=== PATIENT | male | born 1980 | race Caucasian/White ===

== ENCOUNTER 2016-09-13 18:03 | Inpatient (IN) | payer OTHER ==
[~2016-09-13] VITALS: Ht 182.9 cm; Wt 82.4 kg
[2016-09-13] MEDS ORDERED: SODIUM CHLORIDE 0.9% 1000ML 1,000 ML IV STA ×2 (18:22→19:43)
[2016-09-13] MEDS ORDERED: KETOROLAC TROMETHAMINE 30 MG/ML VIAL IV STA (18:22)
[2016-09-13] MEDS ORDERED: LIDOCAINE/EPINEPHRINE 1% 20 ML VIAL INFIL ONE (18:30)
[2016-09-13] MEDS ORDERED: CEFTRIAXONE SOD INJ 1 GM ADDVIAL IV STA (18:41)
[2016-09-13 18:57] LABS: BASO % 0.1 %; BASO ABS # 0.02 K/uL (0-0.2); COMPLETE YES; EOS % 0.3 %; HEMATOCRIT 45.5 % (42-52); IG% 0.3 %; LYMPH % 14.6 %; LYMPH ABS # 2.68 K/uL (1.2-3.4); MEAN CELL VOLUME 89.2 fL (80-100); MEAN CORPUSCULAR HGB CONC 35.8 g/dl (32-36); MEAN PLATELET VOLUME 9.8 fL (7.4-10.4); MONO % 9.7 %; PLATELET COUNT 310 K/uL (130-400); WHITE BLOOD COUNT 18.38 K/uL (4.8-10.8)
[2016-09-13 19:13] LABS: BUN/CREATININE RATIO 9.4 (10-20); CALCIUM 9.4 mg/dl (8.5-10.1); CREATININE 0.98 mg/dl (0.60-1.40); POTASSIUM 3.8 mmol/L (3.5-5.1)
[2016-09-13] MEDS ORDERED: MoRPHine SULFATE 10 MG/ML CARP/VIAL IV STA (19:32)
--- NOTE | 2016-09-13 19:33 | DIAGNOSTIC IMAGING REPORT ---
LEFT FOREARM 2 VIEWS HISTORY: left arm abscess, IV drug user, r/o foreign body COMPARISON: None. FINDINGS: There is no fracture or dislocation. Soft tissue swelling anteriorly. No radiopaque foreign bodies. IMPRESSION: Anterior soft tissue swelling. No radiopaque foreign bodies. Electronically signed by: Arun Pagan M.D. 09/13/2016 7:31 PM Dictated Date/Time: 09/13/2016 7:31 PM
[2016-09-13] MEDS ORDERED: CLINDAMYCIN IV 900 MG in DEXTROSE 5% ADD-VANTAGE 100ML 100 ML IV ONE (19:45)
[2016-09-13] MEDS ORDERED: ACETAMINOPHEN 500 MG TAB PO STA (20:24)
--- NOTE | 2016-09-13 20:50 | EMERGENCY ROOM VISIT NOTE ---
History First contact with patient: 18:11 Chief Complaint: WOUND INFECTION Stated Complaint: LUMP ON LF ARM Nursing Triage Summary: Left anterior forearm with redness/swelling in the shape of a [place]. Three raised bumps noted. He relates that it is painful. He relates that he injected heroine with a mixture of water into the vein with a clean needle. He relates that a small amount was administered. History of Present Illness The patient is a 35 year old male who presents to the Emergency Room with complaints of left arm pain and swelling. The patient states that he is an IV drug user. He notes that 3-4 days ago, he attempted to inject heroin into his left forearm but missed. He reports that there was initially a small bump on the forearm, but this has gradually increased in size and become red and warm to touch over the past several days. He denies fevers but states that he has been nauseous. He denies any history of infections. He has not taken any medication for his pain. He rates his discomfort a 9/10. The patient reports he has used heroin for the past 3-4 years. He has recently been buying Subutex from his friends in an attempt to quit using heroin. He has never been to rehabilitation and states this is because he does not have health insurance. He is requesting help quitting heroin. He denies any suicidal or homicidal ideations. He reports a history of mild asthma but denies any daily medications. He reports a penicillin allergy and states he has not had this since he was very young, but believes he had a rash. Review of Systems A complete 10 point review of systems was reviewed with the patient with pertinent positives and negatives as per history of present illness. All else were negative. Past Medical/Surgical History Medical Problems: (1) Cellulitis and abscess of upper arm and forearm (2) Sepsis affecting skin Social History Smoking Status: Current Every Day Smoker Current/Historical Medications No Active Prescriptions or Reported Meds Allergies Coded Allergies: Penicillins (Unverified Allergy, Mild, 09/13/16) Physical Exam Vital Signs Date Time Temp Pulse Resp B/P Pulse Ox O2 Delivery O2 Flow Rate FiO2 09/13/16 20:38 110 09/13/16 20:17 37.7 96 20 129/76 97 Room Air 09/13/16 20:16 100 Room Air 09/13/16 18:06 37.5 129 20 138/84 98 Room Air Physical Exam VITALS: Vitals are noted on the nurse's note and reviewed by myself. Vital signs stable. GENERAL: This is a 35-year-old male, uncomfortable appearing, nondiaphoretic, well-developed well-nourished. SKIN: There is an area of erythema, warmth and fluctuance over the left anterior proximal forearm which measures approximately 3.5 cm in diameter. There is no drainage or pointing. Significant tenderness to palpation. There is mild erythema over the anterior aspect of the left upper arm. HEENT: Normocephalic. PERRLA. EOMI. Nares patent. Mucous membranes moist. Neck is supple without nuchal rigidity. HEART: Regular rate and rhythm without murmurs gallops or rubs. LUNGS: Clear to auscultation bilaterally without wheezes, rales or rhonchi. MUSCULOSKELETAL: Full range of motion of the left elbow and wrist. Radial pulses 2+. NEURO: Patient was alert and oriented to person place and time. Normal sensation to light and sharp touch. Medical Decision & Procedures ER Provider Diagnostic Interpretation: LEFT FOREARM 2 VIEWS HISTORY: left arm abscess, IV drug user, r/o foreign body COMPARISON: None. FINDINGS: There is no fracture or dislocation. Soft tissue swelling anteriorly. No radiopaque foreign bodies. IMPRESSION: Anterior soft tissue swelling. No radiopaque foreign bodies. Laboratory Results 09/13/16 18:40 Red Blood Count 5.10, Mean Corpuscular Volume 89.2, Mean Corpuscular Hemoglobin 32.0, Mean Corpuscular Hemoglobin Concent 35.8, Mean Platelet Volume 9.8, Neutrophils (%) (Auto) 75.0, Lymphocytes (%) (Auto) 14.6, Monocytes (%) (Auto) 9.7, Eosinophils (%) (Auto) 0.3, Basophils (%) (Auto) 0.1, Neutrophils # (Auto) 13.79, Lymphocytes # (Auto) 2.68, Monocytes # (Auto) 1.79, Eosinophils # (Auto) 0.05, Basophils # (Auto) 0.02 09/13/16 18:40 Test 09/13/16 18:40 09/13/16 21:12 White Blood Count 18.38 K/uL (4.8-10.8) Red Blood Count 5.10 M/uL (4.7-6.1) Hemoglobin 16.3 g/dL (14.0-18.0) Hematocrit 45.5 % (42-52) Mean Corpuscular Volume 89.2 fL (80-100) Mean Corpuscular Hemoglobin 32.0 pg (25-34) Mean Corpuscular Hemoglobin Concent 35.8 g/dl (32-36) Platelet Count 310 K/uL (130-400) Mean Platelet Volume 9.8 fL (7.4-10.4) Neutrophils (%) (Auto) 75.0 % Lymphocytes (%) (Auto) 14.6 % Monocytes (%) (Auto) 9.7 % Eosinophils (%) (Auto) 0.3 % Basophils (%) (Auto) 0.1 % Neutrophils # (Auto) 13.79 K/uL (1.4-6.5) Lymphocytes # (Auto) 2.68 K/uL (1.2-3.4) Monocytes # (Auto) 1.79 K/uL (0.11-0.59) Eosinophils # (Auto) 0.05 K/uL (0-0.5) Basophils # (Auto) 0.02 K/uL (0-0.2) RDW Standard Deviation 42.7 fL (36.4-46.3) RDW Coefficient of Variation 13.0 % (11.5-14.5) Immature Granulocyte % (Auto) 0.3 % Immature Granulocyte # (Auto) 0.05 K/uL (0.00-0.02) Anion Gap 10.0 mmol/L (3-11) Est Creatinine Clear Calc Drug Dose 116.6 ml/min Estimated GFR () 116.1 Estimated GFR (Non- 100.2 BUN/Creatinine Ratio 9.4 (10-20) Calcium Level 9.4 mg/dl (8.5-10.1) Medications Administered Medications (Trade) Dose Ordered Sig/Marilee Route Start Time Stop Time Status Last Admin Dose Admin Lidocaine/ Epinephrine (Xylocaine/Epine 1% Inj) 20 ml ONE ONCE INFIL 09/13/16 18:30 09/13/16 18:31 DC 09/13/16 19:04 20 ML Ketorolac Tromethamine 30 mg 30 mg NOW STAT IV 09/13/16 18:22 09/13/16 18:25 DC 09/13/16 19:05 30 MG Sodium Chloride (Nss 1000ml) 1,000 ml @ 999 mls/hr Q1H1M STAT IV 09/13/16 18:22 09/13/16 19:22 DC 09/13/16 19:04 999 MLS/HR Ceftriaxone Sodium 1 gm 1 gm NOW STAT IV 09/13/16 18:41 09/13/16 18:42 DC 09/13/16 19:05 1 GM Clindamycin Phosphate/Dextrose (Cleocin Iv/ Dextrose Add-Loomis 100ML) 106 ml @ 100 mls/hr ONE ONCE IV 09/13/16 19:45 09/13/16 20:48 DC 09/13/16 19:53 100 MLS/HR Morphine Sulfate 8 mg 8 mg NOW STAT IV 09/13/16 19:32 09/13/16 19:33 DC 09/13/16 19:32 8 MG Sodium Chloride (Nss 1000ml) 1,000 ml @ 999 mls/hr Q1H1M STAT IV 09/13/16 19:43 09/13/16 20:43 DC 09/13/16 20:00 999 MLS/HR Acetaminophen (Tylenol Tab) 1,000 mg NOW STAT PO 09/13/16 20:24 09/13/16 20:25 DC 09/13/16 20:29 1,000 MG Acetaminophen (Tylenol Tab) 650 mg Q4H PRN PO 09/13/16 21:15 10/13/16 21:14 09/13/16 22:32 650 MG Ondansetron HCl (Zofran Inj) 4 mg Q6H PRN IV 09/13/16 21:15 10/13/16 21:14 09/13/16 22:32 4 MG Procedure Verbal consent was obtained to perform the procedure. After saline and Betadine cleansing and 5 mL of 1% buffered lidocaine with epinephrine anesthesia , the abscess was incised with a number 11 scalpel blade. A large amount of purulent material was released with more expressed by pressure. A swab was obtained for culture. The abscess cavity was further probed with a needle furniture mover driver and the deep pocket expressed. The abscess cavity was then copiously irrigated with sterile saline under pressure. The area was then packed with sterile packing. The area was cleaned with sterile saline and dressed with bacitracin and a bulky bandage. The patient tolerated the procedure well. ED Course The patient was evaluated as above. Labs were drawn and IV access was obtained. Blood cultures were drawn. Patient was medicated with 1 g Rocephin. He was given 30 mg Toradol for pain. Patient was reevaluated and had continued pain. Patient was given 8 mg morphine IV. Incision and drainage was performed as noted in the procedure section. [facility] They agreed to evaluate the patient for admission. Medical Decision Differential diagnosis includes cellulitis, abscess, sepsis, among others. The patient is a 35-year-old male who presents today complaining of left forearm swelling and pain. Physical exam reveals a large abscess with surrounding cellulitis. Labs revealed a leukocytosis of greater than 18,000. Lactic acid was elevated at 3.4. Blood cultures are pending. The patient was given initial doses of Rocephin and clindamycin. Incision and drainage was performed. Wound culture was obtained and is pending. The patient is febrile and tachycardic. He is septic secondary to the forearm abscess. He does have a history of IV drug use and states he would like help getting clean. The case was discussed with Dr. Gonzalez, ED attending physician. The patient was admitted to the [facility] service for further evaluation and care. Impression Primary Impression: Sepsis Additional Impression: Abscess of left forearm Departure Information Prescriptions No Active Prescriptions or Reported Meds Referrals Ousmane Loja M.D. (PCP) Patient Instructions My [facility] Problem Qualifiers Primary Impression: Sepsis Sepsis type: sepsis due to unspecified organism Qualified Codes: A41.9 - Sepsis, unspecified organism
--- NOTE | 2016-09-13 21:56 | History and Physical ---
History & Physical Date & Time of Service: September 13, 2016 at 21:23 Chief Complaint: Lump On Lf Arm Primary Care Physician: Ousmane Loja M.D. History of Present Illness Source: patient This is a 35 yo m that is presenting to us with redness/ pain in the left upper extremity after the patient tried to inject heroin into that arm "and missed". he stated that it started out as a small bump and has been progressively getting worse. It is an "ache like" pain and currently grades it as a 6/10. The wound was drained in the ED and pus was noted and sent for culture. He denies any chest pain, SOB, numbness/ tingling, weakness of the upper extremity. he had a subjective fever over the last 24 hours however. He does not take any medications and no known PMHx. He has not had surgeries in the past. He has not had any dental work recently nor any dental infection. Aside from heroin patient does note he smokes marijuana occasionally. Patient consented to HIV testing. PDMP reviewed and no concerns. Past Medical/Surgical History Drug Abuser Family History No significant family history Social History Smoking Status: Current Every Day Smoker (1 PPDx 15 year) Smokeless Tobacco Use: No Drug Use: heroin, marijuana Marital Status: single Housing status: lives with family (lives with parents) Multi-Drug Resistant Organisms History of MDRO: No Allergies Coded Allergies: Penicillins (Unverified Allergy, Mild, 09/13/16) Home Medications No Active Prescriptions or Reported Meds Review of Systems Constitutional: + chills, + fever Eyes: No worsening of vision ENT: No hearing loss Respiratory: No cough, No dyspnea at rest, No dyspnea on exertion, No shortness of breath, No sputum, No wheezing Cardiovascular: No chest pain Abdomen: No constipation, No diarrhea, No nausea, No pain, No vomiting Musculoskeletal: + swelling (as noted above), No joint pain, No muscle pain Genitourinary - Male: No dysuria, No hematuria Neurologic: No numbness/tingling, No weakness Endocrine: + fatigue Integumentary: + color change (as noted above) Physical Exam Vital Signs Date Time Temp Pulse Resp B/P Pulse Ox O2 Delivery O2 Flow Rate FiO2 09/13/16 20:38 110 09/13/16 20:17 37.7 96 20 129/76 97 Room Air 09/13/16 20:16 100 Room Air 09/13/16 18:06 37.5 129 20 138/84 98 Room Air General Appearance: no apparent distress Head: normocephalic, atraumatic Eyes: normal inspection ENT: normal ENT inspection, + pertinent finding (poor dentition) Neck: supple Respiratory/Chest: + pertinent finding (coarse breath sounds, occasional wheeze ) Cardiovascular: regular rate, rhythm, no murmur Abdomen/GI: normal bowel sounds, non tender, soft Back: normal inspection Extremities/Musculoskelatal: normal inspection, no calf tenderness, no pedal edema, + swelling (cellulitis noted from the left mid forarm on the palmar aspect and extends to the mid upper arm ) Neurologic/Psych: alert, normal mood/affect, oriented x 3 Skin: normal color, warm/dry, no rash Lymphatic: no adenopathy Diagnostics Laboratory Results Results Past 24 Hours Test 09/13/16 18:40 09/13/16 21:12 Range/Units White Blood Count 18.38 4.8-10.8 K/uL Red Blood Count 5.10 4.7-6.1 M/uL Hemoglobin 16.3 14.0-18.0 g/dL Hematocrit 45.5 42-52 % Mean Corpuscular Volume 89.2 80-100 fL Mean Corpuscular Hemoglobin 32.0 25-34 pg Mean Corpuscular Hemoglobin Concent 35.8 32-36 g/dl Platelet Count 310 130-400 K/uL Mean Platelet Volume 9.8 7.4-10.4 fL Neutrophils (%) (Auto) 75.0 % Lymphocytes (%) (Auto) 14.6 % Monocytes (%) (Auto) 9.7 % Eosinophils (%) (Auto) 0.3 % Basophils (%) (Auto) 0.1 % Neutrophils # (Auto) 13.79 1.4-6.5 K/uL Lymphocytes # (Auto) 2.68 1.2-3.4 K/uL Monocytes # (Auto) 1.79 0.11-0.59 K/uL Eosinophils # (Auto) 0.05 0-0.5 K/uL Basophils # (Auto) 0.02 0-0.2 K/uL RDW Standard Deviation 42.7 36.4-46.3 fL RDW Coefficient of Variation 13.0 11.5-14.5 % Immature Granulocyte % (Auto) 0.3 % Immature Granulocyte # (Auto) 0.05 0.00-0.02 K/uL Sodium Level 136 136-145 mmol/L Potassium Level 3.8 3.5-5.1 mmol/L Chloride Level 98 98-107 mmol/L Carbon Dioxide Level 28 21-32 mmol/L Anion Gap 10.0 3-11 mmol/L Blood Urea Nitrogen 9 7-18 mg/dl Creatinine 0.98 0.60-1.40 mg/dl Est Creatinine Clear Calc Drug Dose 116.6 ml/min Estimated GFR () 116.1 Estimated GFR (Non- 100.2 BUN/Creatinine Ratio 9.4 10-20 Random Glucose 102 70-99 mg/dl Lactic Acid Level 3.4 0.4-2.0 mmol/L Calcium Level 9.4 8.5-10.1 mg/dl Microbiology Results 09/13/16 Blood Culture, Received Pending 09/13/16 Blood Culture, Received Pending 09/13/16 Gram Stain, Received Pending 09/13/16 Wound Culture, Received Pending Diagnostic Radiology LEFT FOREARM 2 VIEWS HISTORY: left arm abscess, IV drug user, r/o foreign body COMPARISON: None. FINDINGS: There is no fracture or dislocation. Soft tissue swelling anteriorly. No radiopaque foreign bodies. IMPRESSION: Anterior soft tissue swelling. No radiopaque foreign bodies. Impression Assessment and Plan This is a 35 yo m suffering from sepsis secondary to cellulitis in the left forearm Sepsis secondary to left forearm cellulitis (leukocytosis, fever, elevated lactate) - Medsurg admission, hemodynamically stable - Cont Rocephin and add Vanco - Repeat lactate and a procal - trend CBC - to kofi cellulitis with a marker - NSS with 20 KCL @ 150cc/h - echo to r/o endocarditis - blood culture pending - wound culture pending Coarse breath sounds; tobacco abuser - CXR to evaluate - Duoneb prn - smoking cessation counselling Heroin Abuser - Ativan and BB prn - HIV and HCV DVT Prophylaxis - SCD, patient is mobile Resident Physician Supervision Note: I was present with Dr. Gotti during the history and exam. I discussed the case with the resident and agree with the findings and plan as documented in the note. Any exceptions or clarifications are listed here: 35 y/o M Hx intermittent IVDU - long-term Heroin abuse - presenting with injection site abscess, fevers - leukocytosis and lactic acidosis on initial labs. I&D peformed in ER OE AAO x 3 S1,2 R CTAB NT, ND, BS + No CCE + abscess/cellulitis L arm P: Vanc + Rocephin pending cultures Withdrawal measures inc PRN Ativan and Clonidine - may need referral to rehab following D/C If fevers persist and blood cultures pos - may need endocarditis w/u Documented By: Julian Rangel Level of Care Med/Surg Resuscitation Status FULL RESUSCITATION VTE Prophylaxis VTE Risk Assessment Done? Y/N: Yes Risk Level: Moderate Given or contraindicated: SCD's Social Service Consult None Apply Note Total Time: Critical Care 30 - 74 minutes Additional Copies To Ousmane Loja M.D.
[2016-09-13] MEDS ORDERED: ALBUT/IPRATROP 3MG/0.5MG NEB 3 ML VIAL INH PRN (22:00)
[2016-09-13] MEDS ORDERED: LORAZEPAM 2 MG/ML 1 ML VIAL IV PRN (22:00)
[2016-09-13] MEDS ORDERED: METOPROLOL TARTRATE 1 MG/ML VIAL IV PRN (22:00)
[2016-09-13 22:10] VITALS: BP 129/75; PULSE 100; TEMP 37.8; O2SAT 96
--- NOTE | 2016-09-13 22:11 | DIAGNOSTIC IMAGING REPORT ---
CHEST 2 VIEWS ROUTINE HISTORY: coarse breath sounds, fever COMPARISON: None. FINDINGS: The lungs are clear. Cardiac silhouette is normal in size. No pleural effusions. No pneumothorax. IMPRESSION: No acute process. Electronically signed by: Arun Pagan M.D. 09/13/2016 10:09 PM Dictated Date/Time: 09/13/2016 10:08 PM
[2016-09-13 22:18] VITALS: BP 129/75; PULSE 100; TEMP 37.8; O2SAT 96; Ht 182.9 cm; Wt 82.4 kg
[2016-09-13] MEDS ORDERED: VANCOMYCIN INJ 2,000 MG in SODIUM CHLORIDE 0.9% 500ML 500 ML IV ONE (22:30)
[2016-09-13] MEDS ORDERED: VANCOMYCIN CONSULT ACTIVE PRN (22:30)
[2016-09-13] MEDS ORDERED: NSS + 20MEQ KCL 1000ML 1,000 ML IV SCH (22:30)
[2016-09-13] MEDS: ONDANSETRON INJ 2 MG/ML 2 ML VIAL IV PRN (22:32)
[2016-09-13] MEDS: ACETAMINOPHEN 325 MG TAB PO PRN (22:32)
[2016-09-13] MEDS ORDERED: MoRPHine SULFATE 4 MG/ML 1 ML CARP\\VIAL ONE (23:11)
[2016-09-13 23:24] VITALS: BP 131/81; PULSE 99; TEMP 37.4; O2SAT 99
[2016-09-13] MEDS: LORAZEPAM INJ 1 MG in SYRINGE 0.5 ML IV PRN (23:24)
[2016-09-14] VITALS (11 sets, daily range): BP systolic 107–131; BP diastolic 61–83; PULSE 90–104; TEMP 36.7–37.6; O2SAT 94–99
[2016-09-14] MEDS: MoRPHine SULFATE 4 MG/ML 1 ML CARP\\VIAL IV PRN ×2 (01:48→03:26)
[2016-09-14] MEDS: LORAZEPAM INJ 1 MG in SYRINGE 0.5 ML IV PRN (03:14)
[2016-09-14] MEDS ORDERED: HYDROmorphone INJ 1 MG/ML SYR ONE (05:26)
[2016-09-14] MEDS: SODIUM CHLORIDE 0.9% 1000ML 1,000 ML IV SCH ×3 (05:28→18:28)
[2016-09-14] MEDS: VANCOMYCIN INJ 1,300 MG in SODIUM CHLORIDE 0.9% 250ML 250 ML IV SCH ×3 (05:33→21:52)
[2016-09-14 07:24] LABS: HEMATOCRIT 38.7 % (42-52); MEAN CELL VOLUME 88.4 fL (80-100); MEAN CORPUSCULAR HEMOGLOBIN 29.7 pg (25-34); MEAN CORPUSCULAR HGB CONC 33.6 g/dl (32-36); MEAN PLATELET VOLUME 9.3 fL (7.4-10.4); PLATELET COUNT 231 K/uL (130-400); RED BLOOD COUNT 4.38 M/uL (4.7-6.1); WHITE BLOOD COUNT 16.46 K/uL (4.8-10.8)
[2016-09-14 08:11] LABS: BUN/CREATININE RATIO 16.7 (10-20); CALCIUM 7.4 mg/dl (8.5-10.1); CREATININE 0.71 mg/dl (0.60-1.40)
[2016-09-14] MEDS: METOPROLOL TARTRATE 25 MG TAB PO SCH ×3 (08:18→20:46)
[2016-09-14] MEDS: ACETAMINOPHEN 325 MG TAB PO PRN (08:19)
[2016-09-14] MEDS: HYDROmorphone INJ 1 MG/ML SYR IV PRN ×4 (08:20→20:06)
--- NOTE | 2016-09-14 11:21 | Pharmacy Progress Note ---
Pharmacy Antibiotic Consult Date of Service: September 14, 2016. Pharmacy Dosing Scope Pharmacy is consulted to initiate vancomycin IV dosing therapy, order appropriate labs and adjust drug dose/frequency. Subjective The patient is a 35 year old male admitted on September 13, 2016 at 21:21. Objective Height (Feet): 6 Height (Inches): 0.00 Weight (Kilograms): 82.400 Lab Results (24hrs): Test 09/13/16 18:40 09/13/16 23:54 09/14/16 06:56 09/14/16 07:55 White Blood Count 18.38 K/uL (4.8-10.8) 16.46 K/uL (4.8-10.8) Red Blood Count 5.10 M/uL (4.7-6.1) 4.38 M/uL (4.7-6.1) Hemoglobin 16.3 g/dL (14.0-18.0) 13.0 g/dL (14.0-18.0) Hematocrit 45.5 % (42-52) 38.7 % (42-52) Mean Corpuscular Volume 89.2 fL (80-100) 88.4 fL (80-100) Mean Corpuscular Hemoglobin 32.0 pg (25-34) 29.7 pg (25-34) Mean Corpuscular Hemoglobin Concent 35.8 g/dl (32-36) 33.6 g/dl (32-36) Platelet Count 310 K/uL (130-400) 231 K/uL (130-400) Mean Platelet Volume 9.8 fL (7.4-10.4) 9.3 fL (7.4-10.4) Neutrophils (%) (Auto) 75.0 % Lymphocytes (%) (Auto) 14.6 % Monocytes (%) (Auto) 9.7 % Eosinophils (%) (Auto) 0.3 % Basophils (%) (Auto) 0.1 % Neutrophils # (Auto) 13.79 K/uL (1.4-6.5) Lymphocytes # (Auto) 2.68 K/uL (1.2-3.4) Monocytes # (Auto) 1.79 K/uL (0.11-0.59) Eosinophils # (Auto) 0.05 K/uL (0-0.5) Basophils # (Auto) 0.02 K/uL (0-0.2) RDW Standard Deviation 42.7 fL (36.4-46.3) 42.3 fL (36.4-46.3) RDW Coefficient of Variation 13.0 % (11.5-14.5) 13.0 % (11.5-14.5) Immature Granulocyte % (Auto) 0.3 % Immature Granulocyte # (Auto) 0.05 K/uL (0.00-0.02) Sodium Level 136 mmol/L (136-145) 141 mmol/L (136-145) Potassium Level 3.8 mmol/L (3.5-5.1) 4.0 mmol/L (3.5-5.1) Chloride Level 98 mmol/L (98-107) 110 mmol/L (98-107) Carbon Dioxide Level 28 mmol/L (21-32) 25 mmol/L (21-32) Anion Gap 10.0 mmol/L (3-11) 6.0 mmol/L (3-11) Blood Urea Nitrogen 9 mg/dl (7-18) 12 mg/dl (7-18) Creatinine 0.98 mg/dl (0.60-1.40) 0.71 mg/dl (0.60-1.40) Est Creatinine Clear Calc Drug Dose 116.6 ml/min 160.9 ml/min Estimated GFR () 116.1 141.9 Estimated GFR (Non- 100.2 122.4 BUN/Creatinine Ratio 9.4 (10-20) 16.7 (10-20) Random Glucose 102 mg/dl (70-99) 95 mg/dl (70-99) Lactic Acid Level 3.4 mmol/L (0.4-2.0) 2.6 mmol/L (0.4-2.0) Calcium Level 9.4 mg/dl (8.5-10.1) 7.4 mg/dl (8.5-10.1) Procalcitonin < 0.05 ng/ml (0-0.5) Hepatitis C Antibody PRELIM POS (NEG) HIV (1&2) Ab and P24 Ag, 4th Gener NEG (NEG) Assessment & Plan Patient started on vancomycin and rocephin (not consult) for sepsis/cellulitis. BC x 2 are pending, arm abscess culture pending. Of note, hx of IV drug abuse Vancomycin: * Received LD of vancomycin 2 gm x 1 (~25mg/kg) last evening * Started on MD of vancomycin 1300 mg (~15 mg/kg) iv q 8 hrs to achieve an estimated trough ~15-20 mcg/ml (goal for sepsis/abscess) * Trough level ordered prior to the 0600 dose on 09/15 to ensure therapeutic * Estimated kinetics: t1/2~7 hrs, ke~0.01, CrCl >100 ml/min Pharmacy will continue to follow and will adjust dose/frequency as necessary. Thank you
--- NOTE | 2016-09-14 12:04 | Family Medicine Progress Note ---
Progress Note Date of Service September 14, 2016. Subjective Pt evaluation today including: conversation w/ patient, physical exam, chart review, lab review Pain: continues to have pain in the arm Voiding: no voiding problems, no incontinence Complains of some nausea currently Last had heroin 3 days ago; states that he really wants to get off it or on a suboxone program Feels slightly agitated at this time but medications are helping him with pain No other issues overnight or since admission Constitutional: No chills, No fever, No sweats Eyes: No eye pain, No redness, No worsening of vision ENT: No hearing loss, No nasal symptoms, No sore throat Respiratory: No cough, No dyspnea on exertion, No shortness of breath, No sputum Cardiovascular: No PND, No chest pain, No edema, No orthopnea Abdomen: No diarrhea, No nausea, No pain, No vomiting Male : No dysuria, No incontinence, No urinary frequency Neurologic: No memory loss, No numbness/tingling, No paralysis, No weakness Heme: No abnormal bleeding/bruising, No night sweats, No swollen lymph nodes Skin: + problem reported (left arm,foerarm redness) Medications Current Inpatient Medications Medications (Trade) Dose Ordered Sig/Marilee Route Start Time Stop Time Status Last Admin Dose Admin Acetaminophen (Tylenol Tab) 650 mg Q4H PRN PO 09/13/16 21:15 10/13/16 21:14 09/14/16 08:19 650 MG Ondansetron HCl 4 mg 4 mg Q6H PRN IV 09/13/16 21:15 10/13/16 21:14 09/13/16 22:32 4 MG Sodium Chloride 1,000 ml @ 150 mls/hr Q6H40M IV 09/14/16 05:00 09/15/16 00:59 09/14/16 05:28 150 MLS/HR Ceftriaxone Sodium/Dextrose (Rocephin Inj/ Dextrose Add-Pullman 50ML) 50 ml @ 100 mls/hr Q24H IV 09/14/16 19:00 09/23/16 18:59 Albuterol/ Ipratropium (Duoneb) 3 ml Q4R PRN INH 09/13/16 22:00 10/13/16 21:59 Vancomycin HCl (Consult) 1 ea UD PRN N/A 09/13/16 22:30 10/13/16 22:29 Metoprolol Tartrate 12.5 mg 12.5 mg TID PO 09/14/16 09:00 10/14/16 08:59 09/14/16 08:18 12.5 MG Lorazepam 1 mg/ Syringe 1 ml @ 1 mls/min Q2H PRN IV 09/13/16 23:15 10/13/16 23:14 09/14/16 03:14 1 MLS/MIN Vancomycin HCl/ Sodium Chloride (Vancomycin Inj/ Nss 250ml) 276 ml @ 125 mls/hr Q8H IV 09/14/16 06:00 09/24/16 05:59 09/14/16 05:33 125 MLS/HR Morphine Sulfate (MoRPHine SULFATE INJ) 4 mg Q2H PRN IV 09/14/16 05:15 09/28/16 05:14 Hydromorphone HCl (Dilaudid Inj) 1 mg Q2H PRN IV 09/14/16 04:45 09/28/16 04:44 09/14/16 08:20 1 MG Objective Vital Signs Date Time Temp Pulse Resp B/P Pulse Ox O2 Delivery O2 Flow Rate FiO2 09/14/16 10:59 37.2 09/14/16 07:50 Room Air 09/14/16 07:01 37.6 104 20 115/78 98 Room Air 09/13/16 23:24 37.4 99 16 131/81 99 Room Air 09/13/16 23:02 Room Air 09/13/16 22:18 37.8 100 16 129/75 96 Room Air 09/13/16 22:10 37.8 100 16 129/75 96 Room Air 09/13/16 21:50 37.3 09/13/16 20:38 110 09/13/16 20:17 37.7 96 20 129/76 97 Room Air 09/13/16 20:16 100 Room Air 09/13/16 18:06 37.5 129 20 138/84 98 Room Air Physical Exam General Appearance: WD/WN, no apparent distress Eyes: normal inspection, EOMI ENT: hearing grossly normal, pharynx normal Neck: supple, no adenopathy, no JVD Respiratory/Chest: chest non-tender, no respiratory distress, no accessory muscle use, + wheezing (bilateral) Cardiovascular: regular rate, rhythm, no gallop, no murmur Extremities: non-tender, no pedal edema, + pertinent finding (left arm swelling and tenderness) Neurologic/Psychiatric: no motor/sensory deficits, alert, oriented x 3 Skin: + pertinent finding (marked purulence from left forearm; erythema extended to upper arm; marked with marker, has not extended yet; distal pulses in hand are both present, good capillary refill) Laboratory Results Last 24 Hours Test 09/13/16 18:40 09/13/16 23:54 09/14/16 06:56 09/14/16 07:55 White Blood Count 18.38 K/uL 16.46 K/uL Red Blood Count 5.10 M/uL 4.38 M/uL Hemoglobin 16.3 g/dL 13.0 g/dL Hematocrit 45.5 % 38.7 % Mean Corpuscular Volume 89.2 fL 88.4 fL Mean Corpuscular Hemoglobin 32.0 pg 29.7 pg Mean Corpuscular Hemoglobin Concent 35.8 g/dl 33.6 g/dl Platelet Count 310 K/uL 231 K/uL Mean Platelet Volume 9.8 fL 9.3 fL Neutrophils (%) (Auto) 75.0 % Lymphocytes (%) (Auto) 14.6 % Monocytes (%) (Auto) 9.7 % Eosinophils (%) (Auto) 0.3 % Basophils (%) (Auto) 0.1 % Neutrophils # (Auto) 13.79 K/uL Lymphocytes # (Auto) 2.68 K/uL Monocytes # (Auto) 1.79 K/uL Eosinophils # (Auto) 0.05 K/uL Basophils # (Auto) 0.02 K/uL RDW Standard Deviation 42.7 fL 42.3 fL RDW Coefficient of Variation 13.0 % 13.0 % Immature Granulocyte % (Auto) 0.3 % Immature Granulocyte # (Auto) 0.05 K/uL Sodium Level 136 mmol/L 141 mmol/L Potassium Level 3.8 mmol/L 4.0 mmol/L Chloride Level 98 mmol/L 110 mmol/L Carbon Dioxide Level 28 mmol/L 25 mmol/L Anion Gap 10.0 mmol/L 6.0 mmol/L Blood Urea Nitrogen 9 mg/dl 12 mg/dl Creatinine 0.98 mg/dl 0.71 mg/dl Est Creatinine Clear Calc Drug Dose 116.6 ml/min 160.9 ml/min Estimated GFR () 116.1 141.9 Estimated GFR (Non- 100.2 122.4 BUN/Creatinine Ratio 9.4 16.7 Random Glucose 102 mg/dl 95 mg/dl Lactic Acid Level 3.4 mmol/L 2.6 mmol/L Calcium Level 9.4 mg/dl 7.4 mg/dl Procalcitonin < 0.05 ng/ml Hepatitis C Antibody PRELIM POS HIV (1&2) Ab and P24 Ag, 4th Gener NEG Assessment and Plan This is a 35 year old male with history of opioid abuse with purulent left forearm cellulitis, secondary to IVDU. Patient has also expressed desire to stop heroine use. Sepsis secondary to left forearm cellulitis (leukocytosis, fever, elevated lactate) - Remains afebrile, mild tachycardia at low 100s - Repeat lactate coming down; repeat Lactate and procalcitonin with AM labs - Continue Rocephin and Vancomycin - Purulence warrants surgical consultation; recommendations appreciated Discussed case with consulting team, needs to have surgical intervention, will go today; see their note for details of consult - NPO, continue IVF at maintenance NSS + 20mEq KCL at 150 - Echo done this morning, report pending - blood and wound cultures are pending Coarse breath sounds; tobacco abuser - Bilateral wheezing - Recommend treatment with Duoneb this morning - No evidence of respiratory distress or hypoxia - Wound benefit from smoking cessation counselling - Nicotine patch Heroin Abuser - Continue Ativan and Metoprolol - Hep C screen positive --> confirmatory testing is pending - HIV testing pending - 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 and to determine what options are available to him DVT Prophylaxis - SCD - Hold pharmacological anticoagulation as patient is for surgery today Disposition - Med/Surg Continued [facility] stay due to: fever Discharge planning: uncertain Reviewed: Pt Seen/Exam by Me History continuing to have pain in left arm Constitutional: denies: fever Respiratory: negative: short of breath Cardiovascular: denies chest pain General Appearance: mild distress Respiratory: no respiratory distress Cardiovascular: regular rate, rhythm Neurologic/Psychiatric: alert, oriented x 3 Skin Characteristics: other (left forearm - erythema has receded the pen- marked area but the forearm wound is draining purulent material and the area around the arm is tender. Neuro-vasuclar intact. ) Assessment/Plan I have reviewed the medical record and performed a history and physical examination of this patient today. I have discussed the case with Dr. Holley. The above note reflects my findings, conclusions, and recommendations.
--- NOTE | 2016-09-14 12:36 | CONSULTATION REPORT ---
DATE OF CONSULTATION: 09/14/2016 At request of the medical service for an abscess of the left forearm. SUMMARY: This is a 35-year-old gentleman who injected his left forearm approximately 3 days ago with heroin. The family, father and mother are aware of what was going on and they noticed some lump there with some drainage and was brought into the Emergency Room where this was spontaneously draining and apparently was packed, cultures were taken and we were asked to see him for the possibility that this is a compartment syndrome since the patient has quite a bit of pain in his left forearm and left upper arm. PAST MEDICAL HISTORY: Pretty much unremarkable. His heroin (not sure if black tar variety) dose is also supplemented with marijuana occasionally. He denies any oxycodone use. ALLERGIES: HE HAS AN ALLERGY TO PENICILLIN. PAST SURGICAL HISTORY: He has had no previous surgeries. PHYSICAL EXAMINATION: GENERAL: At this time, the patient is in no acute distress. He has a dressing in his left forearm. HEAD: Normocephalic. EYES: PERRLA. The sclerae is nonicteric. NECK: There is no cervical lymphadenopathy. HEART: Normal sinus. LUNGS: Clear. ABDOMEN: Benign. EXTREMITIES: Grossly normal in the lower extremity and left upper extremity has a dressing, which I removed and it basically had some packing, a quarter-inch packing in the abscess cavity which was spontaneously draining some whitish purulent material. He also had an outlined by a marker in the left upper arm and apparently the cellulitis extended up to that area but this seems to be subsided, most of the discomfort seems to be around the elbow area. He is able to flex his left forearm somewhat. There is no problem with extension. He has a good +4 radial pulses. 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 IMPRESSION AND PLAN: At this point, I think he needs wider incision and drainage of this abscess or inflammatory tissue and we will plan for it at approximately 4 hours since the patient had breakfast this morning and would like to give general anesthesia since just removing the dressing the patient was in quite a bit of pain. The situation was discussed with the patient and the parents(given permission by pt) and they agree to proceed accordingly. MIKEY
--- NOTE | 2016-09-14 12:41 | ECHOCARDIOGRAM REPORT ---
*NOTICE TO RECEIVING CONSTITUTION PARTY AGENCY This information is strictly Confidential and protected under [place] law. [place] law prohibits you from making any further disclosure of this information unless further disclosure is expressly permitted by the written consent of the person to whom it pertains or is authorized by law. A general authorization for the release of medical or other information is not sufficient for this purpose. Hospital accepts no responsibility if the information is made available to any other person, INCLUDING THE PATIENT. Interpretation Summary * Name: BLAS HUNT Study Date: 09/14/2016 09:38 AM BP: 115/78 mmHg * Patient [place] [place]\S\1 HR: 96 * : 1980 (M/d/yyyy) Gender: Male Height: 72 in * Age: 35 yrs Ethnicity: CA Weight: 181 lb * Ordering Physician: Zeinab Gotti * Referring Physician: Self, Referred * Performed By: Ruchi Hernandez [facility] * * Reason For Study: R/O ENDOCARDITIS * BSA: 2.0 m2 * -- Conclusions -- * 1. Normal left ventricular size and systolic function. EF 60-65%. No regional wall motion abnormalities. Mild concentric left ventricular hypertrophy. No significant diastolic dysfunction. * 2. No significant valvular abnormalities visualized. * 3. No visualized vegetation. * 4. No prior study available for comparison. Procedure Details * A complete two-dimensional transthoracic echocardiogram was performed (2D, M-mode, Doppler and color flow Doppler). Left Ventricle * The left ventricle is normal in size. * There is mild concentric left ventricular hypertrophy. * Ejection Fraction = 60-65%. * Left ventricular systolic function is normal. * No regional wall motion abnormalities noted. Right Ventricle * The right ventricle is normal in size and function. * The right ventricular systolic function is normal as assessed by tricuspid annular plane systolic excursion (TAPSE) (normal >1.5 cm). Atria * The left atrial size is normal. * Right atrial size is normal. * There is no evidence of atrial septal defect, but resolution does not allow assessment for a patent foramen ovale. Mitral Valve * The mitral valve leaflets appear normal. There is no evidence of stenosis, fluttering, or prolapse. * There is no mitral regurgitation noted. Tricuspid Valve * The tricuspid valve is not well visualized, but is grossly normal. * There is no tricuspid stenosis. * There is trace tricuspid regurgitation. Aortic Valve * The aortic valve is normal in structure and function. * No hemodynamically significant valvular aortic stenosis. * No aortic regurgitation is present. Pulmonic Valve * The pulmonary valve is inadequately visualized, but the Doppler data is adequate for interpretation. * There is no pulmonic valvular stenosis. * There is no significant pulmonary regurgitation. Great Vessels * The aortic root is normal size. * Normal pulmonary venous flow pattern. Pericardium/Pleural * There is no pericardial effusion. Great Vessels * Normal inferior vena cava size and collapsability with sniff indicates a normal right atrial pressure of 3 mmHg MMode 2D Measurements and Calculations IVSd 1.3 cm IVSs 1.7 cm LVIDd 3.9 cm LVIDs 2.0 cm LVPWd 1.2 cm LVPWs 1.4 cm IVS/LVPW 1.1 FS 48.7 % EDV(Teich) 65.1 ml ESV(Teich) 12.5 ml EF(Teich) 80.7 % EDV(cubed) 58.4 ml ESV(cubed) 7.9 ml EF(cubed) 86.5 % % IVS thick 25.8 % % LVPW thick 19.5 % LV mass(C)d 170.2 grams LV mass(C)dI 83.3 grams/m\S\2 LV mass(C)s 103.5 grams LV mass(C)sI 50.7 grams/m\S\2 SV(Teich) 52.5 ml SI(Teich) 25.7 ml/m\S\2 SV(cubed) 50.5 ml SI(cubed) 24.7 ml/m\S\2 Ao root diam 3.4 cm Ao root area 9.0 cm\S\2 LA dimension 3.2 cm LA/Ao 0.93 LVOT diam 2.2 cm LVOT area 3.7 cm\S\2 LVAd ap2 42.6 cm\S\2 LVLd ap2 9.1 cm EDV(MOD-sp2) 159.9 ml EDV(sp2-el) 170.1 ml LVAs ap2 23.4 cm\S\2 LVLs ap2 7.0 cm ESV(MOD-sp2) 67.0 ml ESV(sp2-el) 66.2 ml EF(MOD-sp2) 58.1 % EF(sp2-el) 61.1 % SV(MOD-sp2) 92.9 ml SI(MOD-sp2) 45.5 ml/m\S\2 SV(sp2-el) 103.9 ml SI(sp2-el) 50.9 ml/m\S\2 Doppler Measurements and Calculations MV E max simon 78.7 cm/sec MV A max simon 62.0 cm/sec MV E/A 1.3 MV P1/2t max simon 95.8 cm/sec MV P1/2t 64.9 msec MVA(P1/2t) 3.4 cm\S\2 MV dec slope 432.2 cm/sec\S\2 MV dec time 0.21 sec Ao V2 max 127.1 cm/sec Ao max PG 6.5 mmHg Ao max PG (full) 1.2 mmHg CARMELLA(V,A) 3.3 cm\S\2 CARMELLA(V,D) 3.3 cm\S\2 LV V1 max PG 5.3 mmHg LV V1 max 114.6 cm/sec TV E max simon 62.0 cm/sec PA V2 max 100.0 cm/sec PA max PG 4.0 mmHg
[2016-09-14] MEDS ORDERED: NICOTINE 14 MG/24 HR TDSY TD ONE (12:45)
[2016-09-14] MEDS: ONDANSETRON INJ 2 MG/ML 2 ML VIAL IV PRN (15:19)
[2016-09-14] MEDS ORDERED: FENTANYL CITRATE INJ 50 MCG/1 ML 2 ML VIAL ONE ×2 (16:04→16:40)
[2016-09-14] MEDS ORDERED: MIDAZOLAM HCL 1 MG/ML 2ML VIAL ONE (16:05)
[2016-09-14] MEDS ORDERED: PROPOFOL IV EMULSION 10 MG/ML 20 ML VIAL IV ONE (16:55)
--- NOTE | 2016-09-14 17:03 | [facility] Post Operative Brief Note ---
Immediate Operative Summary Operative Date September 14, 2016. Pre-Operative Diagnosis Left Forearm Abscess Post-Operative Diagnosis Left Forearm Abscess extention subfascially to upper arm Procedure(s) Performed Incision and Drainage Left Forearm and upper arm Abscess Surgeon Dr. Mckeon Restoration Ecologist Surgeon(s) none Estimated Blood Loss 25cc Findings abscess cavity inferior to cephalic vein tracking subfascially half way upper arm and upper third forearm Specimens Micro: #1: Left forearm abscess x2 Drains 1/2 plain packing
[2016-09-14] MEDS ORDERED: HYDROmorphone INJ 2 MG/ML SYR/VIAL ONE (17:09)
[2016-09-14] MEDS ORDERED: ATROPINE SULFATE 0.1 MG/ML 5ML SYR IV PRN (17:15)
[2016-09-14] MEDS ORDERED: NALOXONE HCL 0.4 MG/1 ML VIAL/CARP IV PRN (17:15)
[2016-09-14] MEDS ORDERED: LABETALOL HCL IV 5 MG/ML 20ML IV PRN (17:15)
[2016-09-14] MEDS ORDERED: EpHEDrine SULFATE INJ 50 MG/ML AMP IV PRN (17:15)
[2016-09-14] MEDS ORDERED: FLUMAZENIL 0.1 MG/1 ML 10 ML VIAL IV PRN (17:15)
[2016-09-14] MEDS ORDERED: ONDANSETRON INJ 2 MG/ML 2 ML VIAL IV PRN (17:15)
[2016-09-14] MEDS ORDERED: HYDROmorphone INJ 1 MG/ML SYR IV PRN (17:15)
[2016-09-14] MEDS ORDERED: PROMETHAZINE HCL INJ 12.5 MG in SODIUM CHLORIDE 0.9% 50ML 50 ML IV PRN (17:15)
[2016-09-14] MEDS ORDERED: KETOROLAC TROMETHAMINE 30 MG/ML VIAL ONE (17:47)
[2016-09-14] MEDS ORDERED: KETOROLAC TROMETHAMINE 30 MG/ML VIAL IV STA (17:49)
--- NOTE | 2016-09-14 17:50 | Anesthesiology Progress Note ---
Anesthesia Post Op Note Date & Time September 14, 2016 at 17:50 Vital Signs Pain Intensity: 10 Vital Signs Past 12 Hours Date Time Temp Pulse Resp B/P Pulse Ox O2 Delivery O2 Flow Rate FiO2 09/14/16 17:30 95 16 128/82 97 Room Air 09/14/16 17:20 94 16 125/86 99 Room Air 09/14/16 17:10 95 16 114/88 96 Room Air 09/14/16 17:00 36.5 90 16 134/89 96 Room Air 09/14/16 15:17 37.3 90 18 131/83 99 Room Air 09/14/16 13:59 91 121/81 09/14/16 10:59 37.2 09/14/16 07:50 Room Air 09/14/16 07:01 37.6 104 20 115/78 98 Room Air Notes Mental Status: alert / awake / arousable, participated in evaluation Pt Amnestic to Procedure: Yes Nausea / Vomiting: adequately controlled Pain: adequately controlled Airway Patency, RR, SpO2: stable & adequate BP & HR: stable & adequate Hydration State: stable & adequate Anesthetic Complications: no major complications apparent
[2016-09-14] MEDS: CEFTRIAXONE SOD INJ 1 GM in DEXTROSE 5% ADD-VANTAGE 50ML 50 ML IV SCH (18:52)
--- NOTE | 2016-09-14 20:32 | OPERATIVE REPORT ---
DATE OF OPERATION: 09/14/2016 SURGEON: MD Merrill. PREOPERATIVE DIAGNOSIS: Abscess, 09/14/2016 left forearm with cellulitis left upper arm. POSTOPERATIVE DIAGNOSIS: Abscess and inflammatory process extending from the upper third of the left forearm to the distal one-third of the left upper arm. SUMMARY: The patient was brought into the operating room. Under LMA anesthesia, the left arm was prepped after we took the packing that was placed by the ER physicians and properly draped. The packing was just inferior to the antecubital fossa where it was about 0.5 cm in size. It was about 3-4 inches of packing which was a quarter inch removed. At this point, I expressed the area since there was quite a bit of edema in the left upper arm I did not see anything significant, substance or clear fluid. I placed a hemostat along the tract which traveled towards the antecubital fossa more in the lateral aspect, opened the skin to the subcutaneous tissue. Bleeding was controlled by cautery and once we were in this area, we could identify that this track and even the packing was actually subfascially. We then extended more cephalad since there seemed to be track on the lateral aspect of the upper forearm and the lower upper arm and once we opened the fascia above the antecubital fossa, we were met with a pocket of significant whitish purulent drainage quite under pressure. I had to place the hemostat and delineate that this was subfascially along what appeared to be likely where the course of the cephalic vein was. We opened that up to the upper arm, the skin and subcutaneous tissue, I placed a finger where the pocket was delineated completely. We had extended the incision from the left forearm up to the left upper arm in a Z-fashion extending probably about 6-8 inches. Of note, also there was some purulence appreciated intramuscularly though we did not debride this. There was not significant muscle necrosis. We irrigated copiously. Once I had accomplished this, I always looked to the forearm. There was no evidence of any extension in to the fascial planes or distally in a compartment type fashion. Seems like this was all localized and debrided. Once we explored the area further subcutaneously, there were no other pockets identified. At this point, once we controlled most of hemostasis with electrocautery, I packed the area with half inch plain gauze tight, wrapped it with an ABD, Kerlix and an Devonte wrap. Cultures were taken once we entered up the large cavity in the lower upper arm and sent for aerobes and anaerobes. The procedure was tolerated well by the patient. Estimated blood loss approximately 25 mL. The patient was taken to recovery room in good condition. I attest to the content of the Intraoperative Record and any orders documented therein. Any exceptio ns are noted below.
[2016-09-15] MEDS: HYDROmorphone INJ 1 MG/ML SYR IV PRN ×10 (00:28→21:45)
[2016-09-15] MEDS: ONDANSETRON INJ 2 MG/ML 2 ML VIAL IV PRN ×3 (03:04→16:46)
[2016-09-15 03:44] VITALS: BP 125/71; PULSE 97; TEMP 37.3; O2SAT 95
[2016-09-15] MEDS ORDERED: VANCOMYCIN TROUGH SCH (05:30)
[2016-09-15] MEDS: VANCOMYCIN INJ 1,300 MG in SODIUM CHLORIDE 0.9% 250ML 250 ML IV SCH (05:43)
[2016-09-15 06:02] LABS: HEMATOCRIT 36.8 % (42-52); MEAN CELL VOLUME 89.5 fL (80-100); MEAN CORPUSCULAR HEMOGLOBIN 30.7 pg (25-34); MEAN CORPUSCULAR HGB CONC 34.2 g/dl (32-36); MEAN PLATELET VOLUME 9.3 fL (7.4-10.4); PLATELET COUNT 250 K/uL (130-400); RED BLOOD COUNT 4.11 M/uL (4.7-6.1); WHITE BLOOD COUNT 11.97 K/uL (4.8-10.8)
[2016-09-15 06:33] LABS: BLOOD UREA NITROGEN 8 mg/dl (7-18); BUN/CREATININE RATIO 13.4 (10-20); CALCIUM 7.8 mg/dl (8.5-10.1); CARBON DIOXIDE 27 mmol/L (21-32); CHLORIDE 110 mmol/L (98-107); GLUCOSE 98 mg/dl (70-99); POTASSIUM 3.9 mmol/L (3.5-5.1); SODIUM 142 mmol/L (136-145)
[2016-09-15 07:20] VITALS: BP 116/74; PULSE 90; TEMP 37.2; O2SAT 97
[2016-09-15] MEDS: METOPROLOL TARTRATE 25 MG TAB PO SCH ×2 (07:51→14:00)
[2016-09-15] MEDS: NICOTINE 14 MG/24 HR TDSY TD SCH (07:52)
--- NOTE | 2016-09-15 09:07 | Pharmacy Progress Note ---
Pharmacy Antibiotic Prog Note Date of Service September 15, 2016. Subjective The patient is currently receiving Vancomycin 1300 mg (~16 mg/kg) IV every 8 hours. The patient is currently on day # 3 of Vancomycin/Ceftriaxone IV therapy. Objective Height (Feet): 6 Height (Inches): 0.00 Weight (Kilograms): 82.400 Levels: Item Value Date Time Vancomycin Level Trough 9.5 mcg/ml 09/15/16 0539 Lab Results (24hrs): Test 09/15/16 05:39 White Blood Count 11.97 K/uL (4.8-10.8) Red Blood Count 4.11 M/uL (4.7-6.1) Hemoglobin 12.6 g/dL (14.0-18.0) Hematocrit 36.8 % (42-52) Mean Corpuscular Volume 89.5 fL (80-100) Mean Corpuscular Hemoglobin 30.7 pg (25-34) Mean Corpuscular Hemoglobin Concent 34.2 g/dl (32-36) RDW Standard Deviation 42.2 fL (36.4-46.3) RDW Coefficient of Variation 12.9 % (11.5-14.5) Platelet Count 250 K/uL (130-400) Mean Platelet Volume 9.3 fL (7.4-10.4) Sodium Level 142 mmol/L (136-145) Potassium Level 3.9 mmol/L (3.5-5.1) Chloride Level 110 mmol/L (98-107) Carbon Dioxide Level 27 mmol/L (21-32) Anion Gap 5.0 mmol/L (3-11) Blood Urea Nitrogen 8 mg/dl (7-18) Creatinine 0.60 mg/dl (0.60-1.40) Est Creatinine Clear Calc Drug Dose 190.4 ml/min Estimated GFR () > 150.0 Estimated GFR (Non- 131.2 BUN/Creatinine Ratio 13.4 (10-20) Random Glucose 98 mg/dl (70-99) Lactic Acid Level 0.8 mmol/L (0.4-2.0) Calcium Level 7.8 mg/dl (8.5-10.1) Procalcitonin 0.12 ng/ml (0-0.5) Vancomycin Level Trough 9.5 mcg/ml (SEE COMMENT) Micro Results: Item Value Date Time Blood Culture - Preliminary Resulted 09/13/16 1933 Blood NO GROWTH TO DATE. Blood Culture - Preliminary Resulted 09/13/16 1840 Blood NO GROWTH TO DATE. Gram Stain - Final Resulted 09/13/162014 Abscess Arm , Left Lower BETA HEMOLYTIC STREP GROUP F Gram Stain - Final Resulted 09/14/16 0000 Tissue Arm RUN DATE: 09/15/16 [facility] PAGE 1 RUN TIME: 37 Specimen Inquiry PATIENT: BLAS HUNT ARRON LOC: MARGARET U # : [id number] AGE/SX: 35/M ROOM: [facility] REG : 09/13/[address]: Tanya Cornejo M.D. : 1980 BED: 1 DIS : STATUS: ADM IN TLOC: SPEC #: [id number] CRISTIANE: 09/13/16-2014 STATUS: RES REQ #: [id number] RECD: 09/13/[address]: Chantell Gillette PA- C SOURCE: ABSCESS ENTR: 09/13/16-[address]: Nasir Gonzalez DO [facility]: [facility] APARICIO Roy ., M.D. Shannon, Dennis, M.D. ORDERED: DEP ANTONIO CUL/SMR COMMENTS: Has Specimen Been Obtained/Collected? Y Procedure Result Verified Site GRAM STAIN Final 09/14/16-799 RESULT MANY WBCs SEEN MANY GRAM POSITIVE COCCI MODERATE GRAM NEGATIVE BACILLI DEEP WOUND CULTURE Preliminary 09/15/16-835 Organism 1 BETA HEMOLYTIC STREP GROUP F QUANITY FEW SENS SENSITIVITY TO FOLLOW Recent Pertinent Medications Item Value Date Time Ceftriaxone 50 ml @ 100 mls/hr 09/14/16 1900 Sodium 1 gm/ Q24H/IV 09/14/16 1852 Dextrose Vancomycin HCl 276 ml @ 125 mls/hr 09/14/16 0600 1300 mg/Sodium Q8H/IV 09/15/16 0543 Chloride Vancomycin HCl 1 ea 09/13/162229 (Consult) UD PRN/N/A Assessment & Plan The patient is a 35 year old male admitted on September 13, 2016 at 21:21. Patient started on vancomycin and rocephin (not consult) for sepsis/cellulitis. BC x 2 are pending, arm abscess culture Beta hemolytic strep, Group F with sensitivities to follow. Of note, history of IV drug abuse. Renal function is stable. s/p I&D forearm site on 09/14/16. This Vancomycin trough drug level is: [X] Subtherapeutic Change to Vancomycin 1700 mg (20.6 mg/kg) IV every 8 hours. Approximately 30% dose increase should be adequate to approach therapeutic range Goal peak level estimate: between 30 - 40 mcg/mL. Goal trough level estimate: between 13 - 20 mcg/mL. Repeat Vancomycin trough level has been ordered for: September prior to the 0600 hours dose. Pharmacy will continue to follow and will adjust dose/frequency as necessary. Thank you
--- NOTE | 2016-09-15 11:51 | Surgery Progress Note ---
Surgery Progress Note Date of Service September 15, 2016. Subjective Post OP Day: 1 Patient sitting in bed- Reports pain and discomfort in left arm. He reports occasional nausea that accompanies the pain. Objective Vital Signs: Date Time Temp Pulse Resp B/P Pulse Ox O2 Delivery O2 Flow Rate FiO2 09/15/16 07:20 37.2 90 18 116/74 97 Room Air 09/15/16 07:20 Room Air 09/15/16 03:44 37.3 97 16 125/71 95 Room Air 09/15/16 00:30 Room Air 09/14/16 23:11 37.4 92 16 116/78 99 Room Air 09/14/16 21:08 37.3 103 18 107/61 96 Room Air 09/14/16 20:45 98 122/79 09/14/16 20:02 37.4 98 18 111/70 98 Room Air 09/14/16 19:00 37.0 100 16 118/75 97 Room Air 09/14/16 18:29 36.7 95 20 116/79 97 Room Air 09/14/16 18:22 Room Air 09/14/16 18:15 Room Air 09/14/16 18:00 37.5 96 20 125/80 94 Room Air 09/14/16 17:45 36.8 93 16 132/79 97 Room Air 09/14/16 17:30 95 16 128/82 97 Room Air 09/14/16 17:20 94 16 125/86 99 Room Air 09/14/16 17:10 95 16 114/88 96 Room Air 09/14/16 17:00 36.5 90 16 134/89 96 Room Air 09/14/16 15:17 37.3 90 18 131/83 99 Room Air 09/14/16 13:59 91 121/81 General Appearance: WD/WN, no apparent distress Head: normocephalic, atraumatic Incision(s): clean, dry, intact Laboratory Results: Results Past 24 Hours Test 09/15/16 05:39 Range/Units White Blood Count 11.97 4.8-10.8 K/uL Red Blood Count 4.11 4.7-6.1 M/uL Hemoglobin 12.6 14.0-18.0 g/dL Hematocrit 36.8 42-52 % Mean Corpuscular Volume 89.5 80-100 fL Mean Corpuscular Hemoglobin 30.7 25-34 pg Mean Corpuscular Hemoglobin Concent 34.2 32-36 g/dl RDW Standard Deviation 42.2 36.4-46.3 fL RDW Coefficient of Variation 12.9 11.5-14.5 % Platelet Count 250 130-400 K/uL Mean Platelet Volume 9.3 7.4-10.4 fL Sodium Level 142 136-145 mmol/L Potassium Level 3.9 3.5-5.1 mmol/L Chloride Level 110 98-107 mmol/L Carbon Dioxide Level 27 21-32 mmol/L Anion Gap 5.0 3-11 mmol/L Blood Urea Nitrogen 8 7-18 mg/dl Creatinine 0.60 0.60-1.40 mg/dl Est Creatinine Clear Calc Drug Dose 190.4 ml/min Estimated GFR () > 150.0 Estimated GFR (Non- 131.2 BUN/Creatinine Ratio 13.4 10-20 Random Glucose 98 70-99 mg/dl Lactic Acid Level 0.8 0.4-2.0 mmol/L Calcium Level 7.8 8.5-10.1 mg/dl Procalcitonin 0.12 0-0.5 ng/ml Vancomycin Level Trough 9.5 SEE COMMENT mcg/ml Assessment & Plan POD #1 s/p Incision and Drainage Left Forearm and upper arm Abscess. Goal- Pain control. Waiting for wound care consultation. Continue IV antibiotics. Vital signs stable. Patient is tolerating diet. Will continue to follow. regular diet
[2016-09-15] MEDS: MoRPHine SULFATE 4 MG/ML 1 ML CARP\\VIAL IV PRN (12:21)
[2016-09-15] MEDS: VANCOMYCIN INJ 1,700 MG in SODIUM CHLORIDE 0.9% 500ML 500 ML IV SCH ×2 (13:48→21:45)
[2016-09-15 14:17] VITALS: BP 112/74
--- NOTE | 2016-09-15 14:40 | Family Medicine Progress Note ---
Progress Note Date of Service September 15, 2016. Subjective Pt evaluation today including: conversation w/ patient, physical exam, chart review, lab review Pain: Arm pain, needing ongoing Dilaudid Voiding: no voiding problems, no incontinence Continues to have arm pain Requiring continuous Dilaudid Notes continued interest in pursuing rehabilitation vs Suboxone program No other issues overnight Constitutional: No chills, No fever Eyes: No discharge, No eye pain, No redness ENT: No nasal symptoms, No sore throat, No tinnitus Respiratory: No cough, No sputum, No wheezing Cardiovascular: No chest pain, No edema, No orthopnea, No palpitations Abdomen: No constipation, No diarrhea, No nausea, No pain, No vomiting Musculoskeletal: + problem reported (arm pain at site of cellulitis), No joint pain, No muscle pain Male : No dysuria, No incontinence, No urinary frequency Neurologic: No numbness/tingling, No vertigo, No weakness Psychiatric: + anxiety Heme: No clotting problems, No swollen lymph nodes Endo: No fatigue Skin: No color change, No new/changing skin lesions, No rash Medications Current Inpatient Medications Medications (Trade) Dose Ordered Sig/Marilee Route Start Time Stop Time Status Last Admin Dose Admin Acetaminophen (Tylenol Tab) 650 mg Q4H PRN PO 09/13/16 21:15 10/13/16 21:14 09/14/16 08:19 650 MG Ondansetron HCl 4 mg 4 mg Q6H PRN IV 09/13/16 21:15 10/13/16 21:14 09/15/16 09:18 4 MG Ceftriaxone Sodium/Dextrose (Rocephin Inj/ Dextrose Add-Johnson 50ML) 50 ml @ 100 mls/hr Q24H IV 09/14/16 19:00 09/23/16 18:59 09/14/16 18:52 100 MLS/HR Albuterol/ Ipratropium (Duoneb) 3 ml Q4R PRN INH 09/13/16 22:00 10/13/16 21:59 Vancomycin HCl (Consult) 1 ea UD PRN N/A 09/13/16 22:30 10/13/16 22:29 Metoprolol Tartrate 12.5 mg 12.5 mg TID PO 09/14/16 09:00 10/14/16 08:59 09/15/16 07:51 12.5 MG Lorazepam/Syringe (Ativan Inj/ Syringe) 1 ml @ 1 mls/min Q2H PRN IV 09/13/16 23:15 10/13/16 23:14 09/14/16 03:14 1 MLS/MIN Morphine Sulfate (MoRPHine SULFATE INJ) 4 mg Q2H PRN IV 09/14/16 05:15 09/28/16 05:14 09/15/16 12:21 4 MG Hydromorphone HCl (Dilaudid Inj) 1 mg Q2H PRN IV 09/14/16 04:45 09/28/16 04:44 09/15/16 14:04 1 MG Nicotine (Nicoderm Cq 14MG Patch) 1 patch QAM TD 09/15/16 09:00 10/15/16 08:59 Miscellaneous 1 ea 1 ea HS N/A 09/14/16 21:00 10/14/16 20:59 09/14/16 20:47 1 EA Vancomycin HCl/ Sodium Chloride (Vancomycin Inj/ Nss 500ml) 534 ml @ 200 mls/hr Q8@0600,1400,2200 IV 09/15/16 14:00 09/24/16 05:59 09/15/16 13:48 200 MLS/HR Objective Vital Signs Date Time Temp Pulse Resp B/P Pulse Ox O2 Delivery O2 Flow Rate FiO2 09/15/16 14:17 112/74 09/15/16 07:20 37.2 90 18 116/74 97 Room Air 09/15/16 07:20 Room Air 09/15/16 03:44 37.3 97 16 125/71 95 Room Air 09/15/16 00:30 Room Air 09/14/16 23:11 37.4 92 16 116/78 99 Room Air 09/14/16 21:08 37.3 103 18 107/61 96 Room Air 09/14/16 20:45 98 122/79 09/14/16 20:02 37.4 98 18 111/70 98 Room Air 09/14/16 19:00 37.0 100 16 118/75 97 Room Air 09/14/16 18:29 36.7 95 20 116/79 97 Room Air 09/14/16 18:22 Room Air 09/14/16 18:15 Room Air 09/14/16 18:00 37.5 96 20 125/80 94 Room Air 09/14/16 17:45 36.8 93 16 132/79 97 Room Air 09/14/16 17:30 95 16 128/82 97 Room Air 09/14/16 17:20 94 16 125/86 99 Room Air 09/14/16 17:10 95 16 114/88 96 Room Air 09/14/16 17:00 36.5 90 16 134/89 96 Room Air 09/14/16 15:17 37.3 90 18 131/83 99 Room Air Physical Exam General Appearance: WD/WN, no apparent distress Eyes: normal inspection, EOMI ENT: normal ENT inspection, hearing grossly normal, pharynx normal Neck: supple, no adenopathy, no JVD Respiratory/Chest: + pertinent finding (coarse breath sounds on smoking background, no respiratory distress) Cardiovascular: regular rate, rhythm, no gallop, no murmur Abdomen: normal bowel sounds, non tender, soft Extremities: + pertinent finding (incision site banadaged, stable edema to arm , normal pulses) Neurologic/Psychiatric: alert, normal mood/affect, oriented x 3 Skin: normal color, warm/dry, no rash Lymphatic: no adenopathy Laboratory Results Last 24 Hours Test 09/15/16 05:39 White Blood Count 11.97 K/uL Red Blood Count 4.11 M/uL Hemoglobin 12.6 g/dL Hematocrit 36.8 % Mean Corpuscular Volume 89.5 fL Mean Corpuscular Hemoglobin 30.7 pg Mean Corpuscular Hemoglobin Concent 34.2 g/dl RDW Standard Deviation 42.2 fL RDW Coefficient of Variation 12.9 % Platelet Count 250 K/uL Mean Platelet Volume 9.3 fL Sodium Level 142 mmol/L Potassium Level 3.9 mmol/L Chloride Level 110 mmol/L Carbon Dioxide Level 27 mmol/L Anion Gap 5.0 mmol/L Blood Urea Nitrogen 8 mg/dl Creatinine 0.60 mg/dl Est Creatinine Clear Calc Drug Dose 190.4 ml/min Estimated GFR () > 150.0 Estimated GFR (Non- 131.2 BUN/Creatinine Ratio 13.4 Random Glucose 98 mg/dl Lactic Acid Level 0.8 mmol/L Calcium Level 7.8 mg/dl Procalcitonin 0.12 ng/ml Vancomycin Level Trough 9.5 mcg/ml Assessment and Plan This is a 35 year old male day 1 s/p I&D for purulent cellulitis Patient has also expressed desire to stop heroine use. Our plan for him is as follows: Sepsis secondary to left forearm cellulitis - Day 1 s/p I&D for incision and drainage - Afebrile overnight; still borderline tachycardia - Lactate and pro-calcitonin normalized; WBC improved to 11 today - Intra-operative wound cultures positive for gram positive cocci - Wound cultures also positive for Group F strep - Blood cultures pending - Continue Rocephin and Vancomycin until speciation/sensitivities - Resume diet; discontinued IVF - Have added Percocet 5-10/325 q4h PRN for pain to reduce need for breakthrough IV opioids Coarse breath sounds; tobacco abuser - Bilateral wheezing, has been stable since admission suspected to be baseline due to extensive smoking history - No evidence of respiratory distress or hypoxia - Wound benefit from smoking cessation counselling - Nicotine patch Heroin Abuser - Continue Ativan PRN - Metoprolol D/C as BPs have been stable and he is not on BP meds at home - Hep C screen positive --> confirmatory testing is pending - HIV negative - [employer] Consulted for resources and to determine what options are available to him DVT Prophylaxis - SCD - Hold pharmacological anticoagulation as patient is for surgery today Disposition - Med/Surg Continued [facility] stay due to: multiple IV medications needed Discharge planning: home Reviewed: Pt Seen/Exam by Me History left arm feeling better but still with pain Constitutional: denies: fever Respiratory: negative: short of breath Cardiovascular: denies chest pain General Appearance: mild distress Respiratory: no respiratory distress Cardiovascular: regular rate, rhythm Extremities: other Neurologic/Psychiatric: alert, oriented x 3 Assessment/Plan I have reviewed the medical record and performed a history and physical examination of this patient today. I have discussed the case with Dr. Holley. The above note reflects my findings, conclusions, and recommendations.
[2016-09-15] MEDS: OXYCODONE/ACETAMINOPHEN 5-325 TAB PO PRN ×2 (16:30→21:45)
[2016-09-15 16:34] VITALS: BP 124/77; PULSE 83; TEMP 37.1; O2SAT 99
[2016-09-15] MEDS: CEFTRIAXONE SOD INJ 1 GM in DEXTROSE 5% ADD-VANTAGE 50ML 50 ML IV SCH (19:22)
[2016-09-15] MEDS: LORAZEPAM INJ 1 MG in SYRINGE 0.5 ML IV PRN (21:46)
[2016-09-15 23:19] VITALS: BP 117/78; PULSE 82; TEMP 36.6; O2SAT 98
[2016-09-16] MEDS: HYDROmorphone INJ 1 MG/ML SYR IV PRN ×5 (00:43→20:15)
[2016-09-16] MEDS: LORAZEPAM INJ 1 MG in SYRINGE 0.5 ML IV PRN ×2 (02:03→14:27)
[2016-09-16] MEDS: OXYCODONE/ACETAMINOPHEN 5-325 TAB PO PRN (04:43)
[2016-09-16] MEDS: ONDANSETRON INJ 2 MG/ML 2 ML VIAL IV PRN ×2 (04:55→10:59)
[2016-09-16] MEDS: VANCOMYCIN INJ 1,700 MG in SODIUM CHLORIDE 0.9% 500ML 500 ML IV SCH ×3 (05:59→21:33)
[2016-09-16 08:05] VITALS: BP 130/90; PULSE 75; TEMP 36.7; O2SAT 99
[2016-09-16] MEDS: OXYCODONE/ACETAMINOPHEN 10/325MG TAB PO PRN ×4 (08:23→22:54)
[2016-09-16] MEDS: NICOTINE 14 MG/24 HR TDSY TD SCH (08:40)
[2016-09-16 09:07] LABS: MEAN CELL VOLUME 89.9 fL (80-100); MEAN CORPUSCULAR HEMOGLOBIN 30.4 pg (25-34); MEAN CORPUSCULAR HGB CONC 33.8 g/dl (32-36); MEAN PLATELET VOLUME 9.6 fL (7.4-10.4); PLATELET COUNT 260 K/uL (130-400); RED BLOOD COUNT 4.34 M/uL (4.7-6.1); WHITE BLOOD COUNT 7.63 K/uL (4.8-10.8)
--- NOTE | 2016-09-16 09:39 | Surgery Progress Note ---
Surgery Progress Note Date of Service September 16, 2016. Subjective Post OP Day: 2 Patient reports that he is still experiencing pain and discomfort in arm. Denies fever or chills. Denies nausea or vomiting. Patient is tolerating diet. Objective Vital Signs: Date Time Temp Pulse Resp B/P Pulse Ox O2 Delivery O2 Flow Rate FiO2 09/16/16 00:45 Room Air 09/15/16 23:19 36.6 82 16 117/78 98 Room Air 09/15/16 16:34 37.1 83 18 124/77 99 Room Air 09/15/16 16:30 Room Air 09/15/16 14:17 112/74 General Appearance: WD/WN, no apparent distress Respiratory/Chest: no respiratory distress, no accessory muscle use Incision(s): intact, findings (dressing in place on examination. ) Extremities: + pertinent finding (pulses present on exam. ) Laboratory Results: Results Past 24 Hours Test 09/16/16 04:44 Range/Units Assessment & Plan POD #2 s/p Incision and Drainage Left Forearm and upper arm Abscess. Patient afebrile. No issues overnight. Family Medicine added Percocet for breakthrough pain- patient is still using Dilaudid regularly. Reports tiny improvement in pain. Will consult pain management- Dr. Momin to speak with Dr. Tellez. Wound care was to see patient yesterday- patient was unable to tolerate exam for wound vac. Will continue to defer to wound care for wound management. Patient intends to go to Rehab after discharge- waiting for evaluation today. Dr. Momin in to see and examine patient. POD #1 s/p Incision and Drainage Left Forearm and upper arm Abscess. Goal- Pain control. Waiting for wound care consultation. Continue IV antibiotics. Vital signs stable. Patient is tolerating diet. Will continue to follow. POD #1 s/p Incision and Drainage Left Forearm and upper arm Abscess. Goal- Pain control. Waiting for wound care consultation. Continue IV antibiotics. Vital signs stable. Patient is tolerating diet. Will continue to follow.
[2016-09-16 09:43] LABS: CALCIUM 8.5 mg/dl (8.5-10.1)
[2016-09-16 09:45] LABS: BUN/CREATININE RATIO 17.1 (10-20); CREATININE 0.8 mg/dl (0.60-1.40); POTASSIUM 3.7 mmol/L (3.5-5.1)
[2016-09-16] MEDS: MoRPHine SULFATE 4 MG/ML 1 ML CARP\\VIAL IV PRN ×3 (13:51→21:41)
--- NOTE | 2016-09-16 14:04 | Family Medicine Progress Note ---
Progress Note Date of Service September 16, 2016. Subjective Pt evaluation today including: conversation w/ patient, physical exam, chart review, lab review Pain: Controlled but requiring dilaudid continuously PO Intake: Good Voiding: no voiding problems Arm feeling better, rendess improving No acute issues overnight Patient concerned about getting adequate pain control with Percocet Additional Comments: A 10 point review of systems was negative unless stated above. All Other Systems: Reviewed and Negative Medications Current Inpatient Medications Medications (Trade) Dose Ordered Sig/Marilee Route Start Time Stop Time Status Last Admin Dose Admin Acetaminophen (Tylenol Tab) 650 mg Q4H PRN PO 09/13/16 21:15 10/13/16 21:14 09/14/16 08:19 650 MG Ondansetron HCl 4 mg 4 mg Q6H PRN IV 09/13/16 21:15 10/13/16 21:14 09/16/16 10:59 4 MG Ceftriaxone Sodium/Dextrose (Rocephin Inj/ Dextrose Add-Jud 50ML) 50 ml @ 100 mls/hr Q24H IV 09/14/16 19:00 09/23/16 18:59 09/15/16 19:22 100 MLS/HR Albuterol/ Ipratropium (Duoneb) 3 ml Q4R PRN INH 09/13/16 22:00 10/13/16 21:59 Vancomycin HCl (Consult) 1 ea UD PRN N/A 09/13/16 22:30 10/13/16 22:29 Metoprolol Tartrate 12.5 mg 12.5 mg TID PO 09/14/16 09:00 10/14/16 08:59 Future Hold 09/15/16 07:51 12.5 MG Lorazepam/Syringe (Ativan Inj/ Syringe) 1 ml @ 1 mls/min Q2H PRN IV 09/13/16 23:15 10/13/16 23:14 09/16/16 02:03 1 MLS/MIN Morphine Sulfate (MoRPHine SULFATE INJ) 4 mg Q2H PRN IV 09/14/16 05:15 09/28/16 05:14 09/16/16 13:51 4 MG Nicotine (Nicoderm Cq 14MG Patch) 1 patch QAM TD 09/15/16 09:00 10/15/16 08:59 Miscellaneous 1 ea 1 ea HS N/A 09/14/16 21:00 10/14/16 20:59 09/14/16 20:47 1 EA Vancomycin HCl/ Sodium Chloride (Vancomycin Inj/ Nss 500ml) 534 ml @ 200 mls/hr Q8@0600,1400,2200 IV 09/15/16 14:00 09/24/16 05:59 09/16/16 05:59 200 MLS/HR Oxycodone/ Acetaminophen (Percocet 5-325mg Tab) 1 tab Q4H PRN PO 09/15/16 14:30 09/29/16 14:29 09/16/16 04:43 1 TAB Oxycodone/ Acetaminophen (Percocet 10-325MG Tab) 1 tab Q4H PRN PO 09/15/16 14:30 09/29/16 14:29 09/16/16 13:02 1 TAB Hydromorphone HCl (Dilaudid Inj) 1 mg Q4H PRN IV 09/16/16 07:05 09/30/16 07:04 09/16/16 10:45 1 MG Objective Vital Signs Date Time Temp Pulse Resp B/P Pulse Ox O2 Delivery O2 Flow Rate FiO2 09/16/16 08:05 36.7 75 18 130/90 99 Room Air 09/16/16 07:30 Room Air 09/16/16 00:45 Room Air 09/15/16 23:19 36.6 82 16 117/78 98 Room Air 09/15/16 16:34 37.1 83 18 124/77 99 Room Air 09/15/16 16:30 Room Air 09/15/16 14:17 112/74 Physical Exam General Appearance: WD/WN, no apparent distress Eyes: normal inspection, EOMI ENT: normal ENT inspection, hearing grossly normal, pharynx normal Neck: supple, no adenopathy, no JVD Respiratory/Chest: lungs clear, no respiratory distress Cardiovascular: regular rate, rhythm, no gallop, no murmur Abdomen: normal bowel sounds, soft Extremities: non-tender, normal inspection, no pedal edema, + pertinent finding (left arm; incision site clean with some drainage, well bandaged; erythema regressing from marked area) Neurologic/Psychiatric: alert, normal mood/affect, oriented x 3 Skin: normal color, warm/dry, no rash Laboratory Results Last 24 Hours Test 09/16/16 08:19 White Blood Count 7.63 K/uL Red Blood Count 4.34 M/uL Hemoglobin 13.2 g/dL Hematocrit 39.0 % Mean Corpuscular Volume 89.9 fL Mean Corpuscular Hemoglobin 30.4 pg Mean Corpuscular Hemoglobin Concent 33.8 g/dl RDW Standard Deviation 42.1 fL RDW Coefficient of Variation 12.8 % Platelet Count 260 K/uL Mean Platelet Volume 9.6 fL Sodium Level 142 mmol/L Potassium Level 3.7 mmol/L Chloride Level 106 mmol/L Carbon Dioxide Level 27 mmol/L Anion Gap 9.0 mmol/L Blood Urea Nitrogen 14 mg/dl Creatinine 0.80 mg/dl Est Creatinine Clear Calc Drug Dose 142.8 ml/min Estimated GFR () 135.1 Estimated GFR (Non- 116.6 BUN/Creatinine Ratio 17.1 Random Glucose 81 mg/dl Calcium Level 8.5 mg/dl Assessment and Plan This is a 35 year old male day 2 s/p I&D for purulent cellulitis Doing well at this time, trying to titrated pain med to balance pain control with ongoing opioid dependence Our plan for him is as follows: Sepsis secondary to left forearm cellulitis - Day 2 s/p I&D for incision and drainage - Afebrile overnight; HR stabilized - WBC improved to 7 - Surgical recommendations appreciated - Awaiting wound care recommendations - Intra-operative Wound culture growing strep species - Abscess cultures polymicrobial with including Staph Aureus; sensitivities pending - Needs to continue Vancomycin and Rocephin Sensitivities on Staph Aureus pending - Blood cultures negative to date - Percocet 5-10/325 q4h PRN for pain to reduce need for breakthrough IV opioids Spaced Dilaudid to q 4 hours Coarse breath sounds; tobacco abuser - Bilateral wheezing, has been stable since admission suspected to be baseline due to extensive smoking history - No evidence of respiratory distress or hypoxia - Smoking cessation and nicotine patch Intravenous Opioid Abuser - Continue Ativan PRN - Hep C screen positive --> confirmatory testing is pending - HIV negative - Echo negative for valvular pathology - Awaiting evaluation for possible inpatient rehabilitation placement directly from [facility] DVT Prophylaxis - SCD - Hold pharmacological anticoagulation as patient is for surgery today Disposition - Med/Surg Continued [facility] stay due to: multiple IV medications needed Discharge planning: uncertain History left arm continuing to feel better Constitutional: denies: fever Respiratory: negative: short of breath Cardiovascular: denies chest pain General Appearance: no apparent distress Respiratory: no respiratory distress Extremities: other (left forearm - open wound with drainage. ) Neurologic/Psychiatric: alert, oriented x 3 Assessment/Plan I have reviewed the medical record and performed a history and physical examination of this patient today. I have discussed the case with Dr. Holley. The above note reflects my findings, conclusions, and recommendations.
[2016-09-16 15:26] VITALS: BP 124/80; PULSE 87; TEMP 36.9; O2SAT 97
[2016-09-16 15:52] LABS: HEPATITIS C VIRAL RNA(LOG) PCR 6.1 LOG IU/ML (<1.18)
[2016-09-16 16:00] VITALS: O2SAT 97
[2016-09-16] MEDS: METRONIDAZOLE / NSS 500 MG in PREMIXED NSS 100 ML IV SCH ×2 (18:12→23:21)
[2016-09-16] MEDS: CEFTRIAXONE SOD INJ 1 GM in DEXTROSE 5% ADD-VANTAGE 50ML 50 ML IV SCH (19:17)
[2016-09-16 23:00] VITALS: BP 133/81; PULSE 85; TEMP 36.7; O2SAT 99
[2016-09-17] MEDS: HYDROmorphone INJ 1 MG/ML SYR IV PRN ×4 (00:41→23:06)
[2016-09-17] MEDS: OXYCODONE/ACETAMINOPHEN 10/325MG TAB PO PRN (03:55)
[2016-09-17] MEDS: LORAZEPAM INJ 1 MG in SYRINGE 0.5 ML IV PRN (04:13)
[2016-09-17] MEDS ORDERED: VANCOMYCIN TROUGH SCH (05:30)
[2016-09-17] MEDS: VANCOMYCIN INJ 1,700 MG in SODIUM CHLORIDE 0.9% 500ML 500 ML IV SCH (05:44)
[2016-09-17 06:18] LABS: HEMATOCRIT 34.7 % (42-52); MEAN CELL VOLUME 88.3 fL (80-100); MEAN CORPUSCULAR HEMOGLOBIN 30.8 pg (25-34); MEAN CORPUSCULAR HGB CONC 34.9 g/dl (32-36); MEAN PLATELET VOLUME 9.2 fL (7.4-10.4); PLATELET COUNT 282 K/uL (130-400); RED BLOOD COUNT 3.93 M/uL (4.7-6.1); WHITE BLOOD COUNT 6.74 K/uL (4.8-10.8)
[2016-09-17 07:00] LABS: BUN/CREATININE RATIO 14.4 (10-20); CALCIUM 8.3 mg/dl (8.5-10.1); CREATININE 0.79 mg/dl (0.60-1.40); POTASSIUM 3.7 mmol/L (3.5-5.1)
[2016-09-17 07:07] LABS: PREALBUMIN 10.9 mg/dl (20-40)
[2016-09-17 07:21] LABS: ALKALINE PHOSPHATASE 100 U/L (45-117); ALT/SGPT 352 U/L (12-78); AST/SGOT 184 U/L (15-37)
--- NOTE | 2016-09-17 07:55 | SURGERY PROGRESS NOTE ---
DATE: 09/17/2016 Milton is 3rd postoperative day status post incision and drainage of a left forearm abscess. His pain is much improved this morning. VAC system is in place. The left upper arm is less edematous than it had been. There is no cellulitis. He has good left hand circulation man. No numbness. His last vitals showed a temperature of 36.7, pulse 85, respirations 16, blood pressure 133/81, O2 sats 99 on room air. LABORATORY DATA: His white count is 6.74, hemoglobin was 12.1. From my point of view, the patient can be discharged at the discretion of the primary service. I certainly would keep him on some p.o. antibiotics for another week, broad spectrum, to cover the polymicrobial contents. We will be glad to see him in our office in approximately a week or so, sooner if there is any problem. He is instructed to follow up with the wound clinic.
[2016-09-17] MEDS ORDERED: OXYCODONE HCL IR 5 MG TAB (IMMEDIATE RELEASE) PO PRN (08:00)
[2016-09-17] MEDS ORDERED: OXYCODONE HCL IR 5 MG TAB (IMMEDIATE RELEASE) PO SCH (08:00)
--- NOTE | 2016-09-17 08:00 | Surgery Progress Note ---
Surgery Progress Note Date of Service Sep 17, 2016. Subjective Post OP Day: 3 Patient in bed- reports that pain may slightly be improving. Wound vac in place. Patient is tolerating diet. Denies nausea or vomiting. Denies fever or chills. No concerns overnight. Objective Vital Signs: Date Time Temp Pulse Resp B/P (MAP) Pulse Ox O2 Delivery O2 Flow Rate FiO2 09/16/16 23:00 36.7 85 16 133/81 (98) 99 Room Air 09/16/16 19:15 Room Air 09/16/16 16:00 97 Room Air 09/16/16 15:26 36.9 87 16 124/80 (95) 97 Room Air 09/16/16 08:05 36.7 75 18 130/90 (103) 99 Room Air General Appearance: WD/WN, no apparent distress Incision(s): clean, dry, intact Laboratory Results: Results Past 24 Hours Test 09/16/16 08:19 09/17/16 05:37 Range/Units White Blood Count 7.63 6.74 4.8-10.8 K/uL Red Blood Count 4.34 3.93 4.7-6.1 M/uL Hemoglobin 13.2 12.1 14.0-18.0 g/dL Hematocrit 39.0 34.7 42-52 % Mean Corpuscular Volume 89.9 88.3 80-100 fL Mean Corpuscular Hemoglobin 30.4 30.8 25-34 pg Mean Corpuscular Hemoglobin Concent 33.8 34.9 32-36 g/dl RDW Standard Deviation 42.1 40.8 36.4-46.3 fL RDW Coefficient of Variation 12.8 12.5 11.5-14.5 % Platelet Count 260 282 130-400 K/uL Mean Platelet Volume 9.6 9.2 7.4-10.4 fL Sodium Level 142 144 136-145 mmol/L Potassium Level 3.7 3.7 3.5-5.1 mmol/L Chloride Level 106 109 98-107 mmol/L Carbon Dioxide Level 27 29 21-32 mmol/L Anion Gap 9.0 6.0 3-11 mmol/L Blood Urea Nitrogen 14 11 7-18 mg/dl Creatinine 0.80 0.79 0.60-1.40 mg/dl Est Creatinine Clear Calc Drug Dose 142.8 144.6 ml/min Estimated GFR () 135.1 135.8 Estimated GFR (Non- 116.6 117.2 BUN/Creatinine Ratio 17.1 14.4 10-20 Random Glucose 81 109 70-99 mg/dl Calcium Level 8.5 8.3 8.5-10.1 mg/dl Total Bilirubin 0.2 0.2-1 mg/dl Direct Bilirubin < 0.1 0-0.2 mg/dl Aspartate Amino Transf (AST/SGOT) 184 15-37 U/L Alanine Aminotransferase (ALT/SGPT) 352 12-78 U/L Alkaline Phosphatase 100 45-117 U/L Total Protein 6.2 6.4-8.2 gm/dl Albumin 2.3 3.4-5.0 gm/dl Prealbumin 10.9 20-40 mg/dl Vancomycin Level Trough 19.4 SEE COMMENT mcg/ml Assessment & Plan POD #3 s/p Incision and Drainage Left Forearm and upper arm Abscess. Patient afebrile. Pain slowly improving. Wound vac in place- patient is followed by wound care. Patient to go to outpatient rehab- unable to go to inpatient rehab with wound vac in place. From a surgical standpoint patient is doing well- will sign off on his care. Patient is to follow-up with Dr. Momin in the office in 1 week after discharge. Please contact us with any questions or concerns. POD #2 s/p Incision and Drainage Left Forearm and upper arm Abscess. Patient afebrile. No issues overnight. Family Medicine added Percocet for breakthrough pain- patient is still using Dilaudid regularly. Reports tiny improvement in pain. Will consult pain management- Dr. Momin to speak with Dr. Tellez. Wound care was to see patient yesterday- patient was unable to tolerate exam for wound vac. Will continue to defer to wound care for wound management. Patient intends to go to Rehab after discharge- waiting for evaluation today. Dr. Momin in to see and examine patient. POD #1 s/p Incision and Drainage Left Forearm and upper arm Abscess. Goal- Pain control. Waiting for wound care consultation. Continue IV antibiotics. Vital signs stable. Patient is tolerating diet. Will continue to follow. POD #1 s/p Incision and Drainage Left Forearm and upper arm Abscess. Goal- Pain control. Waiting for wound care consultation. Continue IV antibiotics. Vital signs stable. Patient is tolerating diet. Will continue to follow.
[2016-09-17 08:03] VITALS: BP 133/90; PULSE 81; TEMP 36.7; O2SAT 97
[2016-09-17] MEDS: METRONIDAZOLE / NSS 500 MG in PREMIXED NSS 100 ML IV SCH ×3 (08:52→23:49)
[2016-09-17] MEDS: NICOTINE 14 MG/24 HR TDSY TD SCH (08:52)
--- NOTE | 2016-09-17 09:22 | Pain Management Consultation ---
Pain Management Consultation Date of Consultation Sep 17, 2016. Reason for Consultation Left arm pain History Mr. Sen is a 35 year old white male that has been seen at the [facility] for a left arm abscess and cellulitis. He did require I&D and has a wound vac in place. Patient was injecting heroin and "missed" the vein. He has been any IV drug user for several years and has been using approximately 10 bags of heroin daily. He does report 8/10 pain in the left forearm. He has been using IV Dilaudid, IV Morphine, and Percocet with mild pain relief. He does report anxiety being discharged to home and abusing heroin again. He is interested in a rehab facility or Suboxone/methadone program. Patient denies any side effects from the medications. Not experiencing withdrawal symptoms at this time. He denies any current fevers, chills. Case discussed with Dr. Tellez Past Medical: N/A Past Surgical: N/A Family History No significant family history Social / Work History Smokeless Tobacco Use: No Marital Status: single Housing Status: lives with family (lives with parents) Allergies Coded Allergies: Penicillins (Unverified Allergy, Mild, 09/13/16) Medications Current Inpatient Medications Medications (Trade) Dose Ordered Sig/Marilee Route Start Time Stop Time Status Last Admin Dose Admin Acetaminophen (Tylenol Tab) 650 mg Q4H PRN PO 09/13/16 21:15 10/13/16 21:14 09/14/16 08:19 650 MG Ondansetron HCl (Zofran Inj) 4 mg Q6H PRN IV 09/13/16 21:15 10/13/16 21:14 09/16/16 10:59 4 MG Ceftriaxone Sodium 1 gm/ Dextrose 50 ml @ 100 mls/hr Q24H IV 09/14/16 19:00 09/23/16 18:59 09/16/16 19:17 100 MLS/HR Albuterol/ Ipratropium (Duoneb) 3 ml Q4R PRN INH 09/13/16 22:00 10/13/16 21:59 Vancomycin HCl (Consult) 1 ea UD PRN N/A 09/13/16 22:30 10/13/16 22:29 Metoprolol Tartrate (Lopressor Tab) 12.5 mg TID PO 09/14/16 09:00 10/14/16 08:59 Future Hold 09/15/16 07:51 12.5 MG Lorazepam 1 mg/ Syringe 1 ml @ 1 mls/min Q2H PRN IV 09/13/16 23:15 10/13/16 23:14 09/17/16 04:13 1 MLS/MIN Nicotine (Nicoderm Cq 14MG Patch) 1 patch QAM TD 09/15/16 09:00 10/15/16 08:59 Miscellaneous (Remove Nicoderm Patch) 1 ea HS N/A 09/14/16 21:00 10/14/16 20:59 09/14/16 20:47 1 EA Vancomycin HCl 1700 mg/Sodium Chloride 534 ml @ 200 mls/hr Q8@0600,1400,2200 IV 09/15/16 14:00 09/24/16 05:59 Future Hold 09/17/16 05:44 200 MLS/HR Hydromorphone HCl (Dilaudid Inj) 1 mg Q4H PRN IV 09/16/16 07:05 09/30/16 07:04 09/17/16 05:45 1 MG Metronidazole 500 mg/Prmx 100 ml @ 100 mls/hr Q8H IV 09/16/16 16:00 09/26/16 15:59 09/17/16 08:52 100 MLS/HR Ketorolac Tromethamine (Toradol Inj) 30 mg Q6H PRN IV 09/17/16 08:45 09/22/16 08:44 Tapentadol (Nucynta Er Tab) 50 mg Q12 PO 09/17/16 09:00 10/17/16 08:59 Tapentadol (Nucynta Tab) 50 mg Q4H PRN PO 09/17/16 08:45 10/01/16 08:44 Review of Systems Denies complaints related to 10 point organ system review. Physical Exam Height & Weight: Height 6 feet, 0.00 inches. Weight 82.400 (Kilograms) 181 (Pounds) Last Vital Signs Documentation Date Time Temp Pulse Resp B/P (MAP) Pulse Ox O2 Delivery O2 Flow Rate FiO2 09/17/16 08:03 36.7 81 16 133/90 (104) 97 Room Air Exam: GENERAL: Mr. Sen is a 35 y/o white male that appears his stated age. Speech and cognition is intact. Mood and affect is appropriate. HEAD: Normocephalic; atraumatic. EYES: Pupils are round, equal, and reactive to light; EOM intact. ENT: No external ear discharge or lesions. No rhinorrhea or epistaxis. No mucosal lesions. CHEST: Regular chest respiration and excursion. EXTREMITIES: + wound vac on the left forearm. NEURO: CN II-XII grossly intact with no focal deficits noted. SKIN: No erythema or drainage noted. Laboratory Laboratory Results (Last CBC): 09/17/16 05:37 Imaging Radiology Findings Left forearm 09/13: Anterior soft tissue swelling. No radiopaque foreign bodies. [place] Drug Monitoring Program Search Results: patient reviewed within database, no issues identified ( Negative PDMP) Opioid Risk Assessment Risk assessment performed, high risk identified Assessment 1. Left forearm abscess requiring I&D and IV antibiotics 2. Heroin addiction Recommendations 1. Oxycodone and Morphine were discontinued 2. Patient was initiated on Nucynta ER 50mg BID and Nucynta 50mg IR x 4 hrs PRN pain 3. Recommend a rehab program for the patient. Methadone clinic would be preferable to Suboxone as Methadone may treat both pain and addiction. 4. Initiated Toradol 30mg IV x 6 hrs PRN 5. Will leave IV Dilaudid 1mg x 4 hrs PRN for any breakthrough pain. [employer] Voice Recognition This chart was completed in part utilizing [employer] Voice Recognition Software. Random word insertions, pronoun errors, and incomplete sentences are an occasional consequence of this system due to software limitations and ambient noise. Any questions or concerns about the content, text or information contained within the body of this dictation should be directly addressed to the provider for clarification.
[2016-09-17] MEDS: TAPENTADOL ER 50 MG TABCR PO SCH ×2 (09:39→21:23)
--- NOTE | 2016-09-17 10:54 | Medical Consult ---
Consultation Date of Consultation: Sep 17, 2016. Attending Physician: Tanya Cornejo M.D. Reason for Consultation: Left forearm abscess, New Hep C diagnosis History of Present Illness Patient is a 35-year-old male who presented to the emergency department with complaints of left arm pain and swelling. The patient is an IV drug abuser. He noted that a few days prior to admission, he had been attempting to inject into his left forearm but missed his vein. The patient states that this area gradually became red and warm to the touch. He also was very nauseated prior to admission add has been having sweats and chills. Since admission, the patient did have blood cultures which showed no growth to date so far. He had a wound culture of his left forearm which is growing group F strep, alpha strep , MSSA, yeast not Etelvina albicans, anaerobic Gram-negative bacilli, and gram- positive bacilli. The patient did have extensive I and D with debridement of the left forearm. He has a wound VAC in place currently. He was placed on IV metronidazole and ceftriaxone due to penicillin allergy. He did have a forearm x-ray on admission which showed anterior soft tissue swelling but no foreign body. The patient also had a hep C antibody completed which was positive. The patient states that he has never been tested for Hep C in the past. Past Medical/Surgical History Medical Problems: (1) Abscess of left forearm Status: Acute (2) Sepsis Status: Acute Medical Problems: (1) Cellulitis and abscess of upper arm and forearm (2) Sepsis affecting skin Family History No significant family history Noncontributory Social History Smoking Status: Current Every Day Smoker Smokeless Tobacco Use: No Drug Use: heroin, marijuana Marital Status: single Allergies Coded Allergies: Penicillins (Unverified Allergy, Mild, 09/13/16) Home Medications Reported Home Medications Medications Dose Route/Sig Max Daily Dose Days Date Category No Active Prescriptions or Reported Medications Rx Current Inpatient Medications Current Inpatient Medications Medications (Trade) Dose Ordered Sig/Marilee Route Start Time Stop Time Status Last Admin Dose Admin Acetaminophen (Tylenol Tab) 650 mg Q4H PRN PO 09/13/16 21:15 10/13/16 21:14 09/14/16 08:19 650 MG Ondansetron HCl (Zofran Inj) 4 mg Q6H PRN IV 09/13/16 21:15 10/13/16 21:14 09/16/16 10:59 4 MG Ceftriaxone Sodium 1 gm/ Dextrose 50 ml @ 100 mls/hr Q24H IV 09/14/16 19:00 09/23/16 18:59 09/16/16 19:17 100 MLS/HR Albuterol/ Ipratropium (Duoneb) 3 ml Q4R PRN INH 09/13/16 22:00 10/13/16 21:59 Vancomycin HCl (Consult) 1 ea UD PRN N/A 09/13/16 22:30 10/13/16 22:29 Metoprolol Tartrate (Lopressor Tab) 12.5 mg TID PO 09/14/16 09:00 10/14/16 08:59 Future Hold 09/15/16 07:51 12.5 MG Lorazepam 1 mg/ Syringe 1 ml @ 1 mls/min Q2H PRN IV 09/13/16 23:15 10/13/16 23:14 09/17/16 04:13 1 MLS/MIN Nicotine (Nicoderm Cq 14MG Patch) 1 patch QAM TD 09/15/16 09:00 10/15/16 08:59 Miscellaneous (Remove Nicoderm Patch) 1 ea HS N/A 09/14/16 21:00 10/14/16 20:59 09/14/16 20:47 1 EA Vancomycin HCl 1700 mg/Sodium Chloride 534 ml @ 200 mls/hr Q8@0600,1400,2200 IV 09/15/16 14:00 09/24/16 05:59 Future Hold 09/17/16 05:44 200 MLS/HR Hydromorphone HCl (Dilaudid Inj) 1 mg Q4H PRN IV 09/16/16 07:05 09/30/16 07:04 09/17/16 05:45 1 MG Metronidazole 500 mg/Prmx 100 ml @ 100 mls/hr Q8H IV 09/16/16 16:00 09/26/16 15:59 09/17/16 08:52 100 MLS/HR Ketorolac Tromethamine (Toradol Inj) 30 mg Q6H PRN IV 09/17/16 08:45 09/22/16 08:44 Tapentadol (Nucynta Er Tab) 50 mg Q12 PO 09/17/16 09:00 10/17/16 08:59 09/17/16 09:39 50 MG Tapentadol (Nucynta Tab) 50 mg Q4H PRN PO 09/17/16 08:45 10/01/16 08:44 Review of Systems Constitutional: + sweats, + weakness, + fatigue Eyes: + problem reported (denies icterus), No worsening of vision ENT: No hearing loss Respiratory: No cough, No shortness of breath Cardiovascular: No chest pain Abdomen: + problem reported (denies vincent colored stools), No pain, No vomiting , No diarrhea Musculoskeletal: + problem reported (pain in the left forearm/antecubital space ) Genitourinary - Male: No hematuria, No dysuria Integumentary: No rash, No itch, No new/changing skin lesions Physical Exam Date Time Temp Pulse Resp B/P (MAP) Pulse Ox O2 Delivery O2 Flow Rate FiO2 09/17/16 08:03 36.7 81 16 133/90 (104) 97 Room Air 09/17/16 07:35 Room Air 09/16/16 23:00 36.7 85 16 133/81 (98) 99 Room Air 09/16/16 19:15 Room Air 09/16/16 16:00 97 Room Air 09/16/16 15:26 36.9 87 16 124/80 (95) 97 Room Air General Appearance: WD/WN, + mild distress Head: normocephalic, atraumatic Eyes: normal inspection, sclerae normal ENT: hearing grossly normal Neck: supple, trachea midline Respiratory/Chest: chest non-tender, lungs clear, normal breath sounds, no respiratory distress, no accessory muscle use Cardiovascular: regular rate, rhythm, no murmur Abdomen/GI: normal bowel sounds, non tender, soft Back: normal inspection Extremities/Musculoskelatal: + pertinent finding (left antecubital wound vac in place. Tenderness of surrounding area. No surrounding erythema.) Neurologic/Psych: alert, normal mood/affect Skin: normal color, warm/dry, no rash Laboratory Results RUN DATE: 09/17/16 [facility] PAGE 1 RUN TIME: 1030 Specimen Inquiry PATIENT: BLAS HUNT LOC: MARGARET U # : [id number] AGE/SX: 35/M ROOM: [facility] REG : 09/13/[address]: Tanya Cornejo M.D. : 1980 BED: 1 DIS : STATUS: ADM IN TLOC: SPEC #: [id number] CRISTIANE: 09/13/16 STATUS: RES REQ #: [id number] RECD: 09/13/[address]: Chantell Gillette PA- C SOURCE: ABSCESS ENTR: 09/13/[address]: Nasir Gonzalez DO SPDESC: Ascencion APARICIO Roy ., M.D. Shannon, Dennis, M.D. ORDERED: DANIEL OWEN CUL/TAMMY COMMENTS: Has Specimen Been Obtained/Collected? Y Procedure Result Verified Site GRAM STAIN Final 09/14/16 RESULT MANY WBCs SEEN MANY GRAM POSITIVE COCCI MODERATE GRAM NEGATIVE BACILLI DEEP WOUND CULTURE Preliminary 09/17/16 Organism 1 BETA HEMOLYTIC STREP GROUP F QUANITY FEW SENS NON-VIABLE FOR SENSITIVITIES Organism 2 ALPHA STREP. NOT ENTEROCOCCUS QUANITY MANY SENS NO SENSITIVITY TO FOLLOW Organism 3 STAPHYLOCOCCUS AUREUS QUANITY RARE SENS SENSITIVITY TO FOLLOW Organism 4 YEAST NOT ETELVINA ALBICANS QUANITY FEW SENS NO SENSITIVITY TO FOLLOW Organism 5 ANAEROBIC GRAM NEGATIVE BACILL QUANITY FEW SENS NO SENSITIVITY TO FOLLOW Organism 6 GRAM POSITIVE BACILLI QUANITY MODERATE SENS NO SENSITIVITY TO FOLLOW Organism 7 STAPHYLOCOCCUS AUREUS#2 QUANITY RARE SENS SENSITIVITY TO FOLLOW STAPH AUR STAPH AUR#2 M.I.C. RX M.I.C. RX --------- ------ --------- ------ TRIMET/SULFA <=0.5/9.5 S <=0.5/9.5 S * OXACILLIN 0.5 S <=0.25 S VANCOMYCIN 2 S 1 S ERYTHROMYCIN >4 R >4 R TETRACYCLINE <=4 S >8 R CLINDAMYCIN <=0.5 S <=0.5 R DAPTOMYCIN <=0.5 S <=0.5 S CONTINUED ON NEXT PAGE RUN DATE: 09/17/16 [facility] PAGE 2 RUN TIME: 1030 Specimen Inquiry SPEC: [id number] PATIENT: BLAS HUNT [id number] ( Continued) Procedure Result Verified Site DEEP WOUND CULTURE Preliminary (continued) 09/17/16-1030 3. STAPHYLOCOCCUS AUREUS Target Route Dose RX AB Cost M.I.C. IQ ------ ----- ------ -- ------ -------- - ------ TRIMET/SULFA S <=0.5/ 9.5 * OXACILLIN S 0.5 VANCOMYCIN S 2 ERYTHROMYCIN R >4 TETRACYCLINE S <=4 CLINDAMYCIN S <=0.5 DAPTOMYCIN S <=0.5 7. STAPHYLOCOCCUS AUREUS#2 Target Route Dose RX AB Cost M.I.C. IQ ------ ----- ------ -- ------ -------- - ------ TRIMET/SULFA S <=0.5/ 9.5 * OXACILLIN S <=0.25 VANCOMYCIN S 1 ERYTHROMYCIN R >4 TETRACYCLINE R >8 CLINDAMYCIN R <=0.5 DAPTOMYCIN S <=0.5 S = SENSITIVE I = INTERMEDIATE R = RESISTANT Item Value Date Time Gram Stain - Final Resulted 09/14/16 0000 Tissue Arm Gram Stain - Final Resulted 09/13/16 2015 Abscess Arm , Left Lower Blood Culture - Preliminary Resulted 09/13/16 1933 Blood NO GROWTH TO DATE. Blood Culture - Preliminary Resulted 09/13/16 1840 Blood NO GROWTH TO DATE. Last 24 Hours Test 09/17/16 05:37 White Blood Count 6.74 K/uL Red Blood Count 3.93 M/uL Hemoglobin 12.1 g/dL Hematocrit 34.7 % Mean Corpuscular Volume 88.3 fL Mean Corpuscular Hemoglobin 30.8 pg Mean Corpuscular Hemoglobin Concent 34.9 g/dl RDW Standard Deviation 40.8 fL RDW Coefficient of Variation 12.5 % Platelet Count 282 K/uL Mean Platelet Volume 9.2 fL Sodium Level 144 mmol/L Potassium Level 3.7 mmol/L Chloride Level 109 mmol/L Carbon Dioxide Level 29 mmol/L Anion Gap 6.0 mmol/L Blood Urea Nitrogen 11 mg/dl Creatinine 0.79 mg/dl Est Creatinine Clear Calc Drug Dose 144.6 ml/min Estimated GFR () 135.8 Estimated GFR (Non- 117.2 BUN/Creatinine Ratio 14.4 Random Glucose 109 mg/dl Calcium Level 8.3 mg/dl Total Bilirubin 0.2 mg/dl Direct Bilirubin < 0.1 mg/dl Aspartate Amino Transf (AST/SGOT) 184 U/L Alanine Aminotransferase (ALT/SGPT) 352 U/L Alkaline Phosphatase 100 U/L Total Protein 6.2 gm/dl Albumin 2.3 gm/dl Prealbumin 10.9 mg/dl Vancomycin Level Trough 19.4 mcg/ml Assessment & Plan Patient is an IV drug user with large left forearm abscess with polymicrobial infection and new diagnosis of Hepatitis C. The patient has MSSA, anaerobic gram negative bacilli, yeast, strep, and multiple organisms growing from abscess culture. The patient is currently on IV Ceftriaxone and Flagyl which seems appropriate pending further culture results. Will also add fluconazole for now as well with yeast growing and history of IV drug abuse. The patient likely will need a few days of continues IV therapy and prolonged PO therapy pending improvement of his left arm. I also had a discussion with this patient about Hepatitis C treatment. He states that he is going to be working on getting clean from IV drugs, alcohol, etc. so he ultimately is hoping to have his Hep C treated in the future. He is currently searching for medical assistance. He was told to be evaluated after he has insurance coverage and also once he has discontinued drug use to be considered for treatment of Hep C. Our contact info was given to the patient. We will continue to follow. PROVIDER ADDENDUM: Patient examined and reviewed with Ms. Purvis. Agree with above assessment.
--- NOTE | 2016-09-17 12:04 | Family Medicine Progress Note ---
Progress Note Date of Service Sep 17, 2016. Subjective Pt evaluation today including: conversation w/ patient, physical exam, chart review, lab review Pain: Needs medications throughout the day Voiding: no voiding problems, no incontinence Doing well at this time Wants to have scheduled medications to help with pain Continues to be amenable to rehabilitation Tolerating wound vac, No issues overnight Additional Comments: A 10 point review of systems was negative unless stated above. Medications Current Inpatient Medications Medications (Trade) Dose Ordered Sig/Marilee Route Start Time Stop Time Status Last Admin Dose Admin Acetaminophen (Tylenol Tab) 650 mg Q4H PRN PO 09/13/16 21:15 10/13/16 21:14 09/14/16 08:19 650 MG Ondansetron HCl (Zofran Inj) 4 mg Q6H PRN IV 09/13/16 21:15 10/13/16 21:14 09/16/16 10:59 4 MG Ceftriaxone Sodium 1 gm/ Dextrose 50 ml @ 100 mls/hr Q24H IV 09/14/16 19:00 09/23/16 18:59 09/16/16 19:17 100 MLS/HR Albuterol/ Ipratropium (Duoneb) 3 ml Q4R PRN INH 09/13/16 22:00 10/13/16 21:59 Vancomycin HCl (Consult) 1 ea UD PRN N/A 09/13/16 22:30 10/13/16 22:29 Metoprolol Tartrate (Lopressor Tab) 12.5 mg TID PO 09/14/16 09:00 10/14/16 08:59 Future Hold 09/15/16 07:51 12.5 MG Lorazepam 1 mg/ Syringe 1 ml @ 1 mls/min Q2H PRN IV 09/13/16 23:15 10/13/16 23:14 09/17/16 04:13 1 MLS/MIN Nicotine (Nicoderm Cq 14MG Patch) 1 patch QAM TD 09/15/16 09:00 10/15/16 08:59 Miscellaneous (Remove Nicoderm Patch) 1 ea HS N/A 09/14/16 21:00 10/14/16 20:59 09/14/16 20:47 1 EA Vancomycin HCl 1700 mg/Sodium Chloride 534 ml @ 200 mls/hr Q8@0600,1400,2200 IV 09/15/16 14:00 09/24/16 05:59 Future Hold 09/17/16 05:44 200 MLS/HR Hydromorphone HCl (Dilaudid Inj) 1 mg Q4H PRN IV 09/16/16 07:05 09/30/16 07:04 09/17/16 05:45 1 MG Metronidazole 500 mg/Prmx 100 ml @ 100 mls/hr Q8H IV 09/16/16 16:00 09/26/16 15:59 09/17/16 08:52 100 MLS/HR Ketorolac Tromethamine (Toradol Inj) 30 mg Q6H PRN IV 09/17/16 08:45 09/22/16 08:44 Tapentadol (Nucynta Er Tab) 50 mg Q12 PO 09/17/16 09:00 10/17/16 08:59 09/17/16 09:39 50 MG Tapentadol (Nucynta Tab) 50 mg Q4H PRN PO 09/17/16 08:45 10/01/16 08:44 Fluconazole (Diflucan Tab) 200 mg QAM PO 09/17/16 11:30 09/27/16 11:29 Objective Vital Signs Date Time Temp Pulse Resp B/P (MAP) Pulse Ox O2 Delivery O2 Flow Rate FiO2 09/17/16 08:03 36.7 81 16 133/90 (104) 97 Room Air 09/17/16 07:35 Room Air 09/16/16 23:00 36.7 85 16 133/81 (98) 99 Room Air 09/16/16 19:15 Room Air 09/16/16 16:00 97 Room Air 09/16/16 15:26 36.9 87 16 124/80 (95) 97 Room Air Physical Exam General Appearance: WD/WN, no apparent distress Eyes: normal inspection, EOMI ENT: hearing grossly normal, pharynx normal Neck: supple, no adenopathy, no JVD Respiratory/Chest: + pertinent finding (coarse braeth sounds bilaterally; no change from baseline) Cardiovascular: no edema, no JVD Abdomen: normal bowel sounds, non tender, soft Extremities: + pertinent finding (Wound vac. No surround erythema. Mild arm edema. Normal pulses in the left extremity) Neurologic/Psychiatric: alert, oriented x 3 Skin: normal color, warm/dry, no rash Lymphatic: no adenopathy Laboratory Results Last 24 Hours Test 09/17/16 05:37 White Blood Count 6.74 K/uL Red Blood Count 3.93 M/uL Hemoglobin 12.1 g/dL Hematocrit 34.7 % Mean Corpuscular Volume 88.3 fL Mean Corpuscular Hemoglobin 30.8 pg Mean Corpuscular Hemoglobin Concent 34.9 g/dl RDW Standard Deviation 40.8 fL RDW Coefficient of Variation 12.5 % Platelet Count 282 K/uL Mean Platelet Volume 9.2 fL Sodium Level 144 mmol/L Potassium Level 3.7 mmol/L Chloride Level 109 mmol/L Carbon Dioxide Level 29 mmol/L Anion Gap 6.0 mmol/L Blood Urea Nitrogen 11 mg/dl Creatinine 0.79 mg/dl Est Creatinine Clear Calc Drug Dose 144.6 ml/min Estimated GFR () 135.8 Estimated GFR (Non- 117.2 BUN/Creatinine Ratio 14.4 Random Glucose 109 mg/dl Calcium Level 8.3 mg/dl Total Bilirubin 0.2 mg/dl Direct Bilirubin < 0.1 mg/dl Aspartate Amino Transf (AST/SGOT) 184 U/L Alanine Aminotransferase (ALT/SGPT) 352 U/L Alkaline Phosphatase 100 U/L Total Protein 6.2 gm/dl Albumin 2.3 gm/dl Prealbumin 10.9 mg/dl Vancomycin Level Trough 19.4 mcg/ml Assessment and Plan This is a 35 year old male day 3 s/p I&D for purulent cellulitis of the left upper extremity. Wound vac in place and draining well. Arm looking much better overall. Current balancing issues pain control vs. opioid dependence. Will need to continue on IV antibiotics for the present time. Our plan for him is as follows: Sepsis secondary to left forearm cellulitis - Day 3 s/p I&D for incision and drainage - Afebrile overnight; no leukocytosis - Surgical recommendations appreciated - Currently has a wound vac in place; awaiting case management input on whether he can have this with him in the outpatient setting - Intra-operative Wound culture growing strep species - Abscess cultures polymicrobial with including Staph Aureus, anaerobes and fungi Discontinued Vancomycin as they are penicillin sensitive Fluconazole added per ID for fungal coverage Flagyl added for anaerobic cover - Continue Rocephin - Blood cultures negative to date - Pain management as noted below New Hepatitis C Diagnosis - ID consulted; needs to be off IVDU - Continue to monitor transaminases daily Intravenous Opioid Abuser - Continue Ativan PRN - Echo negative for valvular pathology - Cannot go to inpatient rehabiltation with wound vac; will pursue outpatient options most likely - Percocet discontinued as patient has transaminitis, likely 2/2 hep C infection Changed to Oxycodone IR 10 mg q 4h scheduled AND Oxycodone 5 mg q 4h PRN for pain - Pain management consultation placed by surgery Tapentadol added Morphine discontinued Dilaudid maintained for breakthrough pain Recommendations appreciated Coarse breath sounds; tobacco abuser - No change in exam; baseline due to extensive smoking history - No evidence of respiratory distress or hypoxia - Smoking cessation and nicotine patch DVT Prophylaxis - SCD Disposition - Med/Surg Continued [facility] stay due to: multiple IV medications needed Discharge planning: uncertain Reviewed: Pt Seen/Exam by Me History continuing to feel better wound vac applied to left forearm incision Constitutional: denies: fever Respiratory: negative: short of breath Cardiovascular: denies chest pain Gastrointestinal/Abdominal: negative: abdominal pain General Appearance: no apparent distress Respiratory: lungs clear, no respiratory distress Cardiovascular: regular rate, rhythm Extremities: other (Left arm wound with wound vac placed) Neurologic/Psychiatric: alert, oriented x 3 Assessment/Plan I have reviewed the medical record and performed a history and physical examination of this patient today. I have discussed the case with Dr. Holley. The above note reflects my findings, conclusions, and recommendations.
[2016-09-17] MEDS: FLUCONAZOLE 100 MG TAB PO SCH (12:15)
[2016-09-17] MEDS: TAPENTADOL HCL 50 MG TAB PO PRN ×3 (12:21→23:49)
[2016-09-17 15:24] VITALS: BP 137/88; PULSE 80; TEMP 37.1; O2SAT 96
[2016-09-17] MEDS: KETOROLAC TROMETHAMINE 30 MG/ML VIAL IV PRN (15:37)
[2016-09-17] MEDS: CEFTRIAXONE SOD INJ 1 GM in DEXTROSE 5% ADD-VANTAGE 50ML 50 ML IV SCH (19:37)
[2016-09-17] MEDS: ONDANSETRON INJ 2 MG/ML 2 ML VIAL IV PRN (19:37)
[2016-09-17 23:04] VITALS: BP 136/86; PULSE 78; TEMP 36.8; O2SAT 99
[2016-09-18] MEDS: HYDROmorphone INJ 1 MG/ML SYR IV PRN ×6 (03:08→23:47)
[2016-09-18 05:36] LABS: HEPATITIS C RNA TMA QUAL Detected
[2016-09-18 05:57] LABS: HEMATOCRIT 39.1 % (42-52); MEAN CELL VOLUME 87.9 fL (80-100); MEAN CORPUSCULAR HEMOGLOBIN 29.9 pg (25-34); MEAN PLATELET VOLUME 8.9 fL (7.4-10.4); PLATELET COUNT 325 K/uL (130-400); RED BLOOD COUNT 4.45 M/uL (4.7-6.1); WHITE BLOOD COUNT 6.64 K/uL (4.8-10.8)
[2016-09-18 06:29] LABS: ALKALINE PHOSPHATASE 145 U/L (45-117); ALT/SGPT 545 U/L (12-78); AST/SGOT 309 U/L (15-37)
[2016-09-18 06:35] LABS: CALCIUM 8.3 mg/dl (8.5-10.1); CREATININE 0.84 mg/dl (0.60-1.40); POTASSIUM 4.2 mmol/L (3.5-5.1)
[2016-09-18 07:15] VITALS: BP 139/82; PULSE 70; TEMP 36.9; O2SAT 96
[2016-09-18] MEDS: METRONIDAZOLE / NSS 500 MG in PREMIXED NSS 100 ML IV SCH ×3 (07:18→23:41)
[2016-09-18] MEDS: FLUCONAZOLE 100 MG TAB PO SCH (08:21)
[2016-09-18] MEDS: NICOTINE 14 MG/24 HR TDSY TD SCH (08:21)
[2016-09-18] MEDS: TAPENTADOL HCL 50 MG TAB PO PRN ×2 (08:22→12:36)
[2016-09-18] MEDS: TAPENTADOL ER 50 MG TABCR PO SCH ×2 (08:22→20:51)
--- NOTE | 2016-09-18 12:08 | Family Medicine Progress Note ---
Progress Note Date of Service Sep 18, 2016. Subjective Pt evaluation today including: conversation w/ patient, physical exam, chart review, lab review Pain: Stable Voiding: no voiding problems, no incontinence No fevers, chills, sweats. Left arm pain improving slightly; swelling feels improved, less red Tolerating wound vac Pain remains unchanged; not worsening; meds are helping No issues per nursing Additional Comments: A 10 point review of systems was negative unless stated above. Medications Current Inpatient Medications Medications (Trade) Dose Ordered Sig/Marilee Route Start Time Stop Time Status Last Admin Dose Admin Acetaminophen (Tylenol Tab) 650 mg Q4H PRN PO 09/13/16 21:15 10/13/16 21:14 09/14/16 08:19 650 MG Ondansetron HCl (Zofran Inj) 4 mg Q6H PRN IV 09/13/16 21:15 10/13/16 21:14 09/17/16 19:37 4 MG Ceftriaxone Sodium 1 gm/ Dextrose 50 ml @ 100 mls/hr Q24H IV 09/14/16 19:00 09/23/16 18:59 09/17/16 19:37 100 MLS/HR Albuterol/ Ipratropium (Duoneb) 3 ml Q4R PRN INH 09/13/16 22:00 10/13/16 21:59 Vancomycin HCl (Consult) 1 ea UD PRN N/A 09/13/16 22:30 10/13/16 22:29 Future Hold Metoprolol Tartrate (Lopressor Tab) 12.5 mg TID PO 09/14/16 09:00 10/14/16 08:59 Future Hold 09/15/16 07:51 12.5 MG Lorazepam 1 mg/ Syringe 1 ml @ 1 mls/min Q2H PRN IV 09/13/16 23:15 10/13/16 23:14 09/17/16 04:13 1 MLS/MIN Nicotine (Nicoderm Cq 14MG Patch) 1 patch QAM TD 09/15/16 09:00 10/15/16 08:59 Miscellaneous (Remove Nicoderm Patch) 1 ea HS N/A 09/14/16 21:00 10/14/16 20:59 09/14/16 20:47 1 EA Vancomycin HCl 1700 mg/Sodium Chloride 534 ml @ 200 mls/hr Q8@0600,1400,2200 IV 09/15/16 14:00 09/24/16 05:59 Future Hold 09/17/16 05:44 200 MLS/HR Hydromorphone HCl (Dilaudid Inj) 1 mg Q4H PRN IV 09/16/16 07:05 09/30/16 07:04 09/18/16 11:17 1 MG Metronidazole 500 mg/Prmx 100 ml @ 100 mls/hr Q8H IV 09/16/16 16:00 09/26/16 15:59 09/18/16 07:18 100 MLS/HR Ketorolac Tromethamine (Toradol Inj) 30 mg Q6H PRN IV 09/17/16 08:45 09/22/16 08:44 09/17/16 15:37 30 MG Tapentadol (Nucynta Er Tab) 50 mg Q12 PO 09/17/16 09:00 10/17/16 08:59 09/18/16 08:22 50 MG Tapentadol (Nucynta Tab) 50 mg Q4H PRN PO 09/17/16 08:45 10/01/16 08:44 09/18/16 08:22 50 MG Fluconazole (Diflucan Tab) 200 mg QAM PO 09/17/16 11:30 09/27/16 11:29 09/18/16 08:21 200 MG Objective Vital Signs Date Time Temp Pulse Resp B/P (MAP) Pulse Ox O2 Delivery O2 Flow Rate FiO2 09/18/16 09:56 Room Air 09/18/16 07:15 36.9 70 16 139/82 (101) 96 Room Air 09/17/16 23:30 Room Air 09/17/16 23:04 36.8 78 16 136/86 (103) 99 Room Air 09/17/16 15:30 Room Air 09/17/16 15:24 37.1 80 16 137/88 (104) 96 Room Air Physical Exam General Appearance: WD/WN, no apparent distress Eyes: normal inspection, EOMI ENT: hearing grossly normal, pharynx normal Neck: supple, no adenopathy, no JVD Respiratory/Chest: no respiratory distress, no accessory muscle use, + pertinent finding (coarse breath sounds at baseline) Cardiovascular: regular rate, rhythm, no gallop, no murmur Abdomen: normal bowel sounds, non tender, soft Extremities: non-tender, no pedal edema, + pertinent finding (left arm; wound vac in place; no drainage; no erythema surrounding dressing) Neurologic/Psychiatric: alert, oriented x 3 Skin: normal color, warm/dry, no rash Lymphatic: no adenopathy Laboratory Results Current Inpatient Medications Medications (Trade) Dose Ordered Sig/Marilee Route Start Time Stop Time Status Last Admin Dose Admin Acetaminophen (Tylenol Tab) 650 mg Q4H PRN PO 09/13/16 21:15 10/13/16 21:14 09/14/16 08:19 650 MG Ondansetron HCl (Zofran Inj) 4 mg Q6H PRN IV 09/13/16 21:15 10/13/16 21:14 09/17/16 19:37 4 MG Ceftriaxone Sodium 1 gm/ Dextrose 50 ml @ 100 mls/hr Q24H IV 09/14/16 19:00 09/23/16 18:59 09/17/16 19:37 100 MLS/HR Albuterol/ Ipratropium (Duoneb) 3 ml Q4R PRN INH 09/13/16 22:00 10/13/16 21:59 Vancomycin HCl (Consult) 1 ea UD PRN N/A 09/13/16 22:30 10/13/16 22:29 Future Hold Metoprolol Tartrate (Lopressor Tab) 12.5 mg TID PO 09/14/16 09:00 10/14/16 08:59 Future Hold 09/15/16 07:51 12.5 MG Lorazepam 1 mg/ Syringe 1 ml @ 1 mls/min Q2H PRN IV 09/13/16 23:15 10/13/16 23:14 09/17/16 04:13 1 MLS/MIN Nicotine (Nicoderm Cq 14MG Patch) 1 patch QAM TD 09/15/16 09:00 10/15/16 08:59 Miscellaneous (Remove Nicoderm Patch) 1 ea HS N/A 09/14/16 21:00 10/14/16 20:59 09/14/16 20:47 1 EA Vancomycin HCl 1700 mg/Sodium Chloride 534 ml @ 200 mls/hr Q8@0600,1400,2200 IV 09/15/16 14:00 09/24/16 05:59 Future Hold 09/17/16 05:44 200 MLS/HR Hydromorphone HCl (Dilaudid Inj) 1 mg Q4H PRN IV 09/16/16 07:05 09/30/16 07:04 09/18/16 11:17 1 MG Metronidazole 500 mg/Prmx 100 ml @ 100 mls/hr Q8H IV 09/16/16 16:00 09/26/16 15:59 09/18/16 07:18 100 MLS/HR Ketorolac Tromethamine (Toradol Inj) 30 mg Q6H PRN IV 09/17/16 08:45 09/22/16 08:44 09/17/16 15:37 30 MG Tapentadol (Nucynta Er Tab) 50 mg Q12 PO 09/17/16 09:00 10/17/16 08:59 09/18/16 08:22 50 MG Tapentadol (Nucynta Tab) 50 mg Q4H PRN PO 09/17/16 08:45 10/01/16 08:44 09/18/16 08:22 50 MG Fluconazole (Diflucan Tab) 200 mg QAM PO 09/17/16 11:30 09/27/16 11:29 09/18/16 08:21 200 MG Assessment and Plan This is a 35 year old male day 4 s/p I&D for purulent cellulitis of the left upper extremity. Wound vac on. Needs vac on to be discharged but no insurance so currently awaiting approval and patient to continue inpatient IV Abx Our plan for him is as follows: Sepsis secondary to left forearm cellulitis - Day 4 s/p I&D for incision and drainage - Afebrile overnight; no leukocytosis - Discussed case with sgx; safe to d/c from surgical standpoint; needs office f/ u 1 week after discharge - Continue wound vac; wound care recommendations appreciated; needs wound vac as outpatient to be suitable for discharge - Intra-operative Wound culture growing strep species - Abscess cultures polymicrobial with including Staph Aureus, anaerobes and fungi - Continue Rocephin, Flagyl and Fluconazole - ID recommendations appreciated - Blood cultures negative to date - Pain management as noted below New Hepatitis C Diagnosis - ID consulted; needs to be off IVDU - Transaminitis - Liver U/S today Intravenous Opioid Abuser - Continue Ativan PRN - Echo negative for valvular pathology - Wound vac prevents patient from going to inpatient rehabilitation directly - Pain management recommendations appreciated Tapentadol Dilaudid maintained for breakthrough pain Coarse breath sounds; tobacco abuser - No change in exam; baseline due to extensive smoking history - No evidence of respiratory distress or hypoxia - Smoking cessation and nicotine patch DVT Prophylaxis - SCD - Ambulate in hallway Disposition - Med/Surg - Patient continues to need IV antibiotics; currently trying to get outpatient wound vac approved so he can be discharged on oral Abx Continued [facility] stay due to: multiple IV medications needed Discharge planning: uncertain Reviewed: Pt Seen/Exam by Me History no new concerns pain in left arm controlled Constitutional: denies: fever Respiratory: negative: short of breath Cardiovascular: denies chest pain General Appearance: no apparent distress Respiratory: lungs clear, no respiratory distress Cardiovascular: regular rate, rhythm Extremities: other (left arm with wound vac) Neurologic/Psychiatric: alert, oriented x 3 Skin Characteristics: warm/dry Assessment/Plan I have reviewed the medical record and performed a history and physical examination of this patient today. I have discussed the case with Dr. Holley. The above note reflects my findings, conclusions, and recommendations. Continue wound vac. case mx arranging wound vac for home Pain management input appreciated
--- NOTE | 2016-09-18 12:32 | DIAGNOSTIC IMAGING REPORT ---
Biliary ultrasound CLINICAL HISTORY: transaminitis; HepC; IVDU COMPARISON STUDY: No previous studies for comparison. FINDINGS: The liver appears sonographically normal. Visualization the pancreas was limited, but no definite abnormalities were evident. Multiple small gallstones are visualized. There is no ductal dilatation. The common bile duct measures 5 mm. There is no right-sided hydronephrosis. IMPRESSION: 1. Cholelithiasis. No evidence of ductal dilatation. Electronically signed by: Charlie Vazquez M.D. 09/18/2016 12:31 PM Dictated Date/Time: 09/18/2016 9:17 AM
[2016-09-18 14:54] VITALS: BP 134/81; PULSE 79; TEMP 36.7; O2SAT 96
[2016-09-18] MEDS: CEFTRIAXONE SOD INJ 1 GM in DEXTROSE 5% ADD-VANTAGE 50ML 50 ML IV SCH (18:22)
[2016-09-18 22:48] VITALS: BP 114/74; PULSE 74; TEMP 36.8; O2SAT 98
[2016-09-19] MEDS: TAPENTADOL HCL 50 MG TAB PO PRN ×3 (03:30→14:04)
[2016-09-19 07:25] LABS: HEMATOCRIT 39.5 % (42-52); MEAN CELL VOLUME 88.6 fL (80-100); MEAN CORPUSCULAR HEMOGLOBIN 31.2 pg (25-34); MEAN CORPUSCULAR HGB CONC 35.2 g/dl (32-36); PLATELET COUNT 351 K/uL (130-400); RED BLOOD COUNT 4.46 M/uL (4.7-6.1); WHITE BLOOD COUNT 6.94 K/uL (4.8-10.8)
[2016-09-19] MEDS: METRONIDAZOLE / NSS 500 MG in PREMIXED NSS 100 ML IV SCH ×3 (07:38→23:50)
[2016-09-19] MEDS: HYDROmorphone INJ 1 MG/ML SYR IV PRN ×4 (07:39→20:22)
[2016-09-19 07:43] VITALS: BP 129/86; PULSE 57; TEMP 36.5; O2SAT 98
[2016-09-19 08:03] LABS: ALT/SGPT 671 U/L (12-78); AST/SGOT 366 U/L (15-37); BLOOD UREA NITROGEN 17 mg/dl (7-18); BUN/CREATININE RATIO 19.9 (10-20); CALCIUM 8.7 mg/dl (8.5-10.1); CARBON DIOXIDE 28 mmol/L (21-32); CHLORIDE 105 mmol/L (98-107); CREATININE 0.84 mg/dl (0.60-1.40); GLUCOSE 90 mg/dl (70-99); POTASSIUM 4.4 mmol/L (3.5-5.1); SODIUM 141 mmol/L (136-145)
[2016-09-19 08:06] LABS: ALKALINE PHOSPHATASE 180 U/L (45-117)
[2016-09-19] MEDS: FLUCONAZOLE 100 MG TAB PO SCH (08:56)
[2016-09-19] MEDS: TAPENTADOL ER 50 MG TABCR PO SCH ×2 (08:56→21:17)
[2016-09-19] MEDS: NICOTINE 14 MG/24 HR TDSY TD SCH (08:58)
--- NOTE | 2016-09-19 12:05 | Family Medicine Progress Note ---
Progress Note Date of Service Sep 19, 2016. Subjective Pt evaluation today including: conversation w/ patient, physical exam, chart review, lab review, review of studies Pain: 0/10 PO Intake: WNL Voiding: no voiding problems Pain is under good control Reflects ongoing interest iin rehab in outpt setting Discussed wound care vac for d/c with case mx and most likely not this weekend Constitutional: No fever Eyes: No worsening of vision ENT: No hearing loss Respiratory: No cough, No sputum, No wheezing, No shortness of breath, No dyspnea on exertion Cardiovascular: No chest pain Abdomen: No pain, No nausea, No vomiting, No diarrhea, No constipation Musculoskeletal: No joint pain, No muscle pain Male : No dysuria Psychiatric: No depression symptoms, No anxiety Endo: No fatigue Objective Vital Signs Date Time Temp Pulse Resp B/P (MAP) Pulse Ox O2 Delivery O2 Flow Rate FiO2 09/19/16 08:00 Room Air 09/19/16 07:43 36.5 57 16 129/86 (100) 98 Room Air 09/18/16 23:45 Room Air 09/18/16 22:48 36.8 74 16 114/74 (87) 98 Room Air 09/18/16 18:50 Room Air 09/18/16 14:54 36.7 79 16 134/81 (98) 96 Room Air Physical Exam General Appearance: no apparent distress Eyes: normal inspection ENT: normal ENT inspection Neck: supple Respiratory/Chest: normal breath sounds, no respiratory distress, no accessory muscle use Cardiovascular: regular rate, rhythm, no murmur Abdomen: normal bowel sounds, non tender, soft Extremities: non-tender, normal inspection, no pedal edema, no calf tenderness , + pertinent finding (wound vac noted, draining well) Neurologic/Psychiatric: alert, normal mood/affect, oriented x 3 Skin: normal color, warm/dry, no rash Lymphatic: no adenopathy Laboratory Results Results Past 24 Hours Test 09/19/16 07:14 Range/Units White Blood Count 6.94 4.8-10.8 K/uL Red Blood Count 4.46 4.7-6.1 M/uL Hemoglobin 13.9 14.0-18.0 g/dL Hematocrit 39.5 42-52 % Mean Corpuscular Volume 88.6 80-100 fL Mean Corpuscular Hemoglobin 31.2 25-34 pg Mean Corpuscular Hemoglobin Concent 35.2 32-36 g/dl RDW Standard Deviation 41.5 36.4-46.3 fL RDW Coefficient of Variation 12.8 11.5-14.5 % Platelet Count 351 130-400 K/uL Mean Platelet Volume 9.0 7.4-10.4 fL Sodium Level 141 136-145 mmol/L Potassium Level 4.4 3.5-5.1 mmol/L Chloride Level 105 98-107 mmol/L Carbon Dioxide Level 28 21-32 mmol/L Anion Gap 8.0 3-11 mmol/L Blood Urea Nitrogen 17 7-18 mg/dl Creatinine 0.84 0.60-1.40 mg/dl Est Creatinine Clear Calc Drug Dose 136.0 ml/min Estimated GFR () 132.4 Estimated GFR (Non- 114.2 BUN/Creatinine Ratio 19.9 10-20 Random Glucose 90 70-99 mg/dl Calcium Level 8.7 8.5-10.1 mg/dl Total Bilirubin 0.2 0.2-1 mg/dl Direct Bilirubin < 0.1 0-0.2 mg/dl Aspartate Amino Transf (AST/SGOT) 366 15-37 U/L Alanine Aminotransferase (ALT/SGPT) 671 12-78 U/L Alkaline Phosphatase 180 45-117 U/L Total Protein 7.2 6.4-8.2 gm/dl Albumin 2.9 3.4-5.0 gm/dl Assessment and Plan This is a 35 year old male day 4 s/p I&D for purulent cellulitis of the left upper extremity. PLan is for d/c with wound vac however he does not have any insurance so approval is pending Sepsis secondary to left forearm cellulitis - Day 5 s/p I&D for incision and drainage - f/u with surgery one week after d/c - Continue wound vac; wound care recommendations appreciated; needs wound vac as outpatient to be suitable for discharge - Intra-operative Wound culture growing strep species - Abscess cultures polymicrobial with including Staph Aureus, anaerobes and fungi - Continue Rocephin, Flagyl and Fluconazole - ID recommendations appreciated - Blood cultures negative to date - Pain control with Tapentadol and dilaudid for breakthrough pain - per pain mx New Hepatitis C Diagnosis - ID consulted; needs to be off IVDU - Transaminitis - Liver U/S today reflected cholelithiasis Intravenous Opioid Abuser - Continue Ativan PRN - Echo negative for valvular pathology - Wound vac prevents patient from going to inpatient rehabilitation directly - Pain management recommendations appreciated Tapentadol Dilaudid maintained for breakthrough pain Tobacco abuser - Smoking cessation and nicotine patch DVT Prophylaxis - SCD - Ambulate in hallway Disposition - Med/Surg - Patient continues to need IV antibiotics; currently trying to get outpatient wound vac approved so he can be discharged on oral Abx Continued [facility] stay due to: other Discharge planning: uncertain Reviewed: Pt Seen/Exam by Me History sitting comfortably in chair denies any concerns pain in left arm controlled Constitutional: denies: fever Respiratory: negative: short of breath Cardiovascular: denies chest pain General Appearance: no apparent distress Respiratory: no respiratory distress Extremities: other (left arm - wound vac present) Neurologic/Psychiatric: alert, oriented x 3 Skin Characteristics: warm/dry Assessment/Plan I have reviewed the medical record and performed a history and physical examination of this patient today. I have discussed the case with Dr. Gotti. The above note reflects my findings, conclusions, and recommendations.
--- NOTE | 2016-09-19 13:29 | Surgery Progress Note ---
Surgery Progress Note Date of Service Sep 19, 2016. Subjective + feeling well pt is doing fine, no C/O, wound vac on left arm, Objective Vital Signs: Date Time Temp Pulse Resp B/P (MAP) Pulse Ox O2 Delivery O2 Flow Rate FiO2 09/19/16 08:00 Room Air 09/19/16 07:43 36.5 57 16 129/86 (100) 98 Room Air 09/18/16 23:45 Room Air 09/18/16 22:48 36.8 74 16 114/74 (87) 98 Room Air 09/18/16 18:50 Room Air 09/18/16 14:54 36.7 79 16 134/81 (98) 96 Room Air General Appearance: WD/WN Head: normocephalic Neck: supple, no JVD Respiratory/Chest: chest non-tender, lungs clear Cardiovascular: regular rate, rhythm, no edema, no gallop, no JVD Abdomen: normal bowel sounds, non tender, non distended Incision(s): clean, dry, intact Extremities: normal range of motion, non-tender, normal inspection Laboratory Results: Results Past 24 Hours Test 09/19/16 07:14 Range/Units White Blood Count 6.94 4.8-10.8 K/uL Red Blood Count 4.46 4.7-6.1 M/uL Hemoglobin 13.9 14.0-18.0 g/dL Hematocrit 39.5 42-52 % Mean Corpuscular Volume 88.6 80-100 fL Mean Corpuscular Hemoglobin 31.2 25-34 pg Mean Corpuscular Hemoglobin Concent 35.2 32-36 g/dl RDW Standard Deviation 41.5 36.4-46.3 fL RDW Coefficient of Variation 12.8 11.5-14.5 % Platelet Count 351 130-400 K/uL Mean Platelet Volume 9.0 7.4-10.4 fL Sodium Level 141 136-145 mmol/L Potassium Level 4.4 3.5-5.1 mmol/L Chloride Level 105 98-107 mmol/L Carbon Dioxide Level 28 21-32 mmol/L Anion Gap 8.0 3-11 mmol/L Blood Urea Nitrogen 17 7-18 mg/dl Creatinine 0.84 0.60-1.40 mg/dl Est Creatinine Clear Calc Drug Dose 136.0 ml/min Estimated GFR () 132.4 Estimated GFR (Non- 114.2 BUN/Creatinine Ratio 19.9 10-20 Random Glucose 90 70-99 mg/dl Calcium Level 8.7 8.5-10.1 mg/dl Total Bilirubin 0.2 0.2-1 mg/dl Direct Bilirubin < 0.1 0-0.2 mg/dl Aspartate Amino Transf (AST/SGOT) 366 15-37 U/L Alanine Aminotransferase (ALT/SGPT) 671 12-78 U/L Alkaline Phosphatase 180 45-117 U/L Total Protein 7.2 6.4-8.2 gm/dl Albumin 2.9 3.4-5.0 gm/dl Assessment & Plan S/P I/D abscess on left arm, pt is doing fine, continue treatment, will F/U
[2016-09-19 14:49] VITALS: BP 123/79; PULSE 76; TEMP 36.7; O2SAT 97
[2016-09-19] MEDS: CEFTRIAXONE SOD INJ 1 GM in DEXTROSE 5% ADD-VANTAGE 50ML 50 ML IV SCH (19:28)
[2016-09-19 22:51] VITALS: BP 136/80; PULSE 72; TEMP 36.8; O2SAT 97
[2016-09-20] MEDS: HYDROmorphone INJ 1 MG/ML SYR IV PRN ×6 (00:22→22:21)
[2016-09-20 06:32] LABS: HEMATOCRIT 42.2 % (42-52); MEAN CORPUSCULAR HEMOGLOBIN 31.3 pg (25-34); MEAN CORPUSCULAR HGB CONC 34.8 g/dl (32-36); PLATELET COUNT 405 K/uL (130-400); RED BLOOD COUNT 4.69 M/uL (4.7-6.1); WHITE BLOOD COUNT 7.49 K/uL (4.8-10.8)
[2016-09-20 06:59] LABS: BUN/CREATININE RATIO 22.4 (10-20); CALCIUM 8.6 mg/dl (8.5-10.1); CREATININE 0.82 mg/dl (0.60-1.40); POTASSIUM 4.2 mmol/L (3.5-5.1)
[2016-09-20 07:14] VITALS: BP 119/78; PULSE 62; TEMP 36.8; O2SAT 97
[2016-09-20] MEDS: NICOTINE 14 MG/24 HR TDSY TD SCH (09:00)
[2016-09-20] MEDS: FLUCONAZOLE 100 MG TAB PO SCH (09:21)
[2016-09-20] MEDS: METRONIDAZOLE / NSS 500 MG in PREMIXED NSS 100 ML IV SCH (09:21)
[2016-09-20] MEDS: TAPENTADOL ER 50 MG TABCR PO SCH ×2 (09:21→20:47)
[2016-09-20] MEDS: TAPENTADOL HCL 50 MG TAB PO PRN (09:22)
--- NOTE | 2016-09-20 11:10 | Family Medicine Progress Note ---
Progress Note Date of Service Sep 20, 2016. Subjective Pt evaluation today including: conversation w/ patient, physical exam, chart review, lab review, review of studies Pain: 0/10 PO Intake: WNL Voiding: no voiding problems Pain well controlled with current regimen has filled out paperwork for the wound vac and will be submitted tomorrow questions and concerns addressed Constitutional: No fever Eyes: No worsening of vision ENT: No hearing loss Respiratory: No cough, No sputum, No wheezing, No shortness of breath, No dyspnea on exertion Cardiovascular: No chest pain Abdomen: No pain, No nausea, No vomiting, No diarrhea, No constipation Musculoskeletal: No joint pain, No muscle pain Male : No dysuria Neurologic: No paralysis, No weakness, No balance problems Psychiatric: No depression symptoms Heme: No abnormal bleeding/bruising Endo: No fatigue Medications Medications Administered Medications (Trade) Dose Ordered Sig/Marilee Route Start Time Stop Time Status Last Admin Dose Admin Lidocaine/ Epinephrine (Xylocaine/Epine 1% Inj) 20 ml ONE ONCE INFIL 09/13/16 18:30 09/13/16 18:31 DC 09/13/16 19:04 20 ML Ketorolac Tromethamine (Toradol Inj) 30 mg NOW STAT IV 09/13/16 18:22 09/13/16 18:25 DC 09/13/16 19:05 30 MG Sodium Chloride 1,000 ml @ 999 mls/hr Q1H1M STAT IV 09/13/16 18:22 09/13/16 19:22 DC 09/13/16 19:04 999 MLS/HR Ceftriaxone Sodium (Rocephin Inj) 1 gm NOW STAT IV 09/13/16 18:41 09/13/16 18:42 DC 09/13/16 19:05 1 GM Clindamycin Phosphate 900 mg/ Dextrose 106 ml @ 100 mls/hr ONE ONCE IV 09/13/16 19:45 09/13/16 20:48 DC 09/13/16 19:53 100 MLS/HR Morphine Sulfate (MoRPHine SULFATE INJ) 8 mg NOW STAT IV 09/13/16 19:32 09/13/16 19:33 DC 09/13/16 19:32 8 MG Sodium Chloride 1,000 ml @ 999 mls/hr Q1H1M STAT IV 09/13/16 19:43 09/13/16 20:43 DC 09/13/16 20:00 999 MLS/HR Acetaminophen (Tylenol Tab) 1,000 mg NOW STAT PO 09/13/16 20:24 09/13/16 20:25 DC 09/13/16 20:29 1,000 MG Acetaminophen (Tylenol Tab) 650 mg Q4H PRN PO 09/13/16 21:15 10/13/16 21:14 09/14/16 08:19 650 MG Ondansetron HCl (Zofran Inj) 4 mg Q6H PRN IV 09/13/16 21:15 10/13/16 21:14 09/17/16 19:37 4 MG Potassium Chloride/Sodium Chloride 1,000 ml @ 150 mls/hr Q6H40M IV 09/13/16 22:30 09/14/16 05:09 DC 09/13/16 22:42 150 MLS/HR Sodium Chloride 1,000 ml @ 150 mls/hr Q6H40M IV 09/14/16 05:00 09/15/16 00:59 DC 09/14/16 18:28 150 MLS/HR Ceftriaxone Sodium 1 gm/ Dextrose 50 ml @ 100 mls/hr Q24H IV 09/14/16 19:00 09/23/16 18:59 09/19/16 19:28 100 MLS/HR Vancomycin HCl 2000 mg/Sodium Chloride 540 ml @ 200 mls/hr NOW ONCE IV 09/13/16 22:30 09/14/16 01:11 DC 09/13/16 22:42 200 MLS/HR Metoprolol Tartrate (Lopressor Tab) 12.5 mg TID PO 09/14/16 09:00 10/14/16 08:59 Future Hold 09/15/16 07:51 12.5 MG Lorazepam 1 mg/ Syringe 1 ml @ 1 mls/min Q2H PRN IV 09/13/16 23:15 10/13/16 23:14 09/17/16 04:13 1 MLS/MIN Morphine Sulfate (MoRPHine SULFATE INJ) 3 mg Q2H PRN IV 09/13/16 23:15 09/14/16 04:43 DC 09/14/16 03:26 3 MG Morphine Sulfate (MoRPHine SULFATE INJ) 4 mg STK-MED ONCE .ROUTE 09/13/16 23:11 09/13/16 23:12 DC 09/13/16 23:14 3 MG Vancomycin HCl 1300 mg/Sodium Chloride 276 ml @ 125 mls/hr Q8H IV 09/14/16 06:00 09/15/16 08:49 DC 09/15/16 05:43 125 MLS/HR Morphine Sulfate (MoRPHine SULFATE INJ) 4 mg Q2H PRN IV 09/14/16 05:15 09/17/16 08:40 DC 09/16/16 21:41 4 MG Hydromorphone HCl (Dilaudid Inj) 1 mg Q2H PRN IV 09/14/16 04:45 09/16/16 07:06 DC 09/16/16 04:43 1 MG Hydromorphone HCl (Dilaudid Inj) 1 mg STK-MED ONCE .ROUTE 09/14/16 05:26 09/14/16 05:27 DC 09/14/16 05:27 1 MG Miscellaneous (Remove Nicoderm Patch) 1 ea HS N/A 09/14/16 21:00 10/14/16 20:59 09/19/16 21:17 1 EA Nicotine (Nicoderm Cq 14MG Patch) 1 patch 1245 ONCE TD 09/14/16 12:45 09/14/16 12:46 DC 09/14/16 12:39 1 PATCH Hydromorphone HCl (Dilaudid Inj) 2 mg STK-MED ONCE .ROUTE 09/14/16 17:09 09/14/16 17:10 DC 09/14/16 17:30 0.5 MG Ketorolac Tromethamine (Toradol Inj) 30 mg STK-MED ONCE .ROUTE 09/14/16 17:47 09/14/16 17:48 DC 09/14/16 17:47 30 MG Vancomycin HCl 1700 mg/Sodium Chloride 534 ml @ 200 mls/hr Q8@0600,1400,2200 IV 09/15/16 14:00 09/19/16 16:04 DC 09/17/16 05:44 200 MLS/HR Oxycodone/ Acetaminophen (Percocet 5-325mg Tab) 1 tab Q4H PRN PO 09/15/16 14:30 09/17/16 07:54 DC 09/16/16 04:43 1 TAB Oxycodone/ Acetaminophen (Percocet 10-325MG Tab) 1 tab Q4H PRN PO 09/15/16 14:30 09/17/16 07:54 DC 09/17/16 03:55 1 TAB Hydromorphone HCl (Dilaudid Inj) 1 mg Q4H PRN IV 09/16/16 07:05 09/30/16 07:04 09/20/16 10:07 1 MG Metronidazole 500 mg/Prmx 100 ml @ 100 mls/hr Q8H IV 09/16/16 16:00 09/26/16 15:59 09/20/16 09:21 100 MLS/HR Oxycodone HCl (Roxicodone Immediate Rel Tab) 10 mg Q4H PO 09/17/16 08:00 09/17/16 08:40 DC 09/17/16 08:35 10 MG Ketorolac Tromethamine (Toradol Inj) 30 mg Q6H PRN IV 09/17/16 08:45 09/22/16 08:44 09/17/16 15:37 30 MG Tapentadol (Nucynta Er Tab) 50 mg Q12 PO 09/17/16 09:00 10/17/16 08:59 09/20/16 09:21 50 MG Tapentadol (Nucynta Tab) 50 mg Q4H PRN PO 09/17/16 08:45 10/01/16 08:44 09/20/16 09:22 50 MG Fluconazole (Diflucan Tab) 200 mg QAM PO 09/17/16 11:30 09/27/16 11:29 09/20/16 09:21 200 MG Objective Vital Signs Date Time Temp Pulse Resp B/P (MAP) Pulse Ox O2 Delivery O2 Flow Rate FiO2 09/20/16 07:21 Room Air 09/20/16 07:14 36.8 62 16 119/78 (92) 97 Room Air 09/19/16 23:54 Room Air 09/19/16 22:51 36.8 72 18 136/80 (98) 97 Room Air 09/19/16 15:45 Room Air 09/19/16 14:49 36.7 76 16 123/79 (94) 97 Room Air Physical Exam General Appearance: no apparent distress Eyes: normal inspection ENT: normal ENT inspection Neck: supple Respiratory/Chest: normal breath sounds, no respiratory distress, no accessory muscle use Cardiovascular: regular rate, rhythm, no murmur Abdomen: normal bowel sounds, non tender, soft Extremities: normal range of motion, non-tender, no pedal edema, no calf tenderness, + pertinent finding (wound vac noted on left UE, no swelling or erythema around it) Neurologic/Psychiatric: alert, normal mood/affect, oriented x 3 Skin: normal color, warm/dry, no rash Lymphatic: no adenopathy Laboratory Results Results Past 24 Hours Test 09/20/16 05:50 Range/Units White Blood Count 7.49 4.8-10.8 K/uL Red Blood Count 4.69 4.7-6.1 M/uL Hemoglobin 14.7 14.0-18.0 g/dL Hematocrit 42.2 42-52 % Mean Corpuscular Volume 90.0 80-100 fL Mean Corpuscular Hemoglobin 31.3 25-34 pg Mean Corpuscular Hemoglobin Concent 34.8 32-36 g/dl RDW Standard Deviation 42.8 36.4-46.3 fL RDW Coefficient of Variation 13.0 11.5-14.5 % Platelet Count 405 130-400 K/uL Mean Platelet Volume 9.0 7.4-10.4 fL Sodium Level 140 136-145 mmol/L Potassium Level 4.2 3.5-5.1 mmol/L Chloride Level 106 98-107 mmol/L Carbon Dioxide Level 26 21-32 mmol/L Anion Gap 8.0 3-11 mmol/L Blood Urea Nitrogen 18 7-18 mg/dl Creatinine 0.82 0.60-1.40 mg/dl Est Creatinine Clear Calc Drug Dose 139.4 ml/min Estimated GFR () 133.7 Estimated GFR (Non- 115.4 BUN/Creatinine Ratio 22.4 10-20 Random Glucose 92 70-99 mg/dl Calcium Level 8.6 8.5-10.1 mg/dl Assessment and Plan This is a 35 year old male day 4 s/p I&D for purulent cellulitis of the left upper extremity. PLan is for d/c with wound vac however he does not have any insurance so approval is pending Sepsis secondary to left forearm cellulitis - Day 6 s/p I&D for incision and drainage - f/u with surgery one week after d/c - Continue wound vac; wound care recommendations appreciated; needs wound vac as outpatient to be suitable for discharge - Intra-operative Wound culture growing strep species - Abscess cultures polymicrobial with including Staph Aureus, anaerobes and fungi - Continue Rocephin, Fluconazole - Flagyl held as oxacillin sensitive cultures - ID recommendations appreciated - Blood cultures negative to date - Pain control with Tapentadol and dilaudid for breakthrough pain - per pain mx New Hepatitis C Diagnosis - ID consulted; needs to be off IVDU - Transaminitis - Liver U/S reflected cholelithiasis Intravenous Opioid Abuser - Continue Ativan PRN - Echo negative for valvular pathology - Wound vac prevents patient from going to inpatient rehabilitation directly - Pain management recommendations appreciated Tapentadol Dilaudid maintained for breakthrough pain Tobacco abuser - Smoking cessation and nicotine patch DVT Prophylaxis - SCD - Ambulate in hallway Disposition - Med/Surg - Patient continues to need IV antibiotics; currently trying to get outpatient wound vac approved so he can be discharged on oral Abx Continued [facility] stay due to: multiple IV medications needed, other Discharge planning: uncertain
[2016-09-20 12:04] VITALS: BP 147/75; PULSE 101; TEMP 37.3; O2SAT 100
--- NOTE | 2016-09-20 13:58 | Surgery Progress Note ---
Surgery Progress Note Date of Service Sep 20, 2016. Subjective + feeling well pt is doing fine, no C/O, wound culture- alpha-strep. Objective Vital Signs: Date Time Temp Pulse Resp B/P (MAP) Pulse Ox O2 Delivery O2 Flow Rate FiO2 09/20/16 12:04 37.3 101 18 147/75 (99) 100 5.0 09/20/16 07:21 Room Air 09/20/16 07:14 36.8 62 16 119/78 (92) 97 Room Air 09/19/16 23:54 Room Air 09/19/16 22:51 36.8 72 18 136/80 (98) 97 Room Air 09/19/16 15:45 Room Air 09/19/16 14:49 36.7 76 16 123/79 (94) 97 Room Air General Appearance: WD/WN Head: normocephalic Neck: supple, no JVD Respiratory/Chest: chest non-tender, lungs clear Cardiovascular: regular rate, rhythm, no edema Abdomen: normal bowel sounds, non tender Incision(s): clean, dry, intact (on wound vac) Extremities: normal range of motion, non-tender, normal inspection Laboratory Results: Results Past 24 Hours Test 09/20/16 05:50 Range/Units White Blood Count 7.49 4.8-10.8 K/uL Red Blood Count 4.69 4.7-6.1 M/uL Hemoglobin 14.7 14.0-18.0 g/dL Hematocrit 42.2 42-52 % Mean Corpuscular Volume 90.0 80-100 fL Mean Corpuscular Hemoglobin 31.3 25-34 pg Mean Corpuscular Hemoglobin Concent 34.8 32-36 g/dl RDW Standard Deviation 42.8 36.4-46.3 fL RDW Coefficient of Variation 13.0 11.5-14.5 % Platelet Count 405 130-400 K/uL Mean Platelet Volume 9.0 7.4-10.4 fL Sodium Level 140 136-145 mmol/L Potassium Level 4.2 3.5-5.1 mmol/L Chloride Level 106 98-107 mmol/L Carbon Dioxide Level 26 21-32 mmol/L Anion Gap 8.0 3-11 mmol/L Blood Urea Nitrogen 18 7-18 mg/dl Creatinine 0.82 0.60-1.40 mg/dl Est Creatinine Clear Calc Drug Dose 139.4 ml/min Estimated GFR () 133.7 Estimated GFR (Non- 115.4 BUN/Creatinine Ratio 22.4 10-20 Random Glucose 92 70-99 mg/dl Calcium Level 8.6 8.5-10.1 mg/dl Assessment & Plan S/P I/D abscess on left arm, pt is doing fine, continue treatment, will F/U 09/20/2016 doing well, normal WBC continue treatment, will F/U S/P I/D abscess on left arm, pt is doing fine, continue treatment, will F/U
[2016-09-20 15:26] VITALS: BP 122/77; PULSE 88; TEMP 36.8; O2SAT 96
[2016-09-20] MEDS: CEFTRIAXONE SOD INJ 1 GM in DEXTROSE 5% ADD-VANTAGE 50ML 50 ML IV SCH (19:28)
[2016-09-20 22:46] VITALS: BP 106/71; PULSE 94; TEMP 37.2; O2SAT 96
[2016-09-21] MEDS: KETOROLAC TROMETHAMINE 30 MG/ML VIAL IV PRN (00:18)
[2016-09-21] MEDS: HYDROmorphone INJ 1 MG/ML SYR IV PRN ×6 (02:18→23:47)
[2016-09-21 06:50] LABS: HEMATOCRIT 42.2 % (42-52); MEAN CORPUSCULAR HEMOGLOBIN 30.4 pg (25-34); MEAN CORPUSCULAR HGB CONC 34.1 g/dl (32-36); MEAN PLATELET VOLUME 8.7 fL (7.4-10.4); PLATELET COUNT 401 K/uL (130-400); RED BLOOD COUNT 4.74 M/uL (4.7-6.1); WHITE BLOOD COUNT 8.08 K/uL (4.8-10.8)
[2016-09-21 07:18] VITALS: BP 125/82; PULSE 72; TEMP 36.7; O2SAT 98
[2016-09-21 07:25] LABS: BUN/CREATININE RATIO 24.2 (10-20); CALCIUM 8.8 mg/dl (8.5-10.1); CREATININE 0.9 mg/dl (0.60-1.40); POTASSIUM 4.1 mmol/L (3.5-5.1)
[2016-09-21 07:28] LABS: ALB/GLOB RATIO 0.7 (0.9-2)
[2016-09-21 07:31] LABS: BASO % 0.9 %; BASO ABS # 0.07 K/uL (0-0.2); COMPLETE YES; IG% 0.2 %; LYMPH % 54.1 %; LYMPH ABS # 4.37 K/uL (1.2-3.4); MONO % 9.4 %; NEUT % 31.4 %
[2016-09-21] MEDS: NICOTINE 14 MG/24 HR TDSY TD SCH (08:19)
[2016-09-21] MEDS: TAPENTADOL ER 50 MG TABCR PO SCH ×2 (08:20→21:11)
[2016-09-21] MEDS: FLUCONAZOLE 100 MG TAB PO SCH (08:20)
[2016-09-21] MEDS: METRONIDAZOLE 500 MG TAB PO SCH ×2 (10:33→21:11)
--- NOTE | 2016-09-21 11:07 | Infectious Disease Progress Nt ---
Progress Note Date of Service Sep 21, 2016. Subjective Pt evaluation today including: conversation w/ patient, physical exam, chart review, lab review, review of studies, review of inpatient medication list Patient is feeling slightly better, and he states that the pain in his left arm is mildly improved. He is going to have his wound vac changed again today. Images of the wound were reviewed. Liver U/S showed cholelithiasis but no dilatation of the ducts. His cultures ultimately grew Prevotella, MSSA, Actinomyces Turicensis, Yeast, Alpha strep, Beta strep, and Peptostreptococcus. Flagyl was discontinued yesterday. WBC count today was 8.08. LFTs continue to be elevated but are trending down. He is tolerating abx well. All Other Systems: Reviewed and Negative Medications Current Inpatient Medications Medications (Trade) Dose Ordered Sig/Marilee Route Start Time Stop Time Status Last Admin Dose Admin Acetaminophen (Tylenol Tab) 650 mg Q4H PRN PO 09/13/16 21:15 10/13/16 21:14 09/14/16 08:19 650 MG Ondansetron HCl (Zofran Inj) 4 mg Q6H PRN IV 09/13/16 21:15 10/13/16 21:14 09/17/16 19:37 4 MG Ceftriaxone Sodium 1 gm/ Dextrose 50 ml @ 100 mls/hr Q24H IV 09/14/16 19:00 09/23/16 18:59 09/20/16 19:28 100 MLS/HR Albuterol/ Ipratropium (Duoneb) 3 ml Q4R PRN INH 09/13/16 22:00 10/13/16 21:59 Metoprolol Tartrate (Lopressor Tab) 12.5 mg TID PO 09/14/16 09:00 10/14/16 08:59 Future Hold 09/15/16 07:51 12.5 MG Lorazepam 1 mg/ Syringe 1 ml @ 1 mls/min Q2H PRN IV 09/13/16 23:15 10/13/16 23:14 09/17/16 04:13 1 MLS/MIN Nicotine (Nicoderm Cq 14MG Patch) 1 patch QAM TD 09/15/16 09:00 10/15/16 08:59 Miscellaneous (Remove Nicoderm Patch) 1 ea HS N/A 09/14/16 21:00 10/14/16 20:59 09/19/16 21:17 1 EA Hydromorphone HCl (Dilaudid Inj) 1 mg Q4H PRN IV 09/16/16 07:05 09/30/16 07:04 09/21/16 10:26 1 MG Ketorolac Tromethamine (Toradol Inj) 30 mg Q6H PRN IV 09/17/16 08:45 09/22/16 08:44 09/21/16 00:18 30 MG Tapentadol (Nucynta Er Tab) 50 mg Q12 PO 09/17/16 09:00 10/17/16 08:59 09/21/16 08:20 50 MG Tapentadol (Nucynta Tab) 50 mg Q4H PRN PO 09/17/16 08:45 10/01/16 08:44 09/20/16 09:22 50 MG Fluconazole (Diflucan Tab) 200 mg QAM PO 09/17/16 11:30 09/27/16 11:29 09/21/16 08:20 200 MG Metronidazole (Flagyl Tab) 500 mg TID PO 09/21/16 11:00 10/01/16 10:59 09/21/16 10:33 500 MG Objective Vital Signs Date Time Temp Pulse Resp B/P (MAP) Pulse Ox O2 Delivery O2 Flow Rate FiO2 09/21/16 08:20 Room Air 09/21/16 07:18 36.7 72 16 125/82 (96) 98 Room Air 09/21/16 00:10 Room Air 09/20/16 22:46 37.2 94 16 106/71 (83) 96 Room Air 09/20/16 16:15 Room Air 09/20/16 15:26 36.8 88 16 122/77 (92) 96 Room Air 09/20/16 12:04 37.3 101 18 147/75 (99) 100 5.0 Physical Exam General Appearance: WD/WN, no apparent distress Eyes: normal inspection, sclerae normal ENT: hearing grossly normal Neck: supple, trachea midline Respiratory/Chest: no respiratory distress, no accessory muscle use Cardiovascular: regular rate, rhythm Extremities: + pertinent finding (wound vac on left antecubital area. No surrounding tenderness to light palpation. Mild edema) Neurologic/Psychiatric: alert, normal mood/affect Skin: normal color, warm/dry, no rash Laboratory Results RUN DATE: 09/18/16 [facility] LAB PAGE 1 RUN TIME: 1450 Specimen Inquiry PATIENT: BLAS HUNT LOC: [place] U # : [id number] AGE/SX: 35/M ROOM: [facility] REG : 09/13/[address]: Tanya Cornejo M.D. : 1980 BED: 1 DIS : STATUS: ADM IN TLOC: SPEC #: [id number] CRISTIANE: 09/13/16 STATUS: COMP REQ #: [id number] RECD: 09/13/[address]: Chantell Gillette PA- C SOURCE: ABSCESS ENTR: 09/13/[address]: Nasir Gonzalez DO SPDESC: Ascencion APARICIO Roy ., M.D. Shannon, Dennis, M.D. ORDERED: DANIEL ELLIS/TAMMY COMMENTS: Has Specimen Been Obtained/Collected? Y Procedure Result Verified Site GRAM STAIN Final 09/14/16-799 RESULT MANY WBCs SEEN MANY GRAM POSITIVE COCCI MODERATE GRAM NEGATIVE BACILLI DEEP WOUND CULTURE Final 09/18/16-1450 Organism 1 BETA HEMOLYTIC STREP GROUP F QUANITY FEW SENS NON-VIABLE FOR SENSITIVITIES Organism 2 ALPHA STREP. NOT ENTEROCOCCUS QUANITY MANY SENS NO SENSITIVITY TO FOLLOW Organism 3 STAPHYLOCOCCUS AUREUS QUANITY RARE SENS SENSITIVITY TO FOLLOW Organism 4 YEAST NOT FRANCISCO JAVIER ALBICANS QUANITY FEW SENS NO SENSITIVITY TO FOLLOW Organism 5 PREVOTELLA MELANINOGENICA QUANITY FEW SENS NO SENSITIVITY TO FOLLOW Organism 6 ACTINOMYCES TURICENSIS QUANITY MODERATE SENS NO SENSITIVITY TO FOLLOW Organism 7 STAPHYLOCOCCUS AUREUS#2 QUANITY RARE SENS SENSITIVITY TO FOLLOW Organism 8 PREVOTELLA INTERMEDIA QUANITY MANY SENS NO SENSITIVITY TO FOLLOW STAPH AUR STAPH AUR#2 M.I.C. RX M.I.C. RX --------- ------ --------- ------ TRIMET/SULFA <=0.5/9.5 S <=0.5/9.5 S * OXACILLIN 0.5 S <=0.25 S VANCOMYCIN 2 S 1 S ERYTHROMYCIN >4 R >4 R TETRACYCLINE <=4 S >8 R CLINDAMYCIN <=0.5 S <=0.5 R CONTINUED ON NEXT PAGE RUN DATE: 09/18/16 [facility] LAB PAGE 2 RUN TIME: 1450 Specimen Inquiry SPEC: [id number] PATIENT: BLAS HUNT [id number] ( Continued) Procedure Result Verified Site DEEP WOUND CULTURE Final (continued) 09/18/16-1450 STAPH AUR STAPH AUR#2 M.I.C. RX M.I.C. RX --------- ------ --------- ------ DAPTOMYCIN <=0.5 S <=0.5 S 3. STAPHYLOCOCCUS AUREUS Target Route Dose RX AB Cost M.I.C. IQ ------ ----- ------ -- ------ -------- - ------ TRIMET/SULFA S <=0.5/ 9.5 * OXACILLIN S 0.5 VANCOMYCIN S 2 ERYTHROMYCIN R >4 TETRACYCLINE S <=4 CLINDAMYCIN S <=0.5 DAPTOMYCIN S <=0.5 7. STAPHYLOCOCCUS AUREUS#2 Target Route Dose RX AB Cost M.I.C. IQ ------ ----- ------ -- ------ -------- - ------ TRIMET/SULFA S <=0.5/ 9.5 * OXACILLIN S <=0.25 VANCOMYCIN S 1 ERYTHROMYCIN R >4 TETRACYCLINE R >8 CLINDAMYCIN R <=0.5 DAPTOMYCIN S <=0.5 S = SENSITIVE I = INTERMEDIATE R = RESISTANT Item Value Date Time Gram Stain - Final Resulted 09/14/16 Tissue Arm Gram Stain - Final Resulted 09/13/162014 Abscess Arm , Left Lower Blood Culture - Preliminary Resulted 5/28/17 1933 Blood NO GROWTH TO DATE. Blood Culture - Preliminary Resulted 09/13/16 1840 Blood NO GROWTH TO DATE. Gram Stain - Final Complete 09/14/16 0000 Tissue Arm Gram Stain - Final Complete 09/13/16 2015 Abscess Arm , Left Lower Blood Culture - Final Complete 09/13/16 1933 Blood NO GROWTH Blood Culture - Final Complete 09/13/16 1840 Blood NO GROWTH Last 24 Hours Test 09/21/16 06:32 White Blood Count 8.08 K/uL Red Blood Count 4.74 M/uL Hemoglobin 14.4 g/dL Hematocrit 42.2 % Mean Corpuscular Volume 89.0 fL Mean Corpuscular Hemoglobin 30.4 pg Mean Corpuscular Hemoglobin Concent 34.1 g/dl Platelet Count 401 K/uL Mean Platelet Volume 8.7 fL Neutrophils (%) (Auto) 31.4 % Lymphocytes (%) (Auto) 54.1 % Monocytes (%) (Auto) 9.4 % Eosinophils (%) (Auto) 4.0 % Basophils (%) (Auto) 0.9 % Neutrophils # (Auto) 2.54 K/uL Lymphocytes # (Auto) 4.37 K/uL Monocytes # (Auto) 0.76 K/uL Eosinophils # (Auto) 0.32 K/uL Basophils # (Auto) 0.07 K/uL RDW Standard Deviation 42.0 fL RDW Coefficient of Variation 12.8 % Immature Granulocyte % (Auto) 0.2 % Immature Granulocyte # (Auto) 0.02 K/uL Sodium Level 140 mmol/L Potassium Level 4.1 mmol/L Chloride Level 105 mmol/L Carbon Dioxide Level 29 mmol/L Anion Gap 6.0 mmol/L Blood Urea Nitrogen 22 mg/dl Creatinine 0.90 mg/dl Est Creatinine Clear Calc Drug Dose 127.0 ml/min Estimated GFR () 128.7 Estimated GFR (Non- 111.0 BUN/Creatinine Ratio 24.2 Random Glucose 95 mg/dl Calcium Level 8.8 mg/dl Total Bilirubin 0.2 mg/dl Aspartate Amino Transf (AST/SGOT) 179 U/L Alanine Aminotransferase (ALT/SGPT) 497 U/L Alkaline Phosphatase 167 U/L Total Protein 7.6 gm/dl Albumin 3.2 gm/dl Globulin 4.4 gm/dl Albumin/Globulin Ratio 0.7 Assessment and Plan Patient is an IV drug user with large left forearm abscess with polymicrobial infection and new diagnosis of Hepatitis C. The patient has MSSA, anaerobic gram negative bacilli, yeast, strep, and multiple organisms growing from abscess culture. The patient is currently on IV Ceftriaxone and Fluconazole. Flagyl was discontinued yesterday. I feel that this patient does need continued therapy with Flagyl due to multiple different anaerobic organisms in culture. Therefore, have added PO Flagyl again to the patient's regimen. Ultimately, this patient is not a candidate for PICC line due to active IVDA. This patient would be a good candidate for IV Dalbavancin 1500 mg Q 2 weeks which would cover for the MSSA and strep growing in culture. He would need continued PO therapy with Flagyl and Fluconazole as well. Unfortunately, this patient does not have insurance coverage. I spoke with case management and they will discuss this patient's case to see what his options are. May have to send him home on PO abx therapy if coverage is not available, but that is not ideal. We will follow. Plan: 1. Restart Flagyl 2. Continue Ceftriaxone and Fluconazole pending coverage options as outpatient PROVIDER ADDENDUM: Patient reviewed with Ms. Purvis. Agree with above assessment.
[2016-09-21] MEDS: LORAZEPAM INJ 1 MG in SYRINGE 0.5 ML IV PRN (12:25)
--- NOTE | 2016-09-21 13:32 | Surgery Progress Note ---
Surgery Progress Note Date of Service Sep 21, 2016. Subjective Post OP Day: 7 + bowel movement, + flatus, + diet, No nausea, No vomiting Patient sitting up in bed- reports that his pain has improved since last week. He is unsure of his discharge plan at this time. He is tolerating his diet. He denies nausea or vomiting. Objective Vital Signs: Date Time Temp Pulse Resp B/P (MAP) Pulse Ox O2 Delivery O2 Flow Rate FiO2 09/21/16 08:20 Room Air 09/21/16 07:18 36.7 72 16 125/82 (96) 98 Room Air 09/21/16 00:10 Room Air 09/20/16 22:46 37.2 94 16 106/71 (83) 96 Room Air 09/20/16 16:15 Room Air 09/20/16 15:26 36.8 88 16 122/77 (92) 96 Room Air General Appearance: WD/WN, no apparent distress Abdomen: normal bowel sounds, non tender, non distended, soft Incision(s): clean, intact (wound vac in place. ) Laboratory Results: Results Past 24 Hours Test 09/21/16 06:32 Range/Units White Blood Count 8.08 4.8-10.8 K/uL Red Blood Count 4.74 4.7-6.1 M/uL Hemoglobin 14.4 14.0-18.0 g/dL Hematocrit 42.2 42-52 % Mean Corpuscular Volume 89.0 80-100 fL Mean Corpuscular Hemoglobin 30.4 25-34 pg Mean Corpuscular Hemoglobin Concent 34.1 32-36 g/dl Platelet Count 401 130-400 K/uL Mean Platelet Volume 8.7 7.4-10.4 fL Neutrophils (%) (Auto) 31.4 % Lymphocytes (%) (Auto) 54.1 % Monocytes (%) (Auto) 9.4 % Eosinophils (%) (Auto) 4.0 % Basophils (%) (Auto) 0.9 % Neutrophils # (Auto) 2.54 1.4-6.5 K/uL Lymphocytes # (Auto) 4.37 1.2-3.4 K/uL Monocytes # (Auto) 0.76 0.11-0.59 K/uL Eosinophils # (Auto) 0.32 0-0.5 K/uL Basophils # (Auto) 0.07 0-0.2 K/uL RDW Standard Deviation 42.0 36.4-46.3 fL RDW Coefficient of Variation 12.8 11.5-14.5 % Immature Granulocyte % (Auto) 0.2 % Immature Granulocyte # (Auto) 0.02 0.00-0.02 K/uL Sodium Level 140 136-145 mmol/L Potassium Level 4.1 3.5-5.1 mmol/L Chloride Level 105 98-107 mmol/L Carbon Dioxide Level 29 21-32 mmol/L Anion Gap 6.0 3-11 mmol/L Blood Urea Nitrogen 22 7-18 mg/dl Creatinine 0.90 0.60-1.40 mg/dl Est Creatinine Clear Calc Drug Dose 127.0 ml/min Estimated GFR () 128.7 Estimated GFR (Non- 111.0 BUN/Creatinine Ratio 24.2 10-20 Random Glucose 95 70-99 mg/dl Calcium Level 8.8 8.5-10.1 mg/dl Total Bilirubin 0.2 0.2-1 mg/dl Aspartate Amino Transf (AST/SGOT) 179 15-37 U/L Alanine Aminotransferase (ALT/SGPT) 497 12-78 U/L Alkaline Phosphatase 167 45-117 U/L Total Protein 7.6 6.4-8.2 gm/dl Albumin 3.2 3.4-5.0 gm/dl Globulin 4.4 2.5-4.0 gm/dl Albumin/Globulin Ratio 0.7 0.9-2 Assessment & Plan POD #7- s/p Incision and Drainage Left Forearm and upper arm Abscess. Patient reports that his pain has improved in his left arm. Reviewed patient's liver ultrasound, which showed cholelithiasis with no ductal dilatation. Patient denies RUQ pain. Patient's discharge plan is not known at this time. Patient was seen by ID today- will manage patient's antibiotics. Once patient is discharged, will we will see him in the general surgery clinic. POD #3 s/p Incision and Drainage Left Forearm and upper arm Abscess. Patient afebrile. Pain slowly improving. Wound vac in place- patient is followed by wound care. Patient to go to outpatient rehab- unable to go to inpatient rehab with wound vac in place. From a surgical standpoint patient is doing well- will sign off on his care. Patient is to follow-up with Dr. Momin in the office in 1 week after discharge. Please contact us with any questions or concerns. POD #2 s/p Incision and Drainage Left Forearm and upper arm Abscess. Patient afebrile. No issues overnight. Family Medicine added Percocet for breakthrough pain- patient is still using Dilaudid regularly. Reports tiny improvement in pain. Will consult pain management- Dr. Momin to speak with Dr. Tellez. Wound care was to see patient yesterday- patient was unable to tolerate exam for wound vac. Will continue to defer to wound care for wound management. Patient intends to go to Rehab after discharge- waiting for evaluation today. Dr. Momin in to see and examine patient. POD #1 s/p Incision and Drainage Left Forearm and upper arm Abscess. Goal- Pain control. Waiting for wound care consultation. Continue IV antibiotics. Vital signs stable. Patient is tolerating diet. Will continue to follow.
--- NOTE | 2016-09-21 13:58 | Family Medicine Progress Note ---
Progress Note Date of Service Sep 21, 2016. Subjective Pt evaluation today including: conversation w/ patient, physical exam, chart review, lab review Pain: Controllecd Voiding: no voiding problems, no incontinence No issues over weekend Flagyl discontinued Surgery and ID following Pain is overall controlled on current regimen Awaiting disposition plan given need for outpt wound vac Medications Current Inpatient Medications Medications (Trade) Dose Ordered Sig/Marilee Route Start Time Stop Time Status Last Admin Dose Admin Acetaminophen (Tylenol Tab) 650 mg Q4H PRN PO 09/13/16 21:15 10/13/16 21:14 09/14/16 08:19 650 MG Ondansetron HCl (Zofran Inj) 4 mg Q6H PRN IV 09/13/16 21:15 10/13/16 21:14 09/17/16 19:37 4 MG Ceftriaxone Sodium 1 gm/ Dextrose 50 ml @ 100 mls/hr Q24H IV 09/14/16 19:00 09/23/16 18:59 09/20/16 19:28 100 MLS/HR Albuterol/ Ipratropium (Duoneb) 3 ml Q4R PRN INH 09/13/16 22:00 10/13/16 21:59 Metoprolol Tartrate (Lopressor Tab) 12.5 mg TID PO 09/14/16 09:00 10/14/16 08:59 Future Hold 09/15/16 07:51 12.5 MG Lorazepam 1 mg/ Syringe 1 ml @ 1 mls/min Q2H PRN IV 09/13/16 23:15 10/13/16 23:14 09/21/16 12:25 1 MLS/MIN Nicotine (Nicoderm Cq 14MG Patch) 1 patch QAM TD 09/15/16 09:00 10/15/16 08:59 Miscellaneous (Remove Nicoderm Patch) 1 ea HS N/A 09/14/16 21:00 10/14/16 20:59 09/19/16 21:17 1 EA Hydromorphone HCl (Dilaudid Inj) 1 mg Q4H PRN IV 09/16/16 07:05 09/30/16 07:04 09/21/16 10:26 1 MG Ketorolac Tromethamine (Toradol Inj) 30 mg Q6H PRN IV 09/17/16 08:45 09/22/16 08:44 09/21/16 00:18 30 MG Tapentadol (Nucynta Er Tab) 50 mg Q12 PO 09/17/16 09:00 10/17/16 08:59 09/21/16 08:20 50 MG Tapentadol (Nucynta Tab) 50 mg Q4H PRN PO 09/17/16 08:45 10/01/16 08:44 09/20/16 09:22 50 MG Fluconazole (Diflucan Tab) 200 mg QAM PO 09/17/16 11:30 09/27/16 11:29 09/21/16 08:20 200 MG Metronidazole (Flagyl Tab) 500 mg TID PO 09/21/16 11:00 10/01/16 10:59 09/21/16 10:33 500 MG Objective Vital Signs Date Time Temp Pulse Resp B/P (MAP) Pulse Ox O2 Delivery O2 Flow Rate FiO2 09/21/16 08:20 Room Air 09/21/16 07:18 36.7 72 16 125/82 (96) 98 Room Air 09/21/16 00:10 Room Air 09/20/16 22:46 37.2 94 16 106/71 (83) 96 Room Air 09/20/16 16:15 Room Air 09/20/16 15:26 36.8 88 16 122/77 (92) 96 Room Air Physical Exam General Appearance: WD/WN, no apparent distress Eyes: normal inspection, EOMI ENT: hearing grossly normal, pharynx normal Neck: supple, no adenopathy, no JVD Respiratory/Chest: chest non-tender, + pertinent finding (coarse breath sounds at baseline) Cardiovascular: regular rate, rhythm, no gallop, no murmur Abdomen: normal bowel sounds, non tender, soft Extremities: non-tender, no pedal edema, + pertinent finding (wound vac left upper extremity; no purulence or exudate noted; no surrounding erythema) Neurologic/Psychiatric: alert, normal mood/affect, oriented x 3 Skin: normal color, warm/dry, no rash Lymphatic: no adenopathy Laboratory Results Last 24 Hours Test 09/21/16 06:32 White Blood Count 8.08 K/uL Red Blood Count 4.74 M/uL Hemoglobin 14.4 g/dL Hematocrit 42.2 % Mean Corpuscular Volume 89.0 fL Mean Corpuscular Hemoglobin 30.4 pg Mean Corpuscular Hemoglobin Concent 34.1 g/dl Platelet Count 401 K/uL Mean Platelet Volume 8.7 fL Neutrophils (%) (Auto) 31.4 % Lymphocytes (%) (Auto) 54.1 % Monocytes (%) (Auto) 9.4 % Eosinophils (%) (Auto) 4.0 % Basophils (%) (Auto) 0.9 % Neutrophils # (Auto) 2.54 K/uL Lymphocytes # (Auto) 4.37 K/uL Monocytes # (Auto) 0.76 K/uL Eosinophils # (Auto) 0.32 K/uL Basophils # (Auto) 0.07 K/uL RDW Standard Deviation 42.0 fL RDW Coefficient of Variation 12.8 % Immature Granulocyte % (Auto) 0.2 % Immature Granulocyte # (Auto) 0.02 K/uL Sodium Level 140 mmol/L Potassium Level 4.1 mmol/L Chloride Level 105 mmol/L Carbon Dioxide Level 29 mmol/L Anion Gap 6.0 mmol/L Blood Urea Nitrogen 22 mg/dl Creatinine 0.90 mg/dl Est Creatinine Clear Calc Drug Dose 127.0 ml/min Estimated GFR () 128.7 Estimated GFR (Non- 111.0 BUN/Creatinine Ratio 24.2 Random Glucose 95 mg/dl Calcium Level 8.8 mg/dl Total Bilirubin 0.2 mg/dl Aspartate Amino Transf (AST/SGOT) 179 U/L Alanine Aminotransferase (ALT/SGPT) 497 U/L Alkaline Phosphatase 167 U/L Total Protein 7.6 gm/dl Albumin 3.2 gm/dl Globulin 4.4 gm/dl Albumin/Globulin Ratio 0.7 Assessment and Plan This is a 35 year old male with resolving purulent cellulitis of the left upper extremity. Currently needs to remain for inpatient IV antibiotic treatment and will ultimately require discharge on wound vac. Purulent left-upper extremity cellulitis - Day 7 s/p I&D by surgery Surgical recommendations appreciated; will see as outpatient 1 week after discharge - Polymicrobial growth; needs continued broad spectrum Abx Resume Flagyl Continue Rocephin and Fluconazole Transition to oral regimen once outpatient wound management in place - Blood cultures negative to date - Pain controlled on current regimen; no changes today New Hepatitis C Diagnosis - ID consulted; needs to be off IVDU 6 months before he can get treatment - Transaminitis being monitored; AST > ALT favoring the viral etiology - Liver U/S reflected cholelithiasis - Trend daily CMP - Will order Hep A and Hep B vaccinations - Pneumovax 23 indicated due to evidence of chronic liver disease Intravenous Opioid Abuser - Continue Ativan PRN - Echo negative for valvular pathology - Wound vac prevents patient from going to inpatient rehabilitation directly - Pain management recommendations appreciated Tapentadol; Dilaudid maintained for breakthrough pain Tobacco abuser - Smoking cessation and nicotine patch DVT Prophylaxis - SCD - Ambulate in hallway Disposition - Med/Surg - Patient continues to need IV antibiotics - Needs wound vac at discharge for surgical site management. Resident Physician Supervision Note: I was present with PGY2 Dr. Heriberto Holley during the history and exam. I discussed the case with the resident and agree with the findings and plan as documented in the note. Any exceptions or clarifications are listed here: none. Pt w/ complaints of difficulty extending left arm. Otherwise no dyspnea, abd pain, diarrhea. Woundvac remains in place on LUE. VSS no fever gen - restricted affect heart - RRR, s1, s2 lungs - CTA b/l abd - soft, no HSM ext - LUE wound vac in place, no surrounding erythema musculo - difficult for patient to actively extend the left arm at the elbow A/P: LUE abscess s/p extensive debridement and I/D by surgery. Cont IV rocephin; restart flagyl; cont diflucan. Cont woundvac. SW to assist with outpatient placement of woundvac. PT, OT to help with developing contracture of left arm. HepC 2nd to IV drug abuse - give HepA and HepB vaccines along with pneumovax. ID to see after d/c to address HepC. Jonelle BEJARANO MD
[2016-09-21] MEDS ORDERED: PNEUMOCOCCAL ADMINISTRATION CHARGE ONE (14:00)
[2016-09-21] MEDS ORDERED: HEPATITIS B ADULT VACCINE INJ 10 MCG/1ML VIAL IM. ONE (15:00)
[2016-09-21 15:17] VITALS: BP 125/81; PULSE 97; TEMP 36.5; O2SAT 98
[2016-09-21] MEDS ORDERED: PNEUMOCOCCAL POLYSACCHARIDES 25 MCG/0.5 ML VIAL/SYR IM. ONE (15:30)
[2016-09-21] MEDS: CEFTRIAXONE SOD INJ 1 GM in DEXTROSE 5% ADD-VANTAGE 50ML 50 ML IV SCH (18:46)
[2016-09-21 23:23] VITALS: BP 124/77; PULSE 90; TEMP 37.2; O2SAT 97
[2016-09-22 05:22] LABS: MEAN CELL VOLUME 88.7 fL (80-100); MEAN CORPUSCULAR HEMOGLOBIN 30.3 pg (25-34); MEAN CORPUSCULAR HGB CONC 34.1 g/dl (32-36); MEAN PLATELET VOLUME 8.7 fL (7.4-10.4); PLATELET COUNT 408 K/uL (130-400); RED BLOOD COUNT 4.62 M/uL (4.7-6.1); WHITE BLOOD COUNT 8.53 K/uL (4.8-10.8)
[2016-09-22 05:47] LABS: BUN/CREATININE RATIO 28.1 (10-20); CALCIUM 8.6 mg/dl (8.5-10.1); CREATININE 0.87 mg/dl (0.60-1.40); POTASSIUM 4.4 mmol/L (3.5-5.1)
[2016-09-22 05:50] LABS: ALB/GLOB RATIO 0.8 (0.9-2)
[2016-09-22] MEDS: HYDROmorphone INJ 1 MG/ML SYR IV PRN ×3 (06:44→14:06)
[2016-09-22 07:19] VITALS: BP 101/65; PULSE 65; TEMP 36.6; O2SAT 96
--- NOTE | 2016-09-22 07:38 | SURGERY PROGRESS NOTE ---
DATE: 09/22/2016 The patient is approximately 8 days postop I&D of the left upper arm, left forearm abscess. VAC system has been in place. The patient's pain seems to be well tolerated. He is having no discomfort. There is no cellulitis or any edema in the left upper arm. He has good function of the left upper extremity and good hand guide rail cleaner. The last temperature is 37.2, pulse 90, respirations 18, blood pressure 124/77, O2 sats 97 on room air. LABORATORY: This morning his white count is 8.53, hemoglobin is 14. Liver function tests are slightly decreasing. Known that he has cholelithiasis, this was discussed with the patient. He is pretty much asymptomatic, but I did enforce him to stay away from certain foods mainly, fried foods, spicy foods, and fatty foods. At this point, we certainly will leave that alone. If any symptoms did develop in that cholelithiasis must be addressed. From my point of view, the patient can be discharged at the discretion of the primary service and infectious disease and follow up with wound care. There is no need to follow up with us unless new issues arise. At this point, we will sign off. MIKEY
[2016-09-22] MEDS: NICOTINE 14 MG/24 HR TDSY TD SCH (09:00)
--- NOTE | 2016-09-22 09:06 | Family Medicine Progress Note ---
Progress Note Date of Service Sep 22, 2016. Subjective Pt evaluation today including: conversation w/ patient, physical exam, chart review, lab review Pain: Controlled Voiding: no voiding problems No acute issues overnight Wound continues to heal; Additional Comments: A 10 point review of systems was negative unless stated above. Medications Current Inpatient Medications Medications (Trade) Dose Ordered Sig/Marilee Route Start Time Stop Time Status Last Admin Dose Admin Acetaminophen (Tylenol Tab) 650 mg Q4H PRN PO 09/13/16 21:15 10/13/16 21:14 09/14/16 08:19 650 MG Ondansetron HCl (Zofran Inj) 4 mg Q6H PRN IV 09/13/16 21:15 10/13/16 21:14 09/17/16 19:37 4 MG Ceftriaxone Sodium 1 gm/ Dextrose 50 ml @ 100 mls/hr Q24H IV 09/14/16 19:00 09/23/16 18:59 09/21/16 18:46 100 MLS/HR Albuterol/ Ipratropium (Duoneb) 3 ml Q4R PRN INH 09/13/16 22:00 10/13/16 21:59 Metoprolol Tartrate (Lopressor Tab) 12.5 mg TID PO 09/14/16 09:00 10/14/16 08:59 Future Hold 09/15/16 07:51 12.5 MG Lorazepam 1 mg/ Syringe 1 ml @ 1 mls/min Q2H PRN IV 09/13/16 23:15 10/13/16 23:14 09/21/16 12:25 1 MLS/MIN Nicotine (Nicoderm Cq 14MG Patch) 1 patch QAM TD 09/15/16 09:00 10/15/16 08:59 Miscellaneous (Remove Nicoderm Patch) 1 ea HS N/A 09/14/16 21:00 10/14/16 20:59 09/19/16 21:17 1 EA Hydromorphone HCl (Dilaudid Inj) 1 mg Q4H PRN IV 09/16/16 07:05 09/30/16 07:04 09/22/16 06:44 1 MG Tapentadol (Nucynta Er Tab) 50 mg Q12 PO 09/17/16 09:00 10/17/16 08:59 09/21/16 21:11 50 MG Tapentadol (Nucynta Tab) 50 mg Q4H PRN PO 09/17/16 08:45 10/01/16 08:44 09/20/16 09:22 50 MG Fluconazole (Diflucan Tab) 200 mg QAM PO 09/17/16 11:30 09/27/16 11:29 09/21/16 08:20 200 MG Metronidazole (Flagyl Tab) 500 mg TID PO 09/21/16 11:00 10/01/16 10:59 09/21/16 21:11 500 MG Objective Vital Signs Date Time Temp Pulse Resp B/P (MAP) Pulse Ox O2 Delivery O2 Flow Rate FiO2 09/22/16 07:19 36.6 65 12 101/65 (77) 96 Room Air 09/21/16 23:23 37.2 90 18 124/77 (93) 97 Room Air 09/21/16 19:50 Room Air 09/21/16 15:17 36.5 97 18 125/81 (96) 98 Room Air Physical Exam General Appearance: WD/WN, no apparent distress Eyes: normal inspection, EOMI ENT: hearing grossly normal, pharynx normal Neck: supple, no adenopathy, no JVD Respiratory/Chest: no respiratory distress, no accessory muscle use, + pertinent finding (expiratory wheezing at bases bilaterally; per baseline) Cardiovascular: regular rate, rhythm, no gallop, no murmur Abdomen: normal bowel sounds, non tender, soft Extremities: non-tender, no pedal edema Neurologic/Psychiatric: alert, normal mood/affect, oriented x 3 Skin: normal color, warm/dry, no rash Lymphatic: no adenopathy Laboratory Results Last 24 Hours Test 09/22/16 05:10 White Blood Count 8.53 K/uL Red Blood Count 4.62 M/uL Hemoglobin 14.0 g/dL Hematocrit 41.0 % Mean Corpuscular Volume 88.7 fL Mean Corpuscular Hemoglobin 30.3 pg Mean Corpuscular Hemoglobin Concent 34.1 g/dl RDW Standard Deviation 41.6 fL RDW Coefficient of Variation 12.8 % Platelet Count 408 K/uL Mean Platelet Volume 8.7 fL Sodium Level 141 mmol/L Potassium Level 4.4 mmol/L Chloride Level 107 mmol/L Carbon Dioxide Level 27 mmol/L Anion Gap 7.0 mmol/L Blood Urea Nitrogen 24 mg/dl Creatinine 0.87 mg/dl Est Creatinine Clear Calc Drug Dose 131.3 ml/min Estimated GFR () 130.5 Estimated GFR (Non- 112.6 BUN/Creatinine Ratio 28.1 Random Glucose 92 mg/dl Calcium Level 8.6 mg/dl Total Bilirubin 0.1 mg/dl Aspartate Amino Transf (AST/SGOT) 161 U/L Alanine Aminotransferase (ALT/SGPT) 434 U/L Alkaline Phosphatase 159 U/L Total Protein 7.2 gm/dl Albumin 3.1 gm/dl Globulin 4.1 gm/dl Albumin/Globulin Ratio 0.8 Assessment and Plan This is a 35 year old male with resolving purulent cellulitis of the left upper extremity. He is now Day 8 s/p I&D and remains on IV antibiotics. Purulent left-upper extremity cellulitis - S/p I&D Day 8 and doing well - No acute issues per surgery, have signed off at this point; recommendations appreciated; will get f/u outpatient at discharge - Continue Antibiotics: Flagyl, Rocephin and Fluconazole at current doses ID following and recommendations appreciated - Pain controlled on current regimen; no changes today New Hepatitis C Diagnosis - ID consulted; needs to be off IVDU 6 months before he can get treatment - Transaminitis improving gradually: AST 434 and ALT 161 - Liver U/S reflected cholelithiasis - Follow CMP - Hep B and Pneumvax doses vaccinations given yesterday Intravenous Opioid Abuser - Continue Ativan PRN - Echo negative for valvular pathology - Wound vac prevents patient from going to inpatient rehabilitation directly - Pain management recommendations appreciated Tapentadol; Dilaudid maintained for breakthrough pain Tobacco abuser - Smoking cessation and nicotine patch DVT Prophylaxis - SCD - Ambulate in hallway Disposition - Med/Surg - Remains inpatient until outpatient wound vac can be arranged Resident Physician Supervision Note: I was present with PGY2 Dr. Heriberto Holley during the history and exam. I discussed the case with the resident and agree with the findings and plan as documented in the note. Any exceptions or clarifications are listed here: none. PT upset that the IV dilaudid was discontinued. He also says "I don't want to go to a methadone clinic." No new issues. SW working on securing outpatient woundvac services. VSS no fever gen - restricted affect heart - RRR, s1, s2 lungs - CTA b/l abd - soft, no HSM ext - LUE wound vac in place, no surrounding erythema A/P: LUE abscess s/p extensive debridement and I/D by surgery. Cont IV rocephin but transition to PO clindamycin & diflucan at d/c. SW to assist with outpatient placement of woundvac. PT, OT to help with developing contracture of left arm. HepC 2nd to IV drug abuse - s/p HepB vaccine along with pneumovax yesterday; also needs HepA in future. ID to see after d/c to address HepC. Pain control - lengthy discussion held with patient about needing to transition to oral pain meds given impending discharge. Will adjust nucynta dosing as needed for optimal control. Agree with pain management that methadone clinic is his best option for recovery from his heroine addiction. Jonelle BEJARANO MD
[2016-09-22] MEDS: METRONIDAZOLE 500 MG TAB PO SCH ×3 (09:10→20:47)
[2016-09-22] MEDS: FLUCONAZOLE 100 MG TAB PO SCH (09:10)
[2016-09-22] MEDS: TAPENTADOL ER 50 MG TABCR PO SCH ×2 (09:16→20:47)
--- NOTE | 2016-09-22 11:09 | Infectious Disease Progress Nt ---
Progress Note Date of Service Sep 22, 2016. Subjective Pt evaluation today including: conversation w/ patient, conversation w/ family (mother), physical exam, chart review, lab review, review of studies, conversation w/ home planning consultant salesperson, review of inpatient medication list Patient is having some increased pain in the left arm due to PT this morning. His WBC count today was 8.53. He is tolerating his abx therapy well. He denies N /V/D. He continues to have left arm wound vac in place. Creatinine was stable at 0.87. Cultures finalized with multiple organisms. Blood cultures finalized with no growth. I did review the patient's wound images from yesterday- appears slightly improved. I did also discuss this patient with Dr. Holley. All Other Systems: Reviewed and Negative Medications Current Inpatient Medications Medications (Trade) Dose Ordered Sig/Marilee Route Start Time Stop Time Status Last Admin Dose Admin Acetaminophen (Tylenol Tab) 650 mg Q4H PRN PO 09/13/16 21:15 10/13/16 21:14 09/14/16 08:19 650 MG Ondansetron HCl (Zofran Inj) 4 mg Q6H PRN IV 09/13/16 21:15 10/13/16 21:14 09/17/16 19:37 4 MG Ceftriaxone Sodium 1 gm/ Dextrose 50 ml @ 100 mls/hr Q24H IV 09/14/16 19:00 09/23/16 18:59 09/21/16 18:46 100 MLS/HR Albuterol/ Ipratropium (Duoneb) 3 ml Q4R PRN INH 09/13/16 22:00 10/13/16 21:59 Metoprolol Tartrate (Lopressor Tab) 12.5 mg TID PO 09/14/16 09:00 10/14/16 08:59 Future Hold 09/15/16 07:51 12.5 MG Lorazepam 1 mg/ Syringe 1 ml @ 1 mls/min Q2H PRN IV 09/13/16 23:15 10/13/16 23:14 09/21/16 12:25 1 MLS/MIN Nicotine (Nicoderm Cq 14MG Patch) 1 patch QAM TD 09/15/16 09:00 10/15/16 08:59 Miscellaneous (Remove Nicoderm Patch) 1 ea HS N/A 09/14/16 21:00 10/14/16 20:59 09/19/16 21:17 1 EA Hydromorphone HCl (Dilaudid Inj) 1 mg Q4H PRN IV 09/16/16 07:05 09/30/16 07:04 09/22/16 10:02 1 MG Tapentadol (Nucynta Er Tab) 50 mg Q12 PO 09/17/16 09:00 10/17/16 08:59 09/22/16 09:16 50 MG Tapentadol (Nucynta Tab) 50 mg Q4H PRN PO 09/17/16 08:45 10/01/16 08:44 09/20/16 09:22 50 MG Fluconazole (Diflucan Tab) 200 mg QAM PO 09/17/16 11:30 09/27/16 11:29 09/22/16 09:10 200 MG Metronidazole (Flagyl Tab) 500 mg TID PO 09/21/16 11:00 10/01/16 10:59 09/22/16 09:10 500 MG Ceftriaxone Sodium 1 gm/ Dextrose 50 ml @ 100 mls/hr Q24H IV 09/23/16 19:00 10/03/16 18:59 Objective Vital Signs Date Time Temp Pulse Resp B/P (MAP) Pulse Ox O2 Delivery O2 Flow Rate FiO2 09/22/16 07:19 36.6 65 12 101/65 (77) 96 Room Air 09/21/16 23:23 37.2 90 18 124/77 (93) 97 Room Air 09/21/16 19:50 Room Air 09/21/16 15:17 36.5 97 18 125/81 (96) 98 Room Air Physical Exam General Appearance: WD/WN, no apparent distress Eyes: normal inspection, sclerae normal ENT: hearing grossly normal Neck: supple, trachea midline Respiratory/Chest: no respiratory distress, no accessory muscle use Cardiovascular: regular rate, rhythm Extremities: + pertinent finding (left arm with wound vac in place.) Neurologic/Psychiatric: alert, normal mood/affect Skin: warm/dry, no rash Laboratory Results Item Value Date Time Gram Stain - Final Complete 09/14/16 0000 Tissue Arm Gram Stain - Final Complete 09/13/16 2015 Abscess Arm , Left Lower Blood Culture - Final Complete 09/13/16 1933 Blood NO GROWTH Blood Culture - Final Complete 09/13/16 1840 Blood NO GROWTH Last 24 Hours Test 09/22/16 05:10 White Blood Count 8.53 K/uL Red Blood Count 4.62 M/uL Hemoglobin 14.0 g/dL Hematocrit 41.0 % Mean Corpuscular Volume 88.7 fL Mean Corpuscular Hemoglobin 30.3 pg Mean Corpuscular Hemoglobin Concent 34.1 g/dl RDW Standard Deviation 41.6 fL RDW Coefficient of Variation 12.8 % Platelet Count 408 K/uL Mean Platelet Volume 8.7 fL Sodium Level 141 mmol/L Potassium Level 4.4 mmol/L Chloride Level 107 mmol/L Carbon Dioxide Level 27 mmol/L Anion Gap 7.0 mmol/L Blood Urea Nitrogen 24 mg/dl Creatinine 0.87 mg/dl Est Creatinine Clear Calc Drug Dose 131.3 ml/min Estimated GFR () 130.5 Estimated GFR (Non- 112.6 BUN/Creatinine Ratio 28.1 Random Glucose 92 mg/dl Calcium Level 8.6 mg/dl Total Bilirubin 0.1 mg/dl Aspartate Amino Transf (AST/SGOT) 161 U/L Alanine Aminotransferase (ALT/SGPT) 434 U/L Alkaline Phosphatase 159 U/L Total Protein 7.2 gm/dl Albumin 3.1 gm/dl Globulin 4.1 gm/dl Albumin/Globulin Ratio 0.8 Assessment and Plan Patient is an IV drug user with large left forearm abscess with polymicrobial infection and new diagnosis of Hepatitis C. The patient has MSSA, anaerobic gram negative bacilli, yeast, strep, and multiple organisms growing from abscess culture. The patient is currently on IV Ceftriaxone, Fluconazole, and Flagyl. Discussed that best case scenario, would prefer to start this patient on IV Dalbavancin (along with Flagyl, fluconazole) but unsure whether or not that would be well covered with the patient's possible new [place] insurance. Therefore, feel that the patient could otherwise be discharge on PO Clindamycin 300 mg TID to cover for MSSA, strep, and anaerobes along with PO Fluconazole to cover yeast. The patient very likely will need at least 2 weeks until follow up with ID/Wound care. We will continue to follow. PROVIDER ADDENDUM patient reviewed with Ms. Purvis. Agree with above assessment.
[2016-09-22] MEDS: LORAZEPAM INJ 1 MG in SYRINGE 0.5 ML IV PRN (13:10)
[2016-09-22] MEDS ORDERED: TAPENTADOL ER 50 MG TABCR PO ONE (14:30)
[2016-09-22 15:00] VITALS: BP 106/71; PULSE 100; TEMP 36.8; O2SAT 97
[2016-09-22] MEDS: CEFTRIAXONE SOD INJ 1 GM in DEXTROSE 5% ADD-VANTAGE 50ML 50 ML IV SCH (19:45)
[2016-09-22] MEDS: OXYCODONE HCL 20 MG TABCR (OXYCONTIN) PO SCH (20:47)
[2016-09-22 23:20] VITALS: BP 99/66; PULSE 88; TEMP 37; O2SAT 97
[2016-09-23] MEDS: LORAZEPAM INJ 1 MG in SYRINGE 0.5 ML IV PRN ×2 (00:09→07:48)
[2016-09-23] MEDS: TAPENTADOL HCL 50 MG TAB PO PRN ×3 (00:09→16:05)
[2016-09-23 07:07] VITALS: BP 111/79; PULSE 77; TEMP 36.8; O2SAT 97
[2016-09-23] MEDS: NICOTINE 14 MG/24 HR TDSY TD SCH (07:47)
[2016-09-23] MEDS: TAPENTADOL ER 50 MG TABCR PO SCH ×2 (09:13→20:53)
[2016-09-23] MEDS: FLUCONAZOLE 100 MG TAB PO SCH (09:14)
[2016-09-23] MEDS: METRONIDAZOLE 500 MG TAB PO SCH (09:14)
[2016-09-23] MEDS: OXYCODONE HCL 20 MG TABCR (OXYCONTIN) PO SCH ×2 (09:14→20:53)
--- NOTE | 2016-09-23 14:17 | Family Medicine Progress Note ---
Progress Note Date of Service Sep 23, 2016. Subjective Pt evaluation today including: conversation w/ patient, physical exam, chart review, lab review Pain: Wants IV dilaudid for pain PO Intake: Good Voiding: no voiding problems, no incontinence No issues overnight Patient continues to request IV dilaudid Wound seems to be improving Eating well; no BM in 3 days Additional Comments: A 10 point review of systems was negative unless stated above. Medications Current Inpatient Medications Medications (Trade) Dose Ordered Sig/Marilee Route Start Time Stop Time Status Last Admin Dose Admin Acetaminophen (Tylenol Tab) 650 mg Q4H PRN PO 09/13/16 21:15 10/13/16 21:14 09/14/16 08:19 650 MG Ondansetron HCl (Zofran Inj) 4 mg Q6H PRN IV 09/13/16 21:15 10/13/16 21:14 09/17/16 19:37 4 MG Ceftriaxone Sodium 1 gm/ Dextrose 50 ml @ 100 mls/hr Q24H IV 09/14/16 19:00 09/23/16 18:59 09/22/16 19:45 100 MLS/HR Albuterol/ Ipratropium (Duoneb) 3 ml Q4R PRN INH 09/13/16 22:00 10/13/16 21:59 Metoprolol Tartrate (Lopressor Tab) 12.5 mg TID PO 09/14/16 09:00 10/14/16 08:59 Future Hold 09/15/16 07:51 12.5 MG Lorazepam 1 mg/ Syringe 1 ml @ 1 mls/min Q2H PRN IV 09/13/16 23:15 10/13/16 23:14 09/23/16 07:48 1 MLS/MIN Nicotine (Nicoderm Cq 14MG Patch) 1 patch QAM TD 09/15/16 09:00 10/15/16 08:59 Miscellaneous (Remove Nicoderm Patch) 1 ea HS N/A 09/14/16 21:00 10/14/16 20:59 09/19/16 21:17 1 EA Hydromorphone HCl (Dilaudid Inj) 1 mg Q4H PRN IV 09/16/16 07:05 09/30/16 07:04 Future Hold 09/22/16 14:06 1 MG Tapentadol (Nucynta Tab) 50 mg Q4H PRN PO 09/17/16 08:45 10/01/16 08:44 09/23/16 07:48 50 MG Fluconazole (Diflucan Tab) 200 mg QAM PO 09/17/16 11:30 09/27/16 11:29 09/23/16 09:14 200 MG Metronidazole (Flagyl Tab) 500 mg TID PO 09/21/16 11:00 10/01/16 10:59 09/23/16 09:14 500 MG Ceftriaxone Sodium 1 gm/ Dextrose 50 ml @ 100 mls/hr Q24H IV 09/23/16 19:00 10/03/16 18:59 Tapentadol (Nucynta Er Tab) 50 mg Q12 PO 09/22/16 21:00 10/22/16 20:59 09/23/16 09:13 50 MG Oxycodone HCl (Oxycontin Tab) 20 mg Q12 PO 09/22/16 21:00 10/06/16 20:59 09/23/16 09:14 20 MG Objective Vital Signs Date Time Temp Pulse Resp B/P (MAP) Pulse Ox O2 Delivery O2 Flow Rate FiO2 09/23/16 07:15 Room Air 09/23/16 07:07 36.8 77 16 111/79 (90) 97 Room Air 09/22/16 23:40 Room Air 09/22/16 23:20 37.0 88 18 99/66 (77) 97 Room Air 09/22/16 15:45 Room Air 09/22/16 15:00 36.8 100 18 106/71 (83) 97 Room Air Physical Exam General Appearance: WD/WN, no apparent distress Eyes: normal inspection, EOMI ENT: hearing grossly normal, pharynx normal Neck: supple, no adenopathy, no JVD Respiratory/Chest: lungs clear, no respiratory distress Cardiovascular: regular rate, rhythm, no gallop, no murmur Abdomen: normal bowel sounds, non tender, no organomegaly Extremities: non-tender, no pedal edema, + pertinent finding (wound vac in place, wound intact, no erythema or purulence at this time; wound image reviewed and wound appears stable) Neurologic/Psychiatric: alert, normal mood/affect, oriented x 3 Skin: normal color, warm/dry, no rash Lymphatic: no adenopathy Assessment and Plan This is a 35 year old male with resolving purulent cellulitis of the left upper extremity. Day 9 s/p I&D by surgery. Pain medications de-escalated yesterday; patient disappointed at not having IV Dilaudid but seems to be tolerating. Changing antibiotics to PO today. Purulent left-upper extremity cellulitis - S/p I&D Day 9: incisions looks stable, no evidence of infection - Surgery will see as outpt; appointment has been made - D/C Rocephin - Start PO Clindamycin 300 mg TID; Continue Fluconazole - Will continue PO antibiotics until outpatient F/U with ID - ID and surgery recommendations appreciated New Hepatitis C Diagnosis - ID consulted; needs to be off IVDU 6 months before he can get treatment - Transaminitis elevated but remain stable; Liver U/S shows cholelithiasis but no other acute infective process apart from Hep C - Follow CMP - Hep B and Pneumvax doses vaccinations give Intravenous Opioid Abuser - Continue Ativan PRN - Echo negative for valvular pathology - Resources for outpatient methadone clinic given to patient; patient needs to initiate contact Tobacco abuser - Smoking cessation and nicotine patch DVT Prophylaxis - SCD - Ambulate in hallway Disposition - Med/Surg - Remains inpatient until outpatient wound vac can be arranged Resident Physician Supervision Note: I was present with PGY2 Dr. Heriberto Holley during the history and exam. I discussed the case with the resident and agree with the findings and plan as documented in the note. Any exceptions or clarifications are listed here: none. c/o about pain meds, wanting more of them including IV pain meds. No abd pain DID have bowel movement yesterday VSS no fever gen - flat affect mouth - no thrush heart - RRR lungs - CTA b/l abd - soft, NT, no HSM ext - no edema; left arm - woundvac in place; slight contracture of left arm A/P: Left arm cellulitis with abscess - s/p I & D with woundvac placement. IV heroine abuse - chronic. HepC infection - chronic. d/c rocephin; change to clindamycin. Cont diflucan. woundvac arrangements pending for home. referral to methadone clinic in [place]. mother updated at bedside Documented By: Beni Vidal MD Continued [facility] stay due to: other (Needs wound vac) Discharge planning: home
[2016-09-23 15:25] VITALS: BP 123/72; PULSE 104; TEMP 36.8; O2SAT 96
[2016-09-23] MEDS ORDERED: CEFTRIAXONE SOD INJ 1 GM in DEXTROSE 5% ADD-VANTAGE 50ML 50 ML IV SCH (19:00)
[2016-09-23] MEDS: CLINDAMYCIN HCL 150 MG CAP PO SCH (20:53)
[2016-09-23] MEDS: LORAZEPAM 0.5 MG TAB PO PRN (20:53)
[2016-09-23 23:02] VITALS: BP 95/63; PULSE 89; TEMP 36.9; O2SAT 98
[2016-09-24 06:07] LABS: MEAN CELL VOLUME 89.9 fL (80-100); MEAN CORPUSCULAR HEMOGLOBIN 30.8 pg (25-34); MEAN CORPUSCULAR HGB CONC 34.3 g/dl (32-36); MEAN PLATELET VOLUME 8.8 fL (7.4-10.4); PLATELET COUNT 398 K/uL (130-400); RED BLOOD COUNT 4.67 M/uL (4.7-6.1); WHITE BLOOD COUNT 6.67 K/uL (4.8-10.8)
[2016-09-24 06:48] LABS: BUN/CREATININE RATIO 24.1 (10-20); CALCIUM 8.6 mg/dl (8.5-10.1); CREATININE 0.89 mg/dl (0.60-1.40); POTASSIUM 4.4 mmol/L (3.5-5.1)
[2016-09-24 06:51] LABS: ALB/GLOB RATIO 0.8 (0.9-2)
[2016-09-24 07:01] VITALS: BP 107/74; PULSE 86; TEMP 36.6; O2SAT 97
[2016-09-24] MEDS ORDERED: POLYETHYLENE (MIRALAX) 17 GM PACK PO SCH (09:00)
[2016-09-24] MEDS: NICOTINE 14 MG/24 HR TDSY TD SCH (09:00)
[2016-09-24] MEDS: FLUCONAZOLE 100 MG TAB PO SCH (09:05)
[2016-09-24] MEDS: OXYCODONE HCL 20 MG TABCR (OXYCONTIN) PO SCH (09:06)
[2016-09-24] MEDS: LORAZEPAM 0.5 MG TAB PO PRN (09:06)
[2016-09-24] MEDS: CLINDAMYCIN HCL 150 MG CAP PO SCH ×2 (09:07→14:00)
--- NOTE | 2016-09-24 10:10 | Infectious Disease Progress Nt ---
Progress Note Date of Service September 23, 2016. Subjective Pt evaluation today including: conversation w/ patient, conversation w/ family (mother), physical exam, chart review, lab review, review of studies, review of inpatient medication list Patient continues to have increased pain with wound vac changes or PT. The patient's WBC count continues to be stable. Creatinine stable as well at 0.87. Wound image from today reviewed by me. Shows further improvement of the area. The patient is anticipating D/C home soon once wound vac is in place for at home care. The patient is going to transition to PO abx therapy due to coverage issues. All Other Systems: Reviewed and Negative Medications Current Inpatient Medications Medications (Trade) Dose Ordered Sig/Marilee Route Start Time Stop Time Status Last Admin Dose Admin Acetaminophen (Tylenol Tab) 650 mg Q4H PRN PO 09/13/16 21:15 10/13/16 21:14 09/14/16 08:19 650 MG Ondansetron HCl (Zofran Inj) 4 mg Q6H PRN IV 09/13/16 21:15 10/13/16 21:14 09/17/16 19:37 4 MG Albuterol/ Ipratropium (Duoneb) 3 ml Q4R PRN INH 09/13/16 22:00 10/13/16 21:59 Metoprolol Tartrate (Lopressor Tab) 12.5 mg TID PO 09/14/16 09:00 10/14/16 08:59 Future Hold 09/15/16 07:51 12.5 MG Nicotine (Nicoderm Cq 14MG Patch) 1 patch QAM TD 09/15/16 09:00 10/15/16 08:59 Miscellaneous (Remove Nicoderm Patch) 1 ea HS N/A 09/14/16 21:00 10/14/16 20:59 09/19/16 21:17 1 EA Hydromorphone HCl (Dilaudid Inj) 1 mg Q4H PRN IV 09/16/16 07:05 09/30/16 07:04 Future Hold 09/22/16 14:06 1 MG Tapentadol (Nucynta Tab) 50 mg Q4H PRN PO 09/17/16 08:45 10/01/16 08:44 09/23/16 16:05 50 MG Fluconazole (Diflucan Tab) 200 mg QAM PO 09/17/16 11:30 09/27/16 11:29 09/24/16 09:05 200 MG Tapentadol (Nucynta Er Tab) 50 mg Q12 PO 09/22/16 21:00 10/22/16 20:59 09/23/16 20:53 50 MG Oxycodone HCl (Oxycontin Tab) 20 mg Q12 PO 09/22/16 21:00 10/06/16 20:59 09/24/16 09:06 20 MG Clindamycin HCl (Cleocin Cap) 300 mg TID PO 09/23/16 21:00 10/03/16 20:59 09/24/16 09:07 300 MG Lorazepam (Ativan Tab) 0.5 mg Q6H PRN PO 09/23/16 17:15 10/23/16 17:14 09/24/16 09:06 0.5 MG Polyethylene (Miralax Powder Packet) 17 gm DAILY PO 09/24/16 09:00 10/24/16 08:59 Objective Vital Signs Date Time Temp Pulse Resp B/P (MAP) Pulse Ox O2 Delivery O2 Flow Rate FiO2 09/24/16 07:01 36.6 86 16 107/74 (85) 97 Room Air 09/23/16 23:15 Room Air 09/23/16 23:02 36.9 89 16 95/63 (74) 98 Room Air 09/23/16 15:40 Room Air 09/23/16 15:25 36.8 104 18 123/72 (89) 96 Room Air Physical Exam General Appearance: WD/WN, + mild distress (pain after vac change) Eyes: normal inspection, sclerae normal ENT: hearing grossly normal Neck: supple, trachea midline Respiratory/Chest: no respiratory distress, no accessory muscle use Cardiovascular: regular rate, rhythm Extremities: + pertinent finding (left arm with wound vac in place, no surrounding erythema.) Neurologic/Psychiatric: alert, normal mood/affect Skin: warm/dry, no rash Laboratory Results Item Value Date Time Gram Stain - Final Complete 09/14/16 0000 Tissue Arm Gram Stain - Final Complete 09/13/162014 Abscess Arm , Left Lower Blood Culture - Final Complete 09/13/16 1933 Blood NO GROWTH Blood Culture - Final Complete 09/13/16 1840 Blood NO GROWTH Last 24 Hours Test 09/24/16 05:32 White Blood Count 6.67 K/uL Red Blood Count 4.67 M/uL Hemoglobin 14.4 g/dL Hematocrit 42.0 % Mean Corpuscular Volume 89.9 fL Mean Corpuscular Hemoglobin 30.8 pg Mean Corpuscular Hemoglobin Concent 34.3 g/dl RDW Standard Deviation 42.8 fL RDW Coefficient of Variation 13.2 % Platelet Count 398 K/uL Mean Platelet Volume 8.8 fL Sodium Level 140 mmol/L Potassium Level 4.4 mmol/L Chloride Level 105 mmol/L Carbon Dioxide Level 26 mmol/L Anion Gap 9.0 mmol/L Blood Urea Nitrogen 21 mg/dl Creatinine 0.89 mg/dl Est Creatinine Clear Calc Drug Dose 128.4 ml/min Estimated GFR () 129.3 Estimated GFR (Non- 111.6 BUN/Creatinine Ratio 24.1 Random Glucose 100 mg/dl Calcium Level 8.6 mg/dl Total Bilirubin 0.2 mg/dl Aspartate Amino Transf (AST/SGOT) 178 U/L Alanine Aminotransferase (ALT/SGPT) 415 U/L Alkaline Phosphatase 146 U/L Total Protein 7.4 gm/dl Albumin 3.3 gm/dl Globulin 4.1 gm/dl Albumin/Globulin Ratio 0.8 Assessment and Plan Patient is an IV drug user with large left forearm abscess with polymicrobial infection and new diagnosis of Hepatitis C. The patient has MSSA, anaerobic gram negative bacilli, yeast, strep, and multiple organisms growing from abscess culture. The patient is currently on IV Ceftriaxone, Fluconazole, and Flagyl. Patient to transition to PO Clindamycin 300 mg TID along with PO fluconazole for continued coverage of polymicrobial infection. The patient likely will need at least 2-3 more weeks of therapy pending wound care/ID follow up. He is otherwise OK for D/C from ID perspective. Thanks PROVIDER ADDENDUM: Patient reviewed with Ms. Purvis. Agree with above assessment.
[2016-09-24] MEDS: TAPENTADOL ER 50 MG TABCR PO SCH (10:41)
[2016-09-24] MEDS ORDERED: NCY50 PO (15:04)
[2016-09-24] MEDS ORDERED: NCYSR50 PO (15:04)
[2016-09-24] MEDS ORDERED: CLC150 PO (15:04)
[2016-09-24] MEDS ORDERED: FLUC200T4 PO (15:04)
[2016-09-24] MEDS ORDERED: NICO14DI9 TD (15:04)
--- NOTE | 2016-09-24 15:15 | Discharge Instructions ---
Discharge Instructions Date of Service Sep 24, 2016. Admission Reason for Admission: Cellulitis And Abscess Of Left Arm Discharge Discharge Diagnosis / Problem: Abscess of left arm with need for surgery & placement of woundvac Discharge Goals Goal(s): Improve disease control, Learn about illness, Diagnostic testing, Therapeutic intervention Activity Recommendations Activity Limitations: as noted below Lifting Limitations: no more than 10 pounds (with the left hand/arm) Shower/Bathe: no limitations (keep the woundvac covered and intact during baths ) . Instructions / Follow-Up Instructions / Follow-Up 1. You will need to take antibiotics for at least 2 weeks for your left arm infection. The wound care center and the infectious disease team will determine if a longer course is needed. Please take the following - * clindamycin 300mg three times a day * fluconazole 200mg once a day Prescriptions sent to [facility] in [place]. The clindamycin can cause diarrhea. Please eat yogurt daily, perhaps even twice a day, to help prevent diarrhea. If you develop diarrhea and it is associated with blood, mucous, fever, or is getting worse please let your doctors know right away. 2. Pain - * nucynta ER (extended release) 50mg twice a day * nucynta IR (short-acting) every 4 hours as needed for pain * DO NOT TAKE TYLENOL as your liver function tests are abnormal from the hepatitis * a 7-day supply of the above pain medications has been provided to you 3. Wound Vac - * On 09/25/16, there will be a visitor to your home to check on the woundvac and the wound * On 09/28/16, please visit the [facility] in [place] as scheduled * if you have ANY problems with the woundvac either call the woundvac company OR call the WoundCare Center 4. Please call the [place] [facility] to begin the intake process. You must call the clinic directly to establish care there. 5. DO NOT DRINK alcohol while on the antibiotics and the nucynta pain medication. 6. If you wish to continue the nicoderm patch to stay smoke-free this has been sent to [facility] for you. Do NOT smoke cigarettes and use the patch at the same time. 7. You received your first hepatitis B vaccine in the hospital. You will need 2 more doses of this vaccine. Please see Dr. Loja's office to have your 2nd booster in 2 months, then your 3rd booster in 6 months. Also inquire about hepatitis A vaccine with Dr. Loja. Lastly, you received the pneumovax vaccine. You will need a booster of this in 5 years. 8. Return to [facility] if - * you have a fever over 100.5 degrees * worsening pain not responding to your pain medications * it appears that there is worsening redness, swelling, etc of the left arm * you have difficulty using/moving the left arm Current Hospital Diet Patient's current hospital diet: Regular Diet Discharge Diet Recommended Diet: Regular Diet Procedures Procedures Performed: 1. Incision and Drainage Left Forearm and upper arm Abscess 2. liver ultrasound showing gallstones Pending Studies Studies pending at discharge: no Medical Emergencies . Who to Call and When: Medical Emergencies: If at any time you feel your situation is an emergency, please call 911 immediately. . Non-Emergent Contact Non-Emergency issues call your: Specialist (Wound Care Clinic) Call Non-Emergent contact if: temperature is above 100.5, wound has increased drainage, wound has increased redness, wound has increased pain, you have any medication questions . . "Provider Documentation" section prepared by Beni Vidal. . VTE Core Measure Inpt VTE Proph given/why not?: SCD's [place] Drug Monitoring Program Search Results: patient reviewed within database, no issues identified
[2016-09-24 15:56] VITALS: BP 107/74; PULSE 86; TEMP 36.6; O2SAT 97
--- NOTE | 2016-09-24 18:14 | Discharge Summary ---
Discharge Summary Date of Service Sep 24, 2016. (Heriberto Holley MD) Discharge Summary Admission Date: September 13, 2016 at 21:21 Discharge Date: Sep 24, 2016 Discharge Disposition: Home Principal Diagnosis: Left Arm Cellulitis Problems/Secondary Diagnoses: IV Opioid Abuse, New Hep C diagnosis Procedures: DICTATED BY: Alexandru Momin M.D. DATE OF OPERATION: 09/14/2016 SURGEON: MD Merrill. PREOPERATIVE DIAGNOSIS: Abscess, 09/14/2016 left forearm with cellulitis left upper arm. POSTOPERATIVE DIAGNOSIS: Abscess and inflammatory process extending from the upper third of the left forearm to the distal one-third of the left upper arm. SUMMARY: The patient was brought into the operating room. Under LMA anesthesia, the left arm was prepped after we took the packing that was placed by the ER physicians and properly draped. The packing was just inferior to the antecubital fossa where it was about 0.5 cm in size. It was about 3-4 inches of packing which was a quarter inch removed. At this point, I expressed the area since there was quite a bit of edema in the left upper arm I did not see anything significant, substance or clear fluid. I placed a hemostat along the tract which traveled towards the antecubital fossa more in the lateral aspect, opened the skin to the subcutaneous tissue. Bleeding was controlled by cautery and once we were in this area, we could identify that this track and even the packing was actually subfascially. We then extended more cephalad since there seemed to be track on the lateral aspect of the upper forearm and the lower upper arm and once we opened the fascia above the antecubital fossa, we were met with a pocket of significant whitish purulent drainage quite under pressure. I had to place the hemostat and delineate that this was subfascially along what appeared to be likely where the course of the cephalic vein was. We opened that up to the upper arm, the skin and subcutaneous tissue, I placed a finger where the pocket was delineated completely. We had extended the incision from the left forearm up to the left upper arm in a Z-fashion extending probably about 6-8 inches. Of note, also there was some purulence appreciated intramuscularly though we did not debride this. There was not significant muscle necrosis. We irrigated copiously. Once I had accomplished this, I always looked to the forearm. There was no evidence of any extension in to the fascial planes or distally in a compartment type fashion. Seems like this was all localized and debrided. Once we explored the area further subcutaneously, there were no other pockets identified. At this point, once we controlled most of hemostasis with electrocautery, I packed the area with half inch plain gauze tight, wrapped it with an ABD, Kerlix and an Devonte wrap. Cultures were taken once we entered up the large cavity in the lower upper arm and sent for aerobes and anaerobes. The procedure was tolerated well by the patient. Estimated blood loss approximately 25 mL. The patient was taken to recovery room in good condition. I attest to the content of the Intraoperative Record and any orders documented therein. Any exceptions are noted below. RUN DATE: 09/18/16 [facility] LAB PAGE 1 RUN TIME: 1450 Specimen Inquiry PATIENT: BLAS HUNT LOC: [employer] U # : [id number] AGE/SX: 35/M ROOM: [facility] REG : 09/13/[address]: Tanya Cornejo M.D. : 1980 BED: 1 DIS : STATUS: ADM IN TLOC: SPEC #: [id number] CRISTIANE: 09/13/16 STATUS: RONALDO REQ #: [id number] RECD: 09/13/[address] [facility] [address]: Chantell Gillette, DELMER Lester SOURCE: ABSCESS ENTR: 09/13/[address]: Nasir Gonzalez DO SPDES: Ascenicon APARICIO Roy ., M.D. Shannon, Dennis, M.D. ORDERED: DANIEL OWEN CUL/TAMMY COMMENTS: Has Specimen Been Obtained/Collected? Y Procedure Result Verified Site GRAM STAIN Final 09/14/16-0800 RESULT MANY WBCs SEEN MANY GRAM POSITIVE COCCI MODERATE GRAM NEGATIVE BACILLI DEEP WOUND CULTURE Final 09/18/16-1450 Organism 1 BETA HEMOLYTIC STREP GROUP F QUANITY FEW SENS NON-VIABLE FOR SENSITIVITIES Organism 2 ALPHA STREP. NOT ENTEROCOCCUS QUANITY MANY SENS NO SENSITIVITY TO FOLLOW Organism 3 STAPHYLOCOCCUS AUREUS QUANITY RARE SENS SENSITIVITY TO FOLLOW Organism 4 YEAST NOT FRANCISCO JAVIER ALBICANS QUANITY FEW SENS NO SENSITIVITY TO FOLLOW Organism 5 PREVOTELLA MELANINOGENICA QUANITY FEW SENS NO SENSITIVITY TO FOLLOW Organism 6 ACTINOMYCES TURICENSIS QUANITY MODERATE SENS NO SENSITIVITY TO FOLLOW Organism 7 STAPHYLOCOCCUS AUREUS#2 QUANITY RARE SENS SENSITIVITY TO FOLLOW Organism 8 PREVOTELLA INTERMEDIA QUANITY MANY SENS NO SENSITIVITY TO FOLLOW STAPH AUR STAPH AUR#2 M.I.C. RX M.I.C. RX --------- ------ --------- ------ TRIMET/SULFA <=0.5/9.5 S <=0.5/9.5 S * OXACILLIN 0.5 S <=0.25 S VANCOMYCIN 2 S 1 S ERYTHROMYCIN >4 R >4 R TETRACYCLINE <=4 S >8 R CLINDAMYCIN <=0.5 S <=0.5 R CONTINUED ON NEXT PAGE RUN DATE: 09/18/16 [facility] LAB PAGE 2 RUN TIME: 1450 Specimen Inquiry SPEC: [id number] PATIENT: BLAS HUNT [id number] ( Continued) Procedure Result Verified Site DEEP WOUND CULTURE Final (continued) 09/18/16-1449 STAPH AUR STAPH AUR#2 M.I.C. RX M.I.C. RX --------- ------ --------- ------ DAPTOMYCIN <=0.5 S <=0.5 S 3. STAPHYLOCOCCUS AUREUS Target Route Dose RX AB Cost M.I.C. IQ ------ ----- ------ -- ------ -------- - ------ TRIMET/SULFA S <=0.5/ 9.5 * OXACILLIN S 0.5 VANCOMYCIN S 2 ERYTHROMYCIN R >4 TETRACYCLINE S <=4 CLINDAMYCIN S <=0.5 DAPTOMYCIN S <=0.5 7. STAPHYLOCOCCUS AUREUS#2 Target Route Dose RX AB Cost M.I.C. IQ ------ ----- ------ -- ------ -------- - ------ TRIMET/SULFA S <=0.5/ 9.5 * OXACILLIN S <=0.25 VANCOMYCIN S 1 ERYTHROMYCIN R >4 TETRACYCLINE R >8 CLINDAMYCIN R <=0.5 DAPTOMYCIN S <=0.5 S = SENSITIVE I = INTERMEDIATE R = RESISTANT RUN DATE: 09/20/16 [facility] LAB PAGE 1 RUN TIME: 1400 Specimen Inquiry PATIENT: BLAS HUNT LOC: [employer] U # : [id number] AGE/SX: 35/M ROOM: [facility] REG : 09/13/[address]: Tanya Cornejo M.D. : 1980 BED: 1 DIS : STATUS: ADM IN TLOC: SPEC #: [id number] CRISTIANE: 09/14/16-EMMA STATUS: COMP REQ #: [id number] RECD: 09/14/[address]: Alexandru Momin M.D. SOURCE: TISSUE ENTR: 09/14/[address]: Julian Rangel M.D. [facility]: Ousmane Mahan M.D. Singh, Madhavi, M.D. Thatte, Amit, MD ORDERED: AER/ANTHONY CULTSMR COMMENTS: LEFT ARM ABSCESS Procedure Result Verified Site GRAM STAIN Final 09/15/16-0749 RESULT MANY POLYS MANY GRAM POSITIVE COCCI OR AER/ANTHONY CULT Final 09/20/16-1400 Organism 1 ALPHA STREP. NOT ENTEROCOCCUS QUANITY MODERATE SENS NO SENSITIVITY TO FOLLOW Organism 2 BETA HEMOLYTIC STREP GROUP F QUANITY FEW SENS NON-VIABLE FOR SENSITIVITIES Organism 3 PREVOTELLA INTERMEDIA QUANITY MODERATE SENS NO SENSITIVITY TO FOLLOW Organism 4 PEPTOSTREPTOCOCCUS SPECIES QUANITY MODERATE SENS NO SENSITIVITY TO FOLLOW Organism 5 STAPHYLOCOCCUS AUREUS QUANITY RARE SENS SENSITIVITY TO FOLLOW 5. STAPHYLOCOCCUS AUREUS Target Route Dose RX AB Cost M.I.C. IQ ------ ----- ------ -- ------ -------- - ------ TRIMET/SULFA S <=0.5/ 9.5 * OXACILLIN S <=0.25 VANCOMYCIN S 2 ERYTHROMYCIN R >4 TETRACYCLINE R >8 CLINDAMYCIN R <=0.5 DAPTOMYCIN S <=0.5 S = SENSITIVE I = INTERMEDIATE R = RESISTANT END OF REPORT Consultations: Infectious Diseases Pain Management General Surgery (Heriberto Holley MD) Medication Reconciliation New Medications: Clindamycin HCl (Clindamycin HCl) 150 Mg Cap 300 MG PO TID for 14 Days, #84 CAP 1 Refill Fluconazole (Diflucan) 200 Mg Tab 1 TAB PO DAILY for 14 Days, #14 TAB 1 Refill Nicotine (Nicotine) 14 Mg/24 Hr Dis 1 PATCH TD QAM for 30 Days, #30 PATCH 0 Refills 14mg patch Tapentadol HCl (Nucynta ER) 50 Mg Tabcr 50 MG PO Q12 for 7 Days, #14 TAB 0 Refills Tapentadol HCl (Nucynta) 50 Mg Tab 50 MG PO Q4H PRN for Pain for 7 Days, #30 TAB 0 Refills Discharge Exam A 10 point review of systems was negative unless in the hospital course. Physical Exam: General Appearance: WD/WN, no apparent distress Eyes: normal inspection, EOMI ENT: hearing grossly normal, pharynx normal Neck: supple, no adenopathy, no JVD Respiratory/Chest: lungs clear, no respiratory distress, + pertinent finding (breath sounds are coarse at baseline due to extensive smoking history) Cardiovascular: regular rate, rhythm, no edema, no gallop Abdomen / GI: normal bowel sounds, non tender, soft Extremities: no calf tenderness, no pedal edema, + pertinent finding (Wound vac in place; no erythema or purulence) Neurologic/Psychiatric: alert, normal mood/affect, oriented x 3 Skin: normal color, warm/dry, no rash Lymphatic: no adenopathy (Heriberto Holley MD) Hospital Course This is a 35 year old male, history of 10 bags IV heroine use daily, presents with purulent cellulitis of the left upper extremity. Purulent left-upper extremity cellulitis - Taken for I&D by general surgery 09/14/2016, report provided above - Wound vac post-operatively; approved for home wound vac at discharge - Will see surgery 1 week after discharge - Polymicrobial growth on culture as noted in culture provided above; started initially on broad spectrum Abx (Vanc, Rocephin, Flagyl and Fluconazole) Discharged on Clindamycin and Fluconazole x 2 weeks - Will follow-up with ID/Wound Care New Hepatitis C Diagnosis - ID consulted; needs to be off IVDU 6 months before he can get treatment - Transaminitis elevated but remain stable; Liver U/S shows cholelithiasis but no other acute infective process apart from Hep C - Follow CMP - Hep B and Pneumovax doses vaccinations give - Recommend PCP try to complete series and include Hep A which was not available at the hospital Intravenous Opioid Abuser - Echo negative for valvular pathology - Given phone number for [facility]; patient needs to initiate contact - HIV negative - Pain management consulted during admission Discharged on Nucynta No opioids prescribed at discharge Tobacco abuser - Smoking cessation and nicotine patch DVT Prophylaxis - SCD - Ambulate in hallway Disposition - Med/Surg - Discharged home in stable condition Total Time Spent: Greater than 30 minutes This includes examination of the patient, discharge planning, medication reconciliation, and communication with other providers. (Heriberto Holley MD) Attending Discharge Note and Attestation: Pt seen/examined, chart reviewed, care plan d/w PGY2 Dr. Heriberto Holley. I agree w/ the cordova components of his discharge summary. 35yo male with h/o IV heroin abuse who presented with complaint of infection in his left upper arm after having injected heroin in the recent past. It was I/D in the emergency department and he was subsequently admitted. On hospital day #2 he was taken to the OR by Dr. Jersey Momin where he underwent I/D and extensive debridement. Intra-op wound cultures ultimately grew multiple organisms including yeast. He received nearly 10 days of IV antibiotic therapy. Blood cultures remained negative. Wound care and infectious disease were involved in his care and recommended a long course of oral clindamycin, oral diflucan, and a woundvac for after discharge. Home health has been set up for wound care and to monitor his woundvac. He will also follow in the [facility]. He was seen in consult by pain management. Nucynta IR and ER were recommended for short term use. He was encouraged to follow with the [facility] to maintain sobriety from the IV heroin. Lastly, he was diagnosed with hepatitis C during this admission. LFTs were abnormal but stable. HepB vaccine #1 was administered as well as pneumovax. ID can follow his hepatitis C and ultimately treatment can be pursued. Discharge exam - gen - nad psych - flat affect heart - RRR, no murmur lungs - CTA b/l abd - soft, NT, no HSM ext - left arm wound with woundvac in place; no erythema of any portion of the arm musculo - mild contracture of the distal arm Of note - PT/OT were consulted to give him exercises to prevent and treat the left arm contracture. Beni Vidal MD (Beni Vidal MD) Discharge Instructions Please refer to the electronic Patient Visit Report (Discharge Instructions) for additional information. (Heriberto Holley MD) Follow-Up PCP for follow-up Wound Care/Infectious Diseases General Surgery for wound evaluation (Heriberto Holley MD) 1. [facility] Office with Fabiola Puente PA-C on October 01 at 11:00 am 2. [facility] on WednesdaySeptember 28 at 2:[address] Aleyda Bonilla, infectious disease, WednesdaySeptember [address] Jersey Momin - WednesdayOctober 19 at 2:10 pm 5. Patient given information for the methadone treatment program through [facility] and has to self-refer (Beni Vidal MD) Additional Copies To Aleyda Bonilla.Kike; Alexandru Momin M.D.; Fabiola Puente P.A.
[2016-09-28] MEDS ORDERED: SULF800T23 PO (15:06)
== END 2016-09-24 16:22 | disposition home health service (06) | DRG 854 ==
LOC: ENRESERVDT → ENRESERVTM → C.EDB 18:04 → C.MSW 21:21
PROVIDERS: ADMIT Internal Medicine; ATTEND Internal Medicine
PROC: 0H9EXZZ Drainage of Left Lower Arm Skin, External Approach (ICD-10-PCS; principal; 2016-09-13)
PROC: 0J9H0ZZ Drainage of Left Lower Arm Subcutaneous Tissue and Fascia, Open Approach (ICD-10-PCS; 2016-09-14)
DX: A41.9 Sepsis, unspecified organism (principal); L02.414 Cutaneous abscess of left upper limb; L03.114 Cellulitis of left upper limb; F11.20 Opioid dependence, uncomplicated; B19.20 Unspecified viral hepatitis C without hepatic coma; B95.61 Methicillin susceptible Staphylococcus aureus infection as the cause of diseases classified elsewhere; B95.5 Unspecified streptococcus as the cause of diseases classified elsewhere; K80.20 Calculus of gallbladder without cholecystitis without obstruction; F17.200 Nicotine dependence, unspecified, uncomplicated; W46.0XXA Contact with hypodermic needle, initial encounter

== ENCOUNTER 2017-05-26 23:34 | Emergency (ER) | payer OTHER ==
[~2017-05-26] VITALS: Ht 185.4 cm; Wt 92.7 kg
[~2017-05-26 23:34] MED LIST: CLC150 PO; FLUC200T4 PO; NCY50 PO; NCYSR50 PO
[2017-05-26 23:36] VITALS: TEMP 36.3; Ht 185.4 cm; Wt 92.7 kg
[2017-05-27] MEDS ORDERED: KETOROLAC TROMETHAMINE 30 MG/ML VIAL IV STA (00:01)
--- NOTE | 2017-05-27 00:03 | EMERGENCY ROOM VISIT NOTE ---
History Report prepared by Fernando: Saeid Hatch Under the Supervision of: Dr. Johanny Walton D.O. First contact with patient: 23:40 Chief Complaint: FLANK PAIN Stated Complaint: PAIN IN LWR LEFT SIDE History of Present Illness The patient is a 36 year old male who presents to the Emergency Room with complaints of constant left-sided flank pain beginning an hour ago. The patient states that his pain started when he was lying in bed tonight. He notes that he felt like he had to have a bowel movement, but reports that his pain kept getting worse. The patient states that he has not had pain similar to this before. He also complains of lower back pain. He rates his pain a 10/10. Source of History: patient Onset: an hour ago Position: abdomen (left flank) Symptom Intensity: 10/10 Timing: constant Associated Symptoms: + back pain (lower) Review of Systems See HPI for pertinent positives & negatives. A total of 10 systems reviewed and were otherwise negative. Past Medical & Surgical Medical Problems: (1) Cellulitis and abscess of upper arm and forearm (2) Sepsis affecting skin Family History Kidney disease Kidney stones Social History Smoking Status: Current Every Day Smoker Marital Status: in relationship Occupation Status: unemployed Current/Historical Medications No Active Prescriptions or Reported Meds Allergies Coded Allergies: Penicillins (Unverified Allergy, Mild, 09/13/16) Physical Exam Vital Signs Date Time Temp Pulse Resp B/P (MAP) Pulse Ox O2 Delivery O2 Flow Rate FiO2 05/27/17 02:19 95 16 137/93 98 05/27/17 01:32 102 20 151/91 100 Room Air 05/26/17 23:36 36.3 68 24 146/76 98 Room Air Physical Exam General: Appears very uncomfortable. HEENT: Head - normocephalic and atraumatic Pupils are equal, round, and reactive to light. Extraocular eye muscles are intact, and sclera are anicteric. Nose - moist nasal mucosa without discharge. Mouth - moist buccal mucosa. Oropharynx is nonerythematous and there is no tonsillar exudate or edema noted. Neck: Supple; no cervical lymphadenopathy or nuchal rigidity.. Heart: Regular rhythm and tachycardic. There is a normal S1 and S2 with no murmurs, clicks, or gallops appreciated. Lungs: Clear to auscultation bilaterally with no wheezes, rales, or rhonchi. Abdomen: Soft, nondistended, with good bowel sounds. There are no palpable pulsatile masses or hepatosplenomegaly. There is no guarding, rigidity, or rebound noted. Pain with palpation in left inguinal canal. Extremities: No evidence of cyanosis, clubbing, or edema. There are easily palpable peripheral pulses. The patient has multiple areas of scarred veins from multiple needle sticks and previous abscessed wounds. Skin: warm and dry with good turgor and no rashes. Genitals: No pain with palpation of testicles. There is no obvious inguinal hernia. Medical Decision & Procedures ER Provider Diagnostic Interpretation: Radiology results as stated below per my review and the radiologist's interpretation: US RENAL: No hydronephrosis. Right kidney 10.3 cm. Left kidney 11.7 cm. Splenomegaly, 15 cm. Radiologist: Elvira Nj M.D. Laboratory Results 05/27/17 00:42 Red Blood Count 4.96, Mean Corpuscular Volume 89.3, Mean Corpuscular Hemoglobin 32.1, Mean Corpuscular Hemoglobin Concent 35.9, Mean Platelet Volume 9.4, Neutrophils (%) (Auto) 66.5, Lymphocytes (%) (Auto) 23.6, Monocytes (%) (Auto) 7.6, Eosinophils (%) (Auto) 1.6, Basophils (%) (Auto) 0.5, Neutrophils # (Auto) 8.82, Lymphocytes # (Auto) 3.13, Monocytes # (Auto) 1.01, Eosinophils # (Auto) 0.21, Basophils # (Auto) 0.06 05/27/17 00:41 Test 05/27/17 00:00 05/27/17 00:41 05/27/17 00:42 Urine Color YELLOW Urine Appearance CLEAR (CLEAR) Urine pH 5.5 (4.5-7.5) Urine Specific [place] 1.025 (1.000-1.030) Urine Protein NEG (NEG) Urine Glucose (UA) NEG (NEG) Urine Ketones 1+ (NEG) Urine Occult Blood TRACE (NEG) Urine Nitrite NEG (NEG) Urine Bilirubin NEG (NEG) Urine Urobilinogen NEG (NEG) Urine Leukocyte Esterase NEG (NEG) Urine WBC (Auto) 1-5 /hpf (0-5) Urine RBC (Auto) 0-4 /hpf (0-4) Urine Hyaline Casts (Auto) 1-5 /lpf (0-5) Urine Epithelial Cells (Auto) 5-10 /lpf (0-5) Urine Bacteria (Auto) NEG (NEG) Anion Gap 7.0 mmol/L (3-11) Est Creatinine Clear Calc Drug Dose 93.2 ml/min Estimated GFR () 85.9 Estimated GFR (Non- 74.1 BUN/Creatinine Ratio 16.9 (10-20) Calcium Level 8.9 mg/dl (8.5-10.1) White Blood Count 13.26 K/uL (4.8-10.8) Red Blood Count 4.96 M/uL (4.7-6.1) Hemoglobin 15.9 g/dL (14.0-18.0) Hematocrit 44.3 % (42-52) Mean Corpuscular Volume 89.3 fL (80-100) Mean Corpuscular Hemoglobin 32.1 pg (25-34) Mean Corpuscular Hemoglobin Concent 35.9 g/dl (32-36) Platelet Count 248 K/uL (130-400) Mean Platelet Volume 9.4 fL (7.4-10.4) Neutrophils (%) (Auto) 66.5 % Lymphocytes (%) (Auto) 23.6 % Monocytes (%) (Auto) 7.6 % Eosinophils (%) (Auto) 1.6 % Basophils (%) (Auto) 0.5 % Neutrophils # (Auto) 8.82 K/uL (1.4-6.5) Lymphocytes # (Auto) 3.13 K/uL (1.2-3.4) Monocytes # (Auto) 1.01 K/uL (0.11-0.59) Eosinophils # (Auto) 0.21 K/uL (0-0.5) Basophils # (Auto) 0.06 K/uL (0-0.2) RDW Standard Deviation 43.2 fL (36.4-46.3) RDW Coefficient of Variation 13.4 % (11.5-14.5) Immature Granulocyte % (Auto) 0.2 % Immature Granulocyte # (Auto) 0.03 K/uL (0.00-0.02) Toxic Granulation 1+ Laboratory results per my review. Medications Administered Medications (Trade) Dose Ordered Sig/Marilee Route Start Time Stop Time Status Last Admin Dose Admin Ketorolac Tromethamine (Toradol Inj) 60 mg STK-MED ONCE .ROUTE 05/27/17 00:16 05/27/17 00:17 DC 05/27/17 00:16 60 MG Procedure 0001: Toradol Inj 30mg IM ED Course 2353: Past medical records reviewed. The patient was evaluated in room A3. A complete history and physical exam was performed. Multiple attempts were made at IV lock initiation run successful. 0000: The patient's urinalysis was unremarkable. The patient was given 30 mg of IM Toradol. 0027: I reevaluated the patient. The IV team was in the room. 0052: I performed a testicular exam on the patient. He also has moderate pain relief from the Toradol. The patient went for an ultrasound of the renal system on the left. This is described as above. 0213: Upon reevaluation, the patient is stable. I discussed findings and results with him. He verbalized agreement of the treatment plan. He was discharged home. Medical Decision The patient is a 36 year old male who presents to the Emergency Room with complaints of constant left-sided flank pain beginning an hour ago. Differential diagnoses include: ureteral colic, pyelonephritis, testicular torsion, inguinal hernia, and groin strain. Lab Results Show: Urine has 1+ ketones, trace blood with no blood cells. Normal renal function and glucose. WBC 13.2. Stable H&H. This is a 36-year-old male patient presents to the emergency department with left flank pain radiating into the left groin. On physical exam, there is no evidence of any wall hernia. There were no skin lesions noted. Urinalysis had no red blood cells. Urine showed no evidence of hydronephrosis. I am unsure as the cause of the patient's left flank pain. He had moderate relief of his symptoms with the Toradol. I've encouraged patient to follow-up with his PCP if the symptoms persist. Medication Reconcilliation Current Medication List: was personally reviewed by me Blood Pressure Screening Patient's blood pressure: Elevated blood pressure Blood pressure disposition: Elevated BP felt to be situational (secondary to pain) Impression Primary Impression: Left flank pain Scribe Attestation The scribe's documentation has been prepared under my direction and personally reviewed by me in its entirety. I confirm that the note above accurately reflects all work, treatment, procedures, and medical decision making performed by me. Departure Information Dispostion Home / Self-Care Prescriptions No Active Prescriptions or Reported Meds Referrals No Doctor, Assigned (PCP) Forms HOME CARE DOCUMENTATION FORM, IMPORTANT VISIT INFORMATION Patient Instructions My [facility] Additional Instructions Motrin or tylenol for pain. Follow up with Dr. Loja later today if you have pain
[2017-05-27] MEDS ORDERED: NURSING VERBAL MED ORDER ONE (00:15)
[2017-05-27] MEDS ORDERED: KETOROLAC TROMETHAMINE 60 MG/2 ML VIAL ONE (00:16)
[2017-05-27 00:48] LABS: HEMATOCRIT 44.3 % (42-52); HEMOGLOBIN 15.9 g/dL (14.0-18.0); MEAN CELL VOLUME 89.3 fL (80-100); MEAN CORPUSCULAR HEMOGLOBIN 32.1 pg (25-34); MEAN CORPUSCULAR HGB CONC 35.9 g/dl (32-36); MEAN PLATELET VOLUME 9.4 fL (7.4-10.4); PLATELET COUNT 248 K/uL (130-400); RED CELL DISTRIBUTION WIDTH CV 13.4 % (11.5-14.5); RED CELL DISTRIBUTION WIDTH SD 43.2 fL (36.4-46.3); WHITE BLOOD COUNT 13.26 K/uL (4.8-10.8)
[2017-05-27 01:18] LABS: BASO % 0.5 %; BASO ABS # 0.06 K/uL (0-0.2); EOS % 1.6 %; EOS ABS # 0.21 K/uL (0-0.5); IG# 0.03 K/uL (0.00-0.02); LYMPH % 23.6 %; LYMPH ABS # 3.13 K/uL (1.2-3.4); MONO % 7.6 %; MONO ABS # 1.01 K/uL (0.11-0.59); NEUT % 66.5 %; NEUT ABS # 8.82 K/uL (1.4-6.5)
[2017-05-27 01:19] LABS: CALCIUM 8.9 mg/dl (8.5-10.1); CREATININE 1.25 mg/dl (0.60-1.40)
[2017-05-27 02:19] VITALS: BP 137/93; PULSE 95; O2SAT 98
--- NOTE | 2017-05-27 06:27 | DIAGNOSTIC IMAGING REPORT ---
(RENAL)RETROPERITON COMP HISTORY: Blank vein eval left kidney/ureter for stone COMPARISON: None. FINDINGS: Right kidney: Maximum dimension 10.3 cm. No evidence for hydronephrosis. Normal corticomedullary differentiation and cortical thickness. Left kidney: Maximum dimension 11.7 cm. No evidence for hydronephrosis. Normal corticomedullary differentiation and cortical thickness. Bladder: No bladder wall thickening. The bilateral ureteral jets were identified. IMPRESSION: Normal renal ultrasound. The above report was generated using voice recognition software. It may contain grammatical, syntax or spelling errors. Electronically signed by: Yehuda Maradiaga M.D. 05/27/2017 6:26 AM Dictated Date/Time: 05/27/2017 6:20 AM
== END 2017-05-27 02:19 | disposition home or self-care (01) ==
LOC: C.EDB 23:34 → C.EDA 05-27 02:19
DX: R10.9 Unspecified abdominal pain (principal); Z84.1 Family history of disorders of kidney and ureter; Z88.0 Allergy status to penicillin